=== PATIENT | male | born 1940 | race Caucasian/White ===

== ENCOUNTER → 2021-03-12 13:08 | Outpatient (BNVA) | payer MEDICARE, SELFPAY | PROVIDERS: PCP Emergency Medicine; Visit Provider Internal Medicine | DX: I25.10 Atherosclerotic heart disease of native coronary artery without angina pectoris (principal); E11.8 Type 2 diabetes mellitus with unspecified complications | CPT/HCPCS: 93005; 99212 ==

== ENCOUNTER 2021-05-28 20:25 | Emergency (ER) | payer MEDICARE, SELFPAY ==
--- NOTE | ~2021-05-28 | XR_ITS ---
EXAMINATION: XR CHEST CLINICAL INFORMATION: SOB COMPARISON: None TECHNIQUE: Frontal view of the chest was obtained. FINDINGS: No significant abnormality is noted involving the heart, lungs, mediastinum, bony thorax or soft tissues. XR/XR chest 1V IMPRESSION: Unremarkable chest examination.
[2021-05-28 20:48] VITALS: BP 175/85; PULSE 89; RESP 16; TEMP 36.7; O2SAT 98; BMI 23.9
[2021-05-28 22:14] LABS: Basophils Absolute Auto 0.1 X10*3/uL (0.0-0.2); Basophils Percent Auto 0.7 % (0-2); Eosinophils Absolute Auto 1.5 X10*3/uL (0.0-0.4); Eosinophils Percent Auto 15.3 % (0-4); Hematocrit 38.9 % (42-52); Hemoglobin 13.4 g/dl (14.0-18.0); Imm Gran Abs Auto 0.02 X10*3/uL (0.00-0.03); Imm Gran Pct Auto 0.2 % (0.0-0.4); Lymphocytes Absolute Auto 4.1 X10*3/uL (1.2-4.9); Lymphocytes Percent Auto 41.3 % (20-40); MANUAL DIFF FLAG NO; Mean Corpuscular HGB Conc 34.4 g/dl (31.0-36.0); Mean Corpuscular Hemoglobin 31.2 pg (27.0-33.0); Mean Corpuscular Volume 90.7 fL (80-98); Mean Platelet Volume 10.2 fL (9.4-12.4); Monocytes Absolute Auto 0.7 X10*3/uL (0.1-1.2); Monocytes Percent Auto 7.1 % (2-11); Neutrophils Absolute Auto 3.5 X10*3/uL (2.0-8.3); Neutrophils Percent Auto 35.4 % (45-73); Platelet Count 208 X10*3/uL (160-400); Red Blood Count 4.29 X10*6/uL (4.60-5.80); Red Cell Distribution Width 12.2 % (11.0-16.0)
[2021-05-28 22:27] LABS: IDNOW Serial# 9DD0AD1C; Strep A Nucleic Acid Negative (Negative)
[2021-05-28 22:29] LABS: COVID-19 Test Negative (Negative)
[2021-05-28 22:31] LABS: Anion Gap 13 (12-20); Blood Urea Nitrogen 27 mg/dL (9-16); Calcium 10.4 mg/dL (8.4-10.2); Carbon Dioxide 25 mmol/L (22-29); Chloride 100 mmol/L (96-108); Creatinine Clr Calc Pharmacy 23.1; Estimated Glomerular Filt Rate 31; Glucose Random 538 mg/dL (60-115); Sodium 133 mmol/L (135-145)
[2021-05-29 00:38] VITALS: BP 184/102; PULSE 89; RESP 20; O2SAT 99
[2021-05-29 06:07] VITALS: BP 84/51; PULSE 103; RESP 20; O2SAT 96
[2021-05-29 06:56] LABS: Troponin-I High Sensitivity 4.8 ng/L (<3.5-35.0)
--- NOTE | 2021-05-30 08:53 | ECG_ITS ---
Test Reason : THROAT TIGHTNESS Blood Pressure : / mmHG Vent. Rate : 088 BPM Atrial Rate : 088 BPM P-R Int : 164 ms QRS Dur : 084 ms QT Int : 376 ms P-R-T Axes : 071 -37 018 degrees QTc Int : 454 ms Normal sinus rhythm Left axis deviation Abnormal ECG When compared with ECG of 20-JUN-2017 14:43, No significant change was found Referred By: Rogelio Ramírez Electronically Signed By:DEVANTE KING
== END 2021-05-29 03:55 | disposition home or self-care (01) ==
PROVIDERS: Emergency Provider Emergency Medicine; PCP Emergency Medicine
DX: R06.02 Shortness of breath (principal); R13.10 Dysphagia, unspecified; Z20.822 Contact with and (suspected) exposure to COVID-19; Z79.899 Other long term (current) drug therapy
CPT/HCPCS: 36415; 71045; 80048; 84484; 85025; 87635; 87651; 93005; 99283

== ENCOUNTER 2021-05-29 15:15 | Emergency (ER) | payer MEDICARE, SELFPAY ==
--- NOTE | ~2021-05-29 | CT_ITS ---
EXAMINATION: CT SOFT TISSUE NECK WITHOUT CONTRAST CLINICAL INFORMATION: 80-year-old male with sensation of throat swelling. Evaluate for mass. COMPARISON: Chest radiographs from 06/20/2017 and 05/28/2021 TECHNIQUE: Noncontrast multidetector CT imaging was performed in the axial plane with generation of coronal and sagittal reformatted images. This CT examination was performed using dose optimization techniques as appropriate, variously including the following: *Automated exposure control *Adjustment of mA and/or kV according to patient size (this includes techniques or standardized protocols for targeted exams where dose is matched to indication/reason for exam; i.e. extremities or head) *Use of iterative reconstruction technique DLP: 514 mGy-cm FINDINGS: Parotid glands, submandibular glands, and thyroid gland are normal. The nasopharynx, oral cavity, tongue base, and tonsillar pillars are unremarkable. No contour abnormality within the oral cavity or pharyngeal mucosal space. The parapharyngeal fat planes are preserved. The hypopharynx, epiglottis, and preepiglottic space are unremarkable. Laryngeal structures normal. No fluid collections in the deep soft tissues. The visualized cervical and upper thoracic esophagus are unremarkable. No overt esophageal mass. No [place] diverticulum. Normal sized lymph nodes of the suprahyoid and infrahyoid neck without evidence of lymphadenopathy by size criteria. Calcified left hilar/peribronchial lymph nodes are compatible with sequela of remote granulomatous infection. Small calcified granuloma is present in the medial aspect of the right lower lobe. There is atherosclerotic calcification of cavernous carotid arteries. Skull base is intact and the mastoid air cells and middle ear cavities are clear. The visualized lower intracranial structures are unremarkable. No extra-axial fluid collection. The visualized paranasal sinuses are well aerated. Prior ocular lens replacements. Multilevel discovertebral junction changes of the cervical spine. There is moderate loss of disc space at C4-C5, C5-C6 and C6-C7. The hypertrophied uncovertebral joints cause multilevel neural foraminal stenosis, including severe right-sided neural foraminal stenosis at C5-C6. No prevertebral soft tissue swelling. There are peripheral pleural-parenchymal opacities and interstitial opacities of fibrosis in both upper lobes. A few very small calcified nodules are seen, including 0.2 cm calcified granuloma at the left lung apex Findings are compatible with sequela of remote infection. CT/CT soft tissue neck wo con IMPRESSION: * No acute imaging abnormalities. No evidence of soft tissue abscess, mass or lymphadenopathy in the neck. 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 * Moderate multilevel discovertebral degenerative changes, uncovertebral joint hypertrophy and multilevel neural foraminal stenosis of the cervical spine
[2021-05-29 15:46] VITALS: BP 134/86; PULSE 86; RESP 16; TEMP 36.6; O2SAT 98; BMI 25.4
[2021-05-29 16:10] LABS: Glucose, Whole Blood 319 mg/dL (60-115)
[2021-05-29 16:48] LABS: MANUAL DIFF FLAG NO
[2021-05-29 16:52] LABS: Basophils Absolute Auto 0.1 X10*3/uL (0.0-0.2); Basophils Percent Auto 0.7 % (0-2); Eosinophils Absolute Auto 1.1 X10*3/uL (0.0-0.4); Eosinophils Percent Auto 10.2 % (0-4); Hematocrit 41.3 % (42-52); Hemoglobin 13.9 g/dl (14.0-18.0); Imm Gran Abs Auto 0.03 X10*3/uL (0.00-0.03); Imm Gran Pct Auto 0.3 % (0.0-0.4); Lymphocytes Absolute Auto 3.9 X10*3/uL (1.2-4.9); Lymphocytes Percent Auto 35.5 % (20-40); Mean Corpuscular HGB Conc 33.7 g/dl (31.0-36.0); Mean Corpuscular Hemoglobin 30.5 pg (27.0-33.0); Mean Corpuscular Volume 90.6 fL (80-98); Mean Platelet Volume 10.4 fL (9.4-12.4); Monocytes Absolute Auto 0.9 X10*3/uL (0.1-1.2); Neutrophils Absolute Auto 4.9 X10*3/uL (2.0-8.3); Neutrophils Percent Auto 45.3 % (45-73); Platelet Count 221 X10*3/uL (160-400); Red Blood Count 4.56 X10*6/uL (4.60-5.80); White Blood Count 10.8 X10*3/uL (4.8-10.8)
[2021-05-29 17:03] LABS: Appearance Urine HAZY; Color Urine YELLOW; Glucose Urine UA >=1000 MG/DL (NEG); Leukocyte Esterase Urine 1+ (NEG); Nitrite Urine NEG (NEG); PH 5.5 (5.0-8.0); Specific Gravity - Urine 1.025 (1.005-1.025); UACC Culture Trigger YES; Urine Blood 1+ (NEG); Urine Ketones NEG (NEG); Urine Protein 2+ MG/DL (NEG-TRACE)
[2021-05-29 17:19] LABS: Alanine Aminotransferase 28 U/L (0-40); Albumin Level 4.5 g/dL (3.5-5.0); Alkaline Phosphatase 113 U/L (39-117); Anion Gap 15 (12-20); Aspartate Amino Transferase 23 U/L (5-37); Bilirubin Total 0.7 mg/dL (0.0-1.0); Blood Urea Nitrogen 27 mg/dL (9-16); Calcium 10.8 mg/dL (8.4-10.2); Carbon Dioxide 25 mmol/L (22-29); Chloride 100 mmol/L (96-108); Creatinine Clr Calc Pharmacy 22.5; Estimated Glomerular Filt Rate 35; Glucose Random 338 mg/dL (60-115); Potassium 5.1 mmol/L (3.3-5.1); Sodium 135 mmol/L (135-145); Total Protein 8.8 g/dL (6.5-8.0)
[2021-05-29 18:18] LABS: Bacteria Urine 4+ /LPF; WBC Urine 50-75 /HPF (0-4)
[2021-05-29 20:06] VITALS: BP 147/84; PULSE 71; RESP 16; TEMP 36.5; O2SAT 100
--- NOTE | 2021-05-29 20:24 | ED_ITS ---
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 Patient has been complaining of sore throat patient tested negative for COVID yesterday. Otherwise patient declined any headache, no chest pain, no difficulty breathing, no abdominal pain, no fever, no chills. Related Data Home Medications Medication Instructions Recorded Confirmed aspirin 81 mg tablet,delayed 81 mg PO DAILY 03/12/21 03/12/21 release atorvastatin 80 mg tablet 80 mg PO DAILY 03/12/21 03/12/21 metformin 500 mg tablet 500 mg PO BID 03/12/21 03/12/21 metoprolol succinate 25 mg 25 mg PO QAM 03/12/21 03/12/21 tablet,extended release 24 hr nitroglycerin 0.4 mg sublingual 0.4 mg SUBLINGUAL Q5M PRN 03/12/21 03/12/21 tablet omeprazole 20 mg capsule,delayed 20 mg PO QAM 03/12/21 03/12/21 release Allergies Allergy/AdvReac Type Severity Reaction Status Date / Time No Known Allergies Allergy Mild NONE Verified 03/12/21 13:46 Review of Systems Review of Systems: All other systems are reviewed and are negative Constitutional: Reports as per HPI and Reports no additional constitutional complaints Eyes: Reports as per HPI and Reports no additional eye complaints Reports system reviewed and no additional complaints, except as documented Cardiovascular: Reports as per HPI and Reports no additional cardiovascular complaints Respiratory: Reports as per HPI and Reports no additional respiratory complaints Gastrointestinal: Reports as per HPI and Reports no additional gastrointestinal complaints Genitourinary: Reports no additional female genitourinary complaints Musculoskeletal: Reports no additional musculoskeletal complaints Skin/Breast: Reports system reviewed and no additional complaints, except as docu Psychiatric: Reports no additional psychiatric complaints Endocrine: Reports no additional endocrine complaints Hematologic/Lymphatic: Reports no additional hematologic/lymphatic complaints Allergic/Immunologic: Reports no additional allergic/immunologic complaints Reports system reviewed and no additional complaints, except as documented and Reports Abnormal speech present [facility] Past Medical History Surgical History No pertinent past surgical history Family History Family History Father No problems noted. Mother No problems noted. Social History Social History Patient Tobacco Use Status: Never used Tobacco Use of substances other than those prescribed or required for medical reasons: No Advance Directives: No Advance Directives Information Provided: Yes Physical Exam Vital Signs: Vital Signs: Last Vital Signs Temp 97.7 F 05/29/21 20:06 Pulse 89 05/29/21 23:50 Resp 16 05/29/21 23:50 BP 121/85 05/29/21 23:50 Pulse Ox 99 05/29/21 23:50 Body Mass Index 25.4 Vital signs have been reviewed as appeared to be correct. Blood pressure normal. Heart rate normal. Respiration rate normal. Temperature normal. Oxygen saturation normal. Appearance: Alert. Oriented X3. No acute distress. Head: Normal external exam. Normocephalic. Atraumatic. No Prince signs noted. No raccoon eyes noted Eyes: PERRLA. EOMI. Conjunctiva and sclera normal. Eyelids normal. ENT: TM's Normal. Pharynx normal. Uvula midline. Moist mucous membranes. No trismus noted. No drooling noted. No muffled voice noted. Neck: Normal inspection. Neck supple. FROM. No adenopathy. Thyroid Normal. No meningeal signs. No neck mass noted. Patent airway no stridor. CVS: Normal heart rate and rhythm. Heart sound normal. No murmurs noted. Pulses normal throughout. Respiratory: No respiratory distress. Painless inspiration. Breath sounds nor mal. No wheezes/rales/rhonchi noted. Chest nontender. No accessory muscle usage noted or decreased air movement noted. Abdomen: Soft and nontender. Bowel sounds normal in all 4 quadrants. No distent ion noted. No organomegaly noted. No visible injury noted. Back: No CVA tenderness. Full range of motion noted. Skin: Skin warm and dry. Normal skin color. Normal skin turgor. No rashes/lesions/lacerations noted. Extremities: No lower extremity edema. Extremities exhibit normal range of mot ion. Extremities nontender. Neuro: Oriented X 3. Cranial nerve exam: II-XII are grossly intact No motor deficit. No sensory deficit. Reflexes normal. Course Course Course Narrative: Assessment and plan. 80-year-old male came in with elevated blood sugar, patient is taking 500 mg of Glucophage white a day which felt it is insufficient to control patient's diabetes, patient was given an extra 1000 mg of Glucophage which lowered the patient's blood sugar. Patient is negative for COVID, negative for strep pharyngitis, CT of the neck soft tissue is unremarkable with patent airway. Will discharge the patient home with increased dose of glucose fashion to a 1000 mg b.i.d., instruction was explained to the patient and the daughter with interpretation patient fully understands instructions. Medical Decision Making Lab Data Lab results reviewed: Yes I reviewed the patient's lab results. Result diagrams: 05/29/21 16:31 05/29/21 16:31 Labs: Lab Results 05/29/21 05/29/21 05/29/21 Range/Units 15:54 16:27 16:31 WBC 10.8 (4.8-10.8) X10*3/uL RBC 4.56 L (4.60-5.80) X10*6/uL Hgb 13.9 L (14.0-18.0) g/dl Hct 41.3 L (42-52) % MCV 90.6 (80-98) fL MCH 30.5 (27.0-33.0) pg MCHC 33.7 (31.0-36.0) g/dl RDW 12.0 (11.0-16.0) % Plt Count 221 (160-400) X10*3/uL MPV 10.4 (9.4-12.4) fL Immature Gran % (Auto) 0.3 (0.0-0.4) % Neut % (Auto) 45.3 (45-73) % Lymph % (Auto) 35.5 (20-40) % [place] % (Auto) 8.0 (2-11) % Eos % (Auto) 10.2 H (0-4) % Baso % (Auto) 0.7 (0-2) % Lymph # (Auto) 3.9 (1.2-4.9) X10*3/uL [place] # (Auto) 0.9 (0.1-1.2) X10*3/uL Eos # (Auto) 1.1 H (0.0-0.4) X10*3/uL Baso # (Auto) 0.1 (0.0-0.2) X10*3/uL Abs Immat Gran (auto) 0.03 (0.00-0.03) X10*3/uL Absolute Neuts (auto) 4.9 (2.0-8.3) X10*3/uL Absolute Nucleated RBC 0.000 (0.0-0.012) X10*3/uL Nucleated RBC % (auto) 0.0 (0.0-0.2) /100WBC Sodium (135-145) mmol/L Potassium (3.3-5.1) mmol/L Chloride (96-108) mmol/L Carbon Dioxide (22-29) mmol/L Anion Gap (12-20) BUN (9-16) mg/dL Creatinine (0.5-1.4) mg/dL Estim Creat Clear Calc Estimated GFR POC Glucose 319 H (60-115) mg/dL Random Glucose (60-115) mg/dL Calcium (8.4-10.2) mg/dL Total Bilirubin (0.0-1.0) mg/dL AST (5-37) U/L ALT (0-40) U/L Alkaline Phosphatase (39-117) U/L Total Protein (6.5-8.0) g/dL Albumin (3.5-5.0) g/dL Urine Color YELLOW Urine Appearance HAZY Urine pH 5.5 (5.0-8.0) Ur Specific [place] 1.025 (1.005-1.025) Urine Protein 2+ H (NEG-TRACE) MG/DL Urine Glucose (UA) >=1000 H (NEG) MG/DL Urine Ketones NEG (NEG) MG/DL Urine Blood 1+ H (NEG) Urine Nitrite NEG (NEG) Ur Leukocyte Esterase 1+ H (NEG) Urine RBC 1-4 (0) /HPF Urine WBC 50-75 H (0-4) /HPF Ur Squamous Epith Cells NONE /LPF Urine Bacteria 4+ /LPF 05/29/21 05/29/21 Range/Units 16:31 21:17 WBC (4.8-10.8) X10*3/uL RBC (4.60-5.80) X10*6/uL Hgb (14.0-18.0) g/dl Hct (42-52) % MCV (80-98) fL MCH (27.0-33.0) pg MCHC (31.0-36.0) g/dl RDW (11.0-16.0) % Plt Count (160-400) X10*3/uL MPV (9.4-12.4) fL Immature Gran % (Auto) (0.0-0.4) % Neut % (Auto) (45-73) % Lymph % (Auto) (20-40) % [place] % (Auto) (2-11) % Eos % (Auto) (0-4) % Baso % (Auto) (0-2) % Lymph # (Auto) (1.2-4.9) X10*3/uL [place] # (Auto) (0.1-1.2) X10*3/uL Eos # (Auto) (0.0-0.4) X10*3/uL Baso # (Auto) (0.0-0.2) X10*3/uL Abs Immat Gran (auto) (0.00-0.03) X10*3/uL Absolute Neuts (auto) (2.0-8.3) X10*3/uL Absolute Nucleated RBC (0.0-0.012) X10*3/uL Nucleated RBC % (auto) (0.0-0.2) /100WBC Sodium 135 (135-145) mmol/L Potassium 5.1 (3.3-5.1) mmol/L Chloride 100 (96-108) mmol/L Carbon Dioxide 25 (22-29) mmol/L Anion Gap 15 (12-20) BUN 27 H (9-16) mg/dL Creatinine 1.88 H (0.5-1.4) mg/dL Estim Creat Clear Calc 22.5 Estimated GFR 35 POC Glucose 225 H (60-115) mg/dL Random Glucose 338 H D (60-115) mg/dL Calcium 10.8 H (8.4-10.2) mg/dL Total Bilirubin 0.7 (0.0-1.0) mg/dL AST 23 (5-37) U/L ALT 28 (0-40) U/L Alkaline Phosphatase 113 (39-117) U/L Total Protein 8.8 H (6.5-8.0) g/dL Albumin 4.5 (3.5-5.0) g/dL Urine Color Urine Appearance Urine pH (5.0-8.0) Ur Specific [place] (1.005-1.025) Urine Protein (NEG-TRACE) MG/DL Urine Glucose (UA) (NEG) MG/DL Urine Ketones (NEG) MG/DL Urine Blood (NEG) Urine Nitrite (NEG) Ur Leukocyte Esterase (NEG) Urine RBC (0) /HPF Urine WBC (0-4) /HPF Ur Squamous Epith Cells /LPF Urine Bacteria /LPF Imaging Data Chest x-ray: Radiologist's impression: Unremarkable chest examination. Soft tissue neck CT: Radiologist's impression: *? No acute imaging abnormalities. No evidence of soft tissue abscess, mass or lymphadenopathy in the neck. *? 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 *? Moderate multilevel discovertebral degenerative changes, uncovertebral joint hypertrophy and multilevel neural foraminal stenosis of the cervical spine Discharge Plan Discharge Clinical Impression: Acute sore throat, Hyperglycemia Patient Disposition: Home, Self-Care Instructions: Diabetic Hyperglycemia (ED) Additional Instructions: Increase Glucophage from 500 mg twice a day to 1000 mg twice a day (2 pills of 500 mg in the morning and 2 pills at night) Prescriptions: No Action metoprolol succinate 25 mg tablet extended release 24 hr 25 mg PO QAM RF: 0 omeprazole 20 mg capsule,delayed release(DR/EC) 20 mg PO QAM RF: 0 aspirin 81 mg tablet,delayed release (DR/EC) 81 mg PO DAILY RF: 0 atorvastatin 80 mg tablet 80 mg PO DAILY RF: 0 metformin 500 mg tablet 500 mg PO BID RF: 0 nitroglycerin 0.4 mg tablet, sublingual 0.4 mg sublingual Q5M PRNRF: 0 Referrals: Physician,Unknown [Primary Care Provider] - 2 days Interventions: ED Discharge Assessment Last Done: 05/29/21 23:50 Discharge Date/Time: 05/29/21 23:51
[2021-05-29] MEDS: Acetaminophen 325 MG TABLET 650 MG PO (20:25)
[2021-05-29] MEDS: 0.9 % Sodium Chloride 1,000 ML 999 ML IVCONT (20:35)
[2021-05-29] MEDS: metFORMIN HCl 1,000 MG TABLET 1000 MG PO (20:38)
--- NOTE | 2021-05-29 21:18 | PC.NURSE ---
PT received metformin for elevated blood sugar. POC was 225 at 21:18.
[2021-05-29 21:23] LABS: Glucose, Whole Blood 225 mg/dL (60-115)
--- NOTE | 2021-05-29 21:23 | PC.NURSE ---
Repeat poc taken 225 improvement provider aware.
[2021-05-29 23:50] VITALS: BP 121/85; PULSE 89; RESP 16; O2SAT 99
== END 2021-05-29 23:51 | disposition home or self-care (01) ==
PROVIDERS: Emergency Provider Emergency Medicine
DX: J02.9 Acute pharyngitis, unspecified (principal); R73.9 Hyperglycemia, unspecified; M54.2 Cervicalgia; Z79.899 Other long term (current) drug therapy; Z79.82 Long term (current) use of aspirin
CPT/HCPCS: 36415; 70490; 80053; 81001; 81003; 82947; 85025; 87086; 96360; 99284

== ENCOUNTER 2021-06-03 02:25 | Emergency (ER) | payer MEDICARE, SELFPAY ==
[2021-06-03 02:30] VITALS: BP 139/90; PULSE 91; RESP 18; O2SAT 99; BMI 20.4
--- NOTE | 2021-06-03 02:50 | ED_ITS ---
HPI - Dizziness General Chief Complaint: Dizziness Stated Complaint: Dizziness Time Seen by Provider: 06/03/21 02:49 Source: patient and family Mode of arrival: ambulatory Limitations: no limitations History of Present Illness HPI Narrative: Patient is 80 years old with history of diabetes on metformin comes here for throat pain and dizziness. Patient was seen here on 05/29 CT scan of the neck was negative patient was advised to increase the dose of metformin to 1000 twice daily from 500mg twice daily patient creatinine was 1.88 with history of CKD. On arrival today blood sugar was 202 at home was 324. Patient also complaining of dizziness with spinning movements which started yesterday with history of same in the past no headache no neck pain. Patient unable to eat much because of whenever he eats something he feel pain in his throat. Related Data Home Medications Medication Instructions Recorded Confirmed aspirin 81 mg tablet,delayed 81 mg PO DAILY 03/12/21 03/12/21 release atorvastatin 80 mg tablet 80 mg PO DAILY 03/12/21 03/12/21 metformin 500 mg tablet 500 mg PO BID 03/12/21 03/12/21 metoprolol succinate 25 mg 25 mg PO QAM 03/12/21 03/12/21 tablet,extended release 24 hr nitroglycerin 0.4 mg sublingual 0.4 mg SUBLINGUAL Q5M PRN 03/12/21 03/12/21 tablet omeprazole 20 mg capsule,delayed 20 mg PO QAM 03/12/21 03/12/21 release Previous Rx's Medication Instructions Recorded cefpodoxime 100 mg tablet 100 mg PO BID #20 tab 06/03/21 fluconazole 100 mg tablet 100 mg PO DAILY #7 tab 06/03/21 (Diflucan) glipizide 5 mg tablet 5 mg PO BID #60 tab 06/03/21 meclizine 12.5 mg tablet 12.5 mg PO TID PRN #30 tab 06/03/21 Allergies Allergy/AdvReac Type Severity Reaction Status Date / Time No Known Allergies Allergy Mild NONE Verified 03/12/21 13:46 Review of Systems Review of Systems: Yes all other systems are reviewed and are negative [facility] Past Medical History Surgical History No pertinent past surgical history Family History Family History Father No problems noted. Mother No problems noted. Social History Social History Alcohol intake: unknown Patient Tobacco Use Status: Never used Tobacco Use of substances other than those prescribed or required for medical reasons: No Advance Directives: No Physical Exam Vital Signs: Vital Signs: Last Vital Signs Pulse 91 06/03/21 02:30 Resp 18 06/03/21 02:30 BP 139/90 H 06/03/21 02:30 Pulse Ox 99 06/03/21 02:30 Body Mass Index 20.4 Appearance: Alert. Oriented X3. No acute distress. Eyes: PERRLA, No Nystagmus ENT: . Oral Mucosa moist oral thrush+ Neck: Normal inspection. Neck supple. CVS: Normal heart rate and rhythm. Pulses normal. Respiratory: No respiratory distress. Equal air entry bilateral, no wheezing/rales/rhonchi Abdomen: Soft and nontender. Bowel sounds are present, no mass palpable, no CVA tenderness Skin: Skin warm and dry. Normal skin color. Normal skin turgor. Extremities: No lower extremity edema. No calf tenderness Neuro: Oriented X 3. No motor deficit. No sensory deficit.No cerebellar signs , cranial nerves II-XII intact Course Reevaluation(s) Reevaluation #1: Patient has oral thrush because of the throat pain likely. Will give him Diflucan. Patient is on metformin with CKD with creatinine in the range of 1.8 we will stop metformin as this is not the right medication when patient has CKD. Will start the patient on glipizide for now as this does not have any active metabolic , family is not ready yet for insu wisam had a follow-up plan to see his PCP next week and decide. About dizziness patient will be given meclizine 12.5 mg 3 times a day patient had dizziness in the past for similar symptoms Time: 04:35 [facility] - Dizziness Lab Data Attestation: I reviewed the patient's lab results. Labs: Lab Results 06/03/21 Range/Units 03:38 POC Glucose 202 H (60-115) mg/dL ECG Data Attestation: I personally reviewed and interpreted this ECG as follows: Interpretation: Normal sinus rhythm heart rate 82 beats per minute left axis deviation normal intervals normal axis no acute ST wave changes no acute ischemic Discharge Plan Discharge Clinical Impression: Candidiasis of mouth Benign paroxysmal positional vertigo Qualifiers: Laterality: bilateral Qualified Code(s): H81.13 - Benign paroxysmal vertigo, bilateral Patient Disposition: Home, Self-Care Instructions: Oral Candidiasis (ED), Benign Paroxysmal Positional Vertigo (ED) Additional Instructions: Drink plenty of fluids Stop metformin as your kidneys are weak Start on glipizide 5 mg 2 times daily Check blood sugar daily and follow with PCP Take meclizine 12.5 mg 3 times a day as needed for dizziness Take Diflucan 100 mg daily for oral thrush Prescriptions: New fluconazole [Diflucan] 100 mg tablet 100 mg PO DAILY Qty: 7 RF: 0 glipizide 5 mg tablet 5 mg PO BID Qty: 60 RF: 0 meclizine 12.5 mg tablet 12.5 mg PO TID PRN (Reason: dizziness) Qty: 30 RF: 0 cefpodoxime 100 mg tablet 100 mg PO BID Qty: 20 RF: 0 No Action metoprolol succinate 25 mg tablet extended release 24 hr 25 mg PO QAM RF: 0 omeprazole 20 mg capsule,delayed release(DR/EC) 20 mg PO QAM RF: 0 aspirin 81 mg tablet,delayed release (DR/EC) 81 mg PO DAILY RF: 0 atorvastatin 80 mg tablet 80 mg PO DAILY RF: 0 metformin 500 mg tablet 500 mg PO BID RF: 0 nitroglycerin 0.4 mg tablet, sublingual 0.4 mg sublingual Q5M PRNRF: 0 Interventions: ED Discharge Assessment Last Done: 06/03/21 05:03 Discharge Date/Time: 06/03/21 05:06
--- NOTE | 2021-06-03 02:54 | PC.NURSE ---
The initial complaint was dizziness but when asking the patient why he was here he stated that he was having issues swallowing. Patient was just here 1 week ago for the same complaint and was discharged home. MD at bedside for evaluation.
[2021-06-03] MEDS: Meclizine HCl 25 MG TABLET PO (03:21)
[2021-06-03] MEDS: Fluconazole 150 MG TABLET PO (03:21)
[2021-06-03] MEDS: Lidocaine HCl Viscous 2 % 15 ML SOLUTION MUCOUS MEM (03:21)
[2021-06-03] MEDS: Amoxicillin/Potassium Clav 875 MG TABLET PO (03:35)
[2021-06-03 03:43] LABS: Glucose, Whole Blood 202 mg/dL (60-115)
--- NOTE | 2021-06-03 07:52 | ECG_ITS ---
Test Reason : DIZZINESS Blood Pressure : / mmHG Vent. Rate : 082 BPM Atrial Rate : 082 BPM P-R Int : 162 ms QRS Dur : 084 ms QT Int : 382 ms P-R-T Axes : 078 -33 035 degrees QTc Int : 446 ms Normal sinus rhythm Left axis deviation Abnormal ECG When compared with ECG of 29-MAY-2021 00:50, No significant change was found Referred By: Sotero Dalal Electronically Signed By:DEVANTE KING
== END 2021-06-03 05:06 | disposition home or self-care (01) ==
PROVIDERS: Emergency Provider Internal Medicine
DX: B37.0 Candidal stomatitis (principal); H81.13 Benign paroxysmal vertigo, bilateral; E11.9 Type 2 diabetes mellitus without complications; Z79.84 Long term (current) use of oral hypoglycemic drugs; Z79.899 Other long term (current) drug therapy; Z79.82 Long term (current) use of aspirin
CPT/HCPCS: 82947; 93005; 99284

== ENCOUNTER → 2022-05-13 13:57 | Outpatient (BNVA) | payer MEDICARE, SELFPAY | PROVIDERS: PCP Internal Medicine; Visit Provider Internal Medicine | DX: I25.10 Atherosclerotic heart disease of native coronary artery without angina pectoris (principal); I35.9 Nonrheumatic aortic valve disorder, unspecified; I05.9 Rheumatic mitral valve disease, unspecified; E11.8 Type 2 diabetes mellitus with unspecified complications; Z79.82 Long term (current) use of aspirin; Z79.84 Long term (current) use of oral hypoglycemic drugs; Z79.899 Other long term (current) drug therapy | CPT/HCPCS: 93005; 99212 ==

== ENCOUNTER 2023-05-19 13:29 | Outpatient (AMB) | payer MEDICARE, SELFPAY ==
[2023-05-19 13:52] VITALS: BP 110/80; PULSE 77; BMI 25.9
--- NOTE | 2023-05-19 13:52 | A.OFFVIS_ITS ---
Intake Vital Signs 05/19/23 13:52 Height 5 ft 3 in Weight 145 lb 15.136 oz BMI 25.9 BP 110/80 Blood Pressure Location Lt brachial Position Sitting Pulse 77 Intake Visit Reasons: 1 year follow up Intake Note: 1 year follow up w/ EKG Audio Visual Design Engineer Required: Yes Audio Visual Design Engineer Language: Chemical Laboratory Technician Name: Roney [id number] Accompanied by: Spouse Allergies No Known Allergies Allergy (Mild, Verified 05/19/23 13:52) NONE Medication List - Last Reconciled 05/19/23 by Ben Tomlinson MD aspirin 81 mg PO DAILY atorvastatin 80 mg PO DAILY dapagliflozin propanediol (Farxiga) 10 mg PO QAM glipizide 5 mg PO BID metformin 500 mg PO BID metoprolol succinate ER 25 mg PO QAM nitroglycerin 0.4 mg sublingual Q5M PRN omeprazole 20 mg PO QAM HPI HPI Comments History of Present Illness Details Solomon returns for follow-up regarding coronary artery disease. He had an inferior STEMI in 2016. Discussed with patient using work from home. He states that he is feeling fine. No cardiac symptoms like angina or shortness of breath or anything along those lines. [facility] Surgical History No pertinent past surgical history Family History Father No problems noted. Mother No problems noted. Social History Alcohol intake: unknown Patient Tobacco Use Status: Never used Tobacco Review of Systems Const Denies weakness ENT Denies dizziness Card Denies chest pain, Denies chest pain with activity, Denies syncope, Denies rapid heart rate, Denies pedal edema, Denies edema, Denies leg edema, Denies lightheadedness, Denies palpitations, Denies dyspnea, Denies dyspnea on exertion and Denies orthopnea Resp Denies cough, Denies dyspnea and Denies dyspnea on exertion GI Denies hematochezia and Denies change in stool character Musc Denies abnormal gait, Denies muscle cramps, Denies muscle weakness, Denies numbness, Denies radiating pain into limb and Denies tingling Neuro Denies abnormal gait, Denies dizziness, Denies syncope, Denies numbness, Denies tingling and Denies weakness Endo Denies palpitations Physical Exam Vital Signs: Last Vital Signs Pulse 77 05/19/23 13:52 BP 110/80 05/19/23 13:52 BMI result Body Mass Index 25.9 Const General: comfortable and no acute distress Orientation/consciousness: patient oriented x3 HEENT Other: Unremarkable Head: Yes normal to inspection Neck Neck: Yes normal visual inspection Chest Chest palpation & inspection: normal inspection of the chest Resp Auscultation: clear to auscultation bilaterally Cardio Palpation: normal PMI Heart sounds: S1 normal heart sound present, S2 normal heart sound present, no gallops, no murmurs and no rubs GI Palpation (GI): Soft to palpation Back/Spine/Pelvis Other: unremarkable Skin General skin exam: no rashes or lesions noted Neuro General: patient oriented x3 Extrem General: Yes normal to inspection Psych Mental Status: mental status grossly normal Assessment & Plan Assessment & Plan (1) Atherosclerotic cardiovascular disease: Code(s): I25.10 - Atherosclerotic heart disease of [place] coronary artery without angina pectoris Plan: Cardiac catheterization reviewed from 2015. At that time, RCA was small in size and thought to have chronic stenosis.? He also had intermediate grade lesions in the LAD; 100% stenosis distal circumflex.? Continue aspirin, beta-blockers and statins. As [facility] goes to the [facility], lipids can be followed through the PCP. Need not duplicate. (2) Type 2 diabetes mellitus with unspecified complications: Code(s): E11.8 - Type 2 diabetes mellitus with unspecified complications Plan: On a combination of glipizide, metformin, Farxiga. (3) Aortic valve calcification: Code(s): I35.9 - Nonrheumatic aortic valve disorder, unspecified Plan: Last echocardiogram from 2019 shows mild aortic valve calcification but no valvular dysfunction. There is a possibility of aortic stenosis in the future. Can be reassessed as needed. (4) Mitral annular calcification: Code(s): I05.9 - Rheumatic mitral valve disease, unspecified Plan: Echocardiogram from 2019 with mild mitral annular calcification but no valvular dysfunction. No specific management. Plan Total time spent including review of medical records, counseling, documentation, use of solderer dipper, coordination of care-32 minutes. Coding Level of Care Code Est Pt Level 4 (72096) Diagnoses Atherosclerotic cardiovascular disease I25.10 Type 2 diabetes mellitus with unspecified complications E11.8 Aortic valve calcification I35.9 Mitral annular calcification I05.9
== END 2023-05-19 14:08 | disposition home or self-care (01) ==
PROVIDERS: Visit Provider Internal Medicine
DX: I25.10 Atherosclerotic heart disease of native coronary artery without angina pectoris (principal); E11.8 Type 2 diabetes mellitus with unspecified complications; I35.9 Nonrheumatic aortic valve disorder, unspecified; I05.9 Rheumatic mitral valve disease, unspecified
CPT/HCPCS: 93010; 99214

== ENCOUNTER → 2023-05-19 13:29 | Outpatient (BNVA) | payer MEDICARE, SELFPAY | PROVIDERS: Visit Provider Internal Medicine | DX: I25.10 Atherosclerotic heart disease of native coronary artery without angina pectoris (principal); I35.9 Nonrheumatic aortic valve disorder, unspecified; I05.9 Rheumatic mitral valve disease, unspecified; E11.8 Type 2 diabetes mellitus with unspecified complications | CPT/HCPCS: 93005; 99212 ==

== ENCOUNTER 2023-07-07 08:03 | Outpatient (REF) | payer MEDICARE, SELFPAY ==
[2023-07-07 11:29] LABS: MANUAL DIFF FLAG NO
[2023-07-07 11:45] LABS: Basophils Absolute Auto 0.1 X10*3/uL (0.0-0.2); Basophils Percent Auto 0.8 % (0-2); Eosinophils Absolute Auto 1.9 X10*3/uL (0.0-0.4); Eosinophils Percent Auto 19.2 % (0-4); Hematocrit 46.7 % (42.0-52.0); Hemoglobin 15.4 g/dl (14.0-18.0); Imm Gran Abs Auto 0.02 X10*3/uL (0.00-0.03); Imm Gran Pct Auto 0.2 % (0.0-0.4); Lymphocytes Absolute Auto 4.1 X10*3/uL (1.2-4.9); Lymphocytes Percent Auto 42.3 % (20-40); Mean Corpuscular Hemoglobin 30.6 pg (27.0-33.0); Mean Corpuscular Volume 92.7 fL (80.0-98.0); Monocytes Absolute Auto 0.8 X10*3/uL (0.1-1.2); Neutrophils Absolute Auto 2.8 x10*3/uL (2.0-8.3); Neutrophils Percent Auto 29.5 % (45-73); Platelet Count 251 X10*3/uL (160-400); Red Blood Count 5.04 X10*6/uL (4.60-5.80); Red Cell Distribution Width 13.3 % (11.0-16.0); White Blood Count 9.6 X10*3/uL (4.8-10.8)
[2023-07-07 11:56] LABS: Estimated Average Glucose 171 mg/dL; Hemoglobin A1c % 7.6 % (<6.0)
[2023-07-07 12:19] LABS: Anion Gap 15 (12-20); Blood Urea Nitrogen 27 mg/dL (9-16); Calcium 10.3 mg/dL (8.4-10.2); Carbon Dioxide 24 mmol/L (22-29); Chloride 104 mmol/L (96-108); Estimated Glomerular Filt Rate 37; Glucose Random 150 mg/dL (60-115); Sodium 138 mmol/L (135-145); Vitamin D 25-OH Total 54.6 ng/mL (>30)
[2023-07-07 12:19] LABS: Creatinine Urine 99.63 mg/dL; Microalbum/Creatinine Ratio Ur 215.7 ug/mg cr (<30)
[2023-07-08 13:48] LABS: Calcium (PTHI) 10.1 mg/dL (8.6-10.3); PTHI 81 pg/mL (16-77)
== END 2023-07-07 08:04 | disposition home or self-care (01) ==
LOC: HO.HHCL 08:03
PROVIDERS: Visit Provider Internal Medicine
DX: E11.22 Type 2 diabetes mellitus with diabetic chronic kidney disease (principal); N18.32 Chronic kidney disease, stage 3b; Z79.4 Long term (current) use of insulin
CPT/HCPCS: 36415; 80048; 82043; 82306; 82570; 83036; 83970; 85025

== ENCOUNTER 2023-07-22 17:02 | Inpatient (IN) | payer OTHER, SELFPAY ==
[2023-07-22] VITALS (7 sets, daily range): BP systolic 117–137; BP diastolic 73–85; PULSE 112–123; RESP 18–24; TEMP 37.3–39.6; O2SAT 95–98; BMI 26.1
--- NOTE | ~2023-07-22 | XR_ITS ---
EXAMINATION: CHEST 2 VIEWS CLINICAL INFORMATION: cough, SOB. COMPARISON: 05/28/2021. TECHNIQUE: AP frontal and lateral views of the chest obtained FINDINGS: The lungs are hypoexpanded. Chronic appearing reticular markings but no superimposed focal infiltrate, effusion, edema, or pneumothorax. Cardiac and mediastinal silhouettes are within normal limits for technique. No acute bony abnormality seen XR/XR chest 2V IMPRESSION: Hypoexpanded but otherwise no evidence of acute disease.
--- NOTE | 2023-07-22 17:36 | ECG_ITS ---
Test Reason : SEPSIS Blood Pressure : / mmHG Vent. Rate : 126 BPM Atrial Rate : 126 BPM P-R Int : 164 ms QRS Dur : 082 ms QT Int : 304 ms P-R-T Axes : 063 -50 039 degrees QTc Int : 440 ms Sinus tachycardia RSR' or QR pattern in V1 suggests right ventricular conduction delay Left anterior fascicular block Abnormal ECG When compared with ECG of 03-JUN-2021 02:36, Vent. rate has increased BY 44 BPM Referred By: Radha Neil Electronically Signed By:ALEA SELLERS MD
--- NOTE | 2023-07-22 17:44 | ED_ITS ---
HPI - General Adult General Chief complaint: Nausea/Vomiting/Diarrhea Stated complaint: COUGH,FEBRILE,WEAKNESS Time Seen by Provider: 07/22/23 17:06 History of Present Illness HPI narrative: Patient is an 82-year-old male with reported past medical history of CKD stage 3, type 2 diabetes, myocardial infarction 4 years ago who presents to the emergency department via EMS with multiple complaints. Per patient and his daughter he has been experiencing a productive cough with green phlegm for the past 2-3 days. Today he is experiencing a headache, sore throat, significant weakness unable to stand up alone, at baseline he is ambulatory without the use of assistive devices independently, shortness of breath, chills, tactile fever. He also had 2 episodes of bilious vomiting today, one occurring just prior to arrival. Denies chest pain, abdominal pain, constipation, diarrhea, genitourinary symptoms. Related Data Home Medications Medication Instructions Recorded Confirmed aspirin 81 mg tablet,delayed 81 mg PO DAILY 03/12/21 07/22/23 release atorvastatin 80 mg tablet 80 mg PO DAILY 03/12/21 07/22/23 metoprolol succinate 25 mg 25 mg PO QAM 03/12/21 07/22/23 tablet,extended release 24 hr omeprazole 20 mg capsule,delayed 20 mg PO QAM 03/12/21 07/22/23 release dapagliflozin propanediol 10 mg 10 mg PO QAM 05/13/22 07/22/23 tablet (Farxiga) Previous Rx's Medication Instructions Recorded glipizide 5 mg tablet 5 mg PO BID #60 tabs 06/03/21 Allergies Allergy/AdvReac Type Severity Reaction Status Date / Time No Known Allergies Allergy Mild NONE Verified 07/22/23 17:41 Review of Systems 2 Review of Systems: Yes all other systems are reviewed and are negative [facility] Past Medical History Attestation statement: The following information was validated with the patient. Source: old records reviewed Medical History Gastroesophageal reflux disease Type 2 diabetes mellitus with unspecified complications Atherosclerotic cardiovascular disease Surgical History No pertinent past surgical history Family History Family History Father No problems noted. Mother No problems noted. Social History Social History Alcohol intake: never Patient Tobacco Use Status: Never used Tobacco Smoked in Last 30 Days: No Use of substances other than those prescribed or required for medical reasons: No Advance Directives: No Advance Directives Information Provided: No Nutrition Risks: No Nutritional Risk Physical Exam ED Vital Signs: Vital Signs - 24 hr 07/22/23 17:44 07/22/23 18:17 07/22/23 18:20 Temperature 103.2 F H Pulse Rate 117 H 123 H Respiratory Rate 20 18 20 Blood Pressure 126/74 137/85 Pulse Oximetry 95 97 Oxygen Delivery Method Room Air Room Air 07/22/23 18:52 07/22/23 19:24 Temperature 102.3 F H 100.6 F H Pulse Rate 117 H 112 H Respiratory Rate 20 18 Blood Pressure 117/73 133/80 Pulse Oximetry 97 96 Oxygen Delivery Method Room Air Room Air BMI result Body Mass Index 26.1 Appearance: Alert.?Oriented to person, place and time. No acute distress.?Normal affect. Eyes: Pupils equal, round and reactive to light.? ENT: Pharynx normal.??No Tonsillar hypertrophy, no exudate. Uvula midline. No trismus. No drooling. Neck: Normal inspection.? Neck supple.?? No cervical lymphadenopathy. CVS: Heart sounds normal. Normal heart rate and rhythm.? Pulses normal.?? Respiratory: No respiratory distress.? Lung sounds clear diminished bilateral bases, clear to the apices. Abdomen: Soft and non-tender. Normoactive bowel sounds. No pulsatile mass.?? Skin: Skin warm and dry.? Normal skin color.? Normal skin turgor.?? Extremities: No lower extremity edema.? No calf ttp? Neuro: Moves all extremities spontaneously. Sensation intact bilaterally. CN II- XII intact. No focal neuro deficits. Ambulates with normal steady gait. Course Reevaluation(s) Reevaluation #1: COVID- 19 and influenza testing are negative. BUN creatinine consistent with baseline, no electrolyte abnormality. No lactic acidosis. LFTs normal. Lipase within normal limits. CBC revealing leukocytosis with left shift, no anemia. Time: 18:38 Reevaluation #2: the time patient wasnoted to have urinary tract infection, sepsis secondary to UTI, already received coverage with rocephin and IV crystalloids reviewed this case with hospitalist, Dr. Walsh, who accepts patient for admission. Patient and family agreeable with plan of care. Time: 19:49 Medications Administered Generic Name Dose Route Start Last Admin Trade Name Freq PRN Reason Stop Dose Admin Enoxaparin Sodium 30 mg 07/22/23 20:00 07/22/23 20:20 Enoxaparin Sodium 30 Mg/0.3 Ml Syringe SUBCUT 30 mg Q24H HAIR Administration Insulin Human Lispro 0 unit 07/22/23 21:00 07/22/23 21:26 Insulin Lispro 100 Unit/Ml 3 Ml Vial SUBCUT 2 unit QIDACHS HAIR Administration Protocol Discontinued Medications Generic Name Dose Route Start Last Admin Trade Name Freq PRN Reason Stop Dose Admin Acetaminophen 975 mg 07/22/23 17:51 07/22/23 18:05 Acetaminophen 325 Mg Tablet PO 07/22/23 17:52 975 mg ONCE ONE Administration Ceftriaxone Sodium 1 gm/ 50 mls @ 100 mls/hr 07/22/23 17:35 07/22/23 18:36 Sodium Chloride IV 07/22/23 18:04 Infused ONCE ONE Infusion Sodium Chloride 2,007 mls @ 2,007 mls/hr 07/22/23 17:43 07/22/23 18:59 Ns 30 ml/kg infuse over 1 hr (2007 ml) 07/22/23 18:42 Infused IV Infusion .Q1H STA Medical Decision Making Medical Decision Making MDM Narrative: patient is an 82-year-old male with past medical history of CKD stage 3, diabetes, history of myocardial infarction who presents emergency department for evaluation of headache, sore throat, cough, weakness, SOB. Onset of symptoms 3 days ago. At the time my initial examination he is in no respiratory distress, speaking clear full sentences, lung sounds diminished at the bases clear at the apices, no tachypnea or hypoxia. He is noted to be febrile and tachycardic, meeting SIRS criteria, sepsis alert was called, blood cultures and lactic acid to be obtained, given primarily respiratory symptoms will cover with Rocephin at this time and sepsis fluid bolus ordered. in addition will obtain CBC to evaluate for leukocytosis/ anemia, CMP and lipase to evaluate for abnormal electrolytes /abnormal renal function/ abnormal hepatic/biliary function, EKG and troponin to evaluate for arrhythmia/ischemia/ACS. Chest x-ray to evaluate for consolidation/ infiltrate/ mass/ pulmonary congestion, COVID- 19/influenza testing, Urinalysis. Differential Diagnosis Differential Diagnoses: The differential diagnosis associated with the presentation includes ( sepsis, COVID- 19, influenza, pneumonia, rhinovirus, adenovirus, gastritis.) Admission/Observation Consideration of admission/observation: Escalation of care including admission/observation considered ( see narrative above and course narrative for further details) Consult Healthcare Provider Management of the patient was discussed with: Hospitalist Lab Data MDM Lab Attestation statement: I reviewed the patient's lab results. ( see course narrative for further details) 07/22/23 17:59 07/22/23 17:59 Labs: Lab Results 07/22/23 07/22/23 07/22/23 Range/Units 17:51 17:59 18:54 WBC 14.7 H (4.8-10.8) X10*3/uL RBC 4.91 (4.60-5.80) X10*6/uL Hgb 15.3 (14.0-18.0) g/dl Hct 44.4 (42.0-52.0) % MCV 90.4 (80.0-98.0) fL MCH 31.2 (27.0-33.0) pg MCHC 34.5 (31.0-36.0) g/dl RDW 13.0 (11.0-16.0) % Plt Count 230 (160-400) X10*3/uL MPV 9.3 L (9.4-12.4) fL Immature Gran % (Auto) 0.3 (0.0-0.4) % Neut % (Auto) 80.7 H (45-73) % Lymph % (Auto) 9.7 L (20-40) % [place] % (Auto) 6.7 (2-11) % Eos % (Auto) 2.1 (0-4) % Baso % (Auto) 0.5 (0-2) % Lymph # (Auto) 1.4 (1.2-4.9) X10*3/uL [place] # (Auto) 1.0 (0.1-1.2) X10*3/uL Eos # (Auto) 0.3 (0.0-0.4) X10*3/uL Baso # (Auto) 0.1 (0.0-0.2) X10*3/uL Abs Immat Gran (auto) 0.05 H (0.00-0.03) X10*3/uL Absolute Neuts (auto) 11.8 H (2.0-8.3) x10*3/uL Absolute Nucleated RBC 0.000 (0.0-0.012) X10*3/uL Nucleated RBC % (auto) 0.0 (0.0-0.2) /100WBC Sodium 137 (135-145) mmol/L Potassium 4.6 (3.3-5.1) mmol/L Chloride 104 (96-108) mmol/L Carbon Dioxide 25 (22-29) mmol/L Anion Gap 13 (12-20) BUN 22 H (9-16) mg/dL Creatinine 1.82 H (0.5-1.4) mg/dL Estim Creat Clear Calc 25.6 Estimated GFR 36 Random Glucose 173 H (60-115) mg/dL Lactic Acid 1.7 (0.5-2.0) mmol/L Calcium 10.1 (8.4-10.2) mg/dL Magnesium 1.6 (1.6-2.6) mg/dL Total Bilirubin 0.6 (0.0-1.0) mg/dL AST 28 (5-37) U/L ALT 24 (0-40) U/L Alkaline Phosphatase 101 (39-117) U/L Troponin I High Sens 6.4 (<3.5-35.0) ng/L B-Natriuretic Peptide 24 (<100) pg/mL Total Protein 9.0 H (6.5-8.0) g/dL Albumin 4.2 (3.5-5.0) g/dL Lipase 49 (8-78) U/L Urine Color Yellow Urine Appearance Cloudy Urine pH 6.5 (5.0-9.0) Ur Specific [place] 1.015 (1.005-1.025) Urine Protein 100 (2+) H (Neg-Trace) mg/dL Urine Glucose (UA) Negative (Negative) mg/dL Urine Ketones Negative (Negative) mg/dL Urine Blood Trace H (Negative) Urine Nitrite Negative (Negative) Ur Leukocyte Esterase Small (1+) H (Negative) Urine RBC 0-2 (0-2) /HPF Urine WBC >50 H (0-5) /HPF Ur Squamous Epith Cells 0-2 (0-2) /HPF Urine Bacteria 4+ (None Seen) Hyaline Casts 0-2 (0-2) /LPF COVID-19 (EDY) Negative (Negative) COVID-19 Clin Com See Note Influenza Type A (YELENA) Negative (Negative) Influenza Type B (YELENA) Negative (Negative) Influenza A & B Note See Note Independent Interpretation I performed an independent interpretation of an: EKG and Plain X-Ray ( I personally interpreted x-ray and agree with radiologist impression) Interpretation: Rate:126 Rhythm:? sinus tachycardia Normal P waves.? Normal NAGA.?? Normal QRS complex.?? ST T wave :?? no ST elevation, no ST depression qTC:440 The study has been interpreted contemporaneously by me. Radiology Impression Discussion of test interpretation with radiology: I have reviewed the radiologist's reading. Radiologist Impression: XR/XR chest 2V IMPRESSION: Hypoexpanded but otherwise no evidence of acute disease. Independent Historian Clinical information obtained from an independent historian. History obtained from or confirmed by: Spouse ( present at bedside who confirms history) and Other ( spoke with daughter on phone who confirms history) External Record Review External record reviewed: Prior outpatient labs Critical Care Time Critical Care Time Critical Care Time: Yes Total Critical Care Time: 35 Attestation: I personally attest to this critical care time spent taking care of the patient exclusive of all other billable procedures was approximately 35 minutes including initial evaluation of patient, ordering tests, x-ray interpretation, EKG interpretation, medical consultation, documentation, re-evaluation. Discharge Plan Discharge Clinical Impression: Acute UTI, Sepsis Patient Disposition: Admitted As Inpatient
--- NOTE | 2023-07-22 17:45 | PC.NURSE ---
a&ox3. pt transferred from 22H to 2. sepsis protocol initiated by ED provider. temp 103.2 - provider aware. sinus tachy on iuss master analyst. pt cool/pale/diaphoretic. pt no longer actively vomiting at this time. provider assessing pt. pt c/o n/v/cough/fever/chills since this morning. pt c/o no pain at this time. partner bedside. call hutton placed within reach.
--- NOTE | 2023-07-22 18:03 | PC.NURSE ---
20gIV placed in the left AC w/o difficulty - labs drawn from line. tech obtained 2nd set of cultures from separate site. IV fluids/medications administered per provider order. respirations even and unlabored. call hutton placed within reach.
[2023-07-22] MEDS: Acetaminophen 325 MG TABLET 975 MG PO (18:05)
[2023-07-22 18:06] LABS: MANUAL DIFF FLAG NO
[2023-07-22] MEDS: cefTRIAXone sodium 1 GM in 0.9 % Sodium Chloride 50 ML IV (18:06)
[2023-07-22 18:10] LABS: Basophils Absolute Auto 0.1 X10*3/uL (0.0-0.2); Basophils Percent Auto 0.5 % (0-2); Eosinophils Absolute Auto 0.3 X10*3/uL (0.0-0.4); Eosinophils Percent Auto 2.1 % (0-4); Hematocrit 44.4 % (42.0-52.0); Hemoglobin 15.3 g/dl (14.0-18.0); Imm Gran Abs Auto 0.05 X10*3/uL (0.00-0.03); Imm Gran Pct Auto 0.3 % (0.0-0.4); Lymphocytes Absolute Auto 1.4 X10*3/uL (1.2-4.9); Lymphocytes Percent Auto 9.7 % (20-40); Mean Corpuscular HGB Conc 34.5 g/dl (31.0-36.0); Mean Corpuscular Hemoglobin 31.2 pg (27.0-33.0); Mean Corpuscular Volume 90.4 fL (80.0-98.0); Mean Platelet Volume 9.3 fL (9.4-12.4); Monocytes Percent Auto 6.7 % (2-11); Neutrophils Absolute Auto 11.8 x10*3/uL (2.0-8.3); Neutrophils Percent Auto 80.7 % (45-73); Platelet Count 230 X10*3/uL (160-400); Red Blood Count 4.91 X10*6/uL (4.60-5.80); White Blood Count 14.7 X10*3/uL (4.8-10.8)
[2023-07-22 18:20] LABS: COVID-19 Test Negative (Negative); IDNOW Serial# 08D9AD1C
[2023-07-22 18:22] LABS: IDNOW Serial# BCCEAD1C; Influenza A Negative (Negative); Influenza B2 Negative (Negative)
[2023-07-22 18:25] LABS: Lactic Acid 1.7 mmol/L (0.5-2.0)
[2023-07-22 18:32] LABS: Alanine Aminotransferase 24 U/L (0-40); Albumin Level 4.2 g/dL (3.5-5.0); Alkaline Phosphatase 101 U/L (39-117); Anion Gap 13 (12-20); Aspartate Amino Transferase 28 U/L (5-37); Bilirubin Total 0.6 mg/dL (0.0-1.0); Blood Urea Nitrogen 22 mg/dL (9-16); Calcium 10.1 mg/dL (8.4-10.2); Carbon Dioxide 25 mmol/L (22-29); Chloride 104 mmol/L (96-108); Creatinine Clr Calc Pharmacy 25.6; Estimated Glomerular Filt Rate 36; Glucose Random 173 mg/dL (60-115); Lipase 49 U/L (8-78); Magnesium 1.6 mg/dL (1.6-2.6); Potassium 4.6 mmol/L (3.3-5.1); Sodium 137 mmol/L (135-145)
[2023-07-22 18:37] LABS: B Type Natriuretic Peptide 24 pg/mL (<100)
[2023-07-22 18:39] LABS: Troponin-I High Sensitivity 6.4 ng/L (<3.5-35.0)
--- NOTE | 2023-07-22 18:56 | PC.NURSE ---
vitals up to date at this time. pt's oral temp decreased slightly post medication administration - will reassess again shortly. pt remains sinus tachy on the satellite project site monitor. IV fluids still hung and administering at this time. urine obtained/sent to lab. pt resting comfortably in no apparent distress. call hutton placed within reach.
[2023-07-22 19:02] LABS: Appearance Urine Cloudy; Color Urine Yellow; Glucose Urine UA Negative (Negative); Leukocyte Esterase Urine Small (1+) (Negative); Nitrite Urine Negative (Negative); PH 6.5 (5.0-9.0); Specific Gravity - Urine 1.015 (1.005-1.025); UMIC TRIGGER UACC YES; Urine Blood Trace (Negative); Urine Ketones Negative (Negative); Urine Protein 100 (2+) mg/dL (Neg-Trace)
[2023-07-22 19:07] LABS: Bacteria Urine 4+ (None Seen); Hyaline Casts Urine 0-2 /LPF (0-2); RBC Urine 0-2 /HPF (0-2); Squamous Epithelial Cell Urine 0-2 /HPF (0-2); UACC Culture Trigger YES; WBC Urine >50 /HPF (0-5)
--- NOTE | 2023-07-22 19:24 | PC.NURSE ---
pt's temperature continues to decrease at this time. remains sinus tachy on monitor. IV fluids still running. call hutton placed within reach.
--- NOTE | 2023-07-22 19:55 | P.HPHOSP_ITS ---
History of Present Illness Date of Service: 07/22/23 Chief Complaint: Fevers and chills This is a 82-year-old male with pertinent history of insulin-dependent diabetes mellitus, coronary artery disease, gastroesophageal reflux disease who presents to the emergency department for evaluation of fevers and chills. Patient states he started having chills about 3 days prior to presentation. Also had an episode of fever on the day of presentation. Denies dysuria but does have increased urinary frequency and hesitancy. No chest discomfort, cough, palpitations, abdominal pain, changes in urinary or bowel habits. No confusion as per the . Does have a history of UTIs. Also has associated fatigue and generalized weakness. In the emergency department, patient was found to be septic and urine concerning for acute UTI. Review of Systems 2 Constitutional: Constitutional: Reports chills, Reports fatigue, Reports fever(s) and Reports lethargy Cardiovascular: Cardiovascular: Reports no additional cardiovascular complaints Respiratory: Respiratory: Reports no additional respiratory complaints Gastrointestinal: Gastrointestinal: Reports no additional gastrointestinal complaints Genitourinary: Genitourinary: Reports urinary frequency and Reports urinary hesitancy Neurologic: Reports system reviewed and no additional complaints, except as documented Endocrine: Endocrine: Reports fatigue [facility] Medical History Gastroesophageal reflux disease Type 2 diabetes mellitus with unspecified complications Atherosclerotic cardiovascular disease Family History Father No problems noted. Mother No problems noted. Surgical History No pertinent past surgical history Social History Alcohol intake: never Patient Tobacco Use Status: Never used Tobacco Smoked in Last 30 Days: No Use of substances other than those prescribed or required for medical reasons: No Advance Directives: No Advance Directives Information Provided: No Nutrition Risks: No Nutritional Risk Meds Allergies Allergy/AdvReac Type Severity Reaction Status Date / Time No Known Allergies Allergy Mild NONE Verified 07/22/23 17:41 Home Medications Medication Instructions Recorded Confirmed Last Taken Type aspirin 81 mg tablet,delayed 81 mg PO DAILY 03/12/21 07/22/23 07/22/23 History release atorvastatin 80 mg tablet 80 mg PO DAILY 03/12/21 07/22/23 07/22/23 History metoprolol succinate 25 mg 25 mg PO QAM 03/12/21 07/22/23 07/22/23 History tablet,extended release 24 hr omeprazole 20 mg capsule,delayed 20 mg PO QAM 03/12/21 07/22/23 07/22/23 History release dapagliflozin propanediol 10 mg 10 mg PO QAM 05/13/22 07/22/23 07/22/23 History tablet (Farxiga) Physical Exam 2 Vital Signs and Narrative: Vital Signs: Last Vital Signs Temp 100.6 F H 07/22/23 19:24 Pulse 112 H 07/22/23 19:24 Resp 18 07/22/23 19:24 BP 133/80 07/22/23 19:24 Pulse Ox 96 07/22/23 19:24 O2 Del Method Room Air 07/22/23 19:24 BMI result Body Mass Index 26.1 Elderly male male lying in bed in no distress Neck supple, no JVD Regular rate and rhythm, S1-S2 heard Regular breath sounds bilaterally, no wheezing or crackles appreciated Abdomen soft nontender, no guarding, no rigidity Patient is awake, alert and oriented to self, place, time and person ; no focal motor deficit Psych: Normal mood No pedal edema Results Labs 07/22/23 17:59 07/22/23 17:59 Labs: Laboratory Results - last 24 hr 07/22/23 07/22/23 07/22/23 17:51 17:59 18:54 MCV 90.4 MCH 31.2 MCHC 34.5 RDW 13.0 Plt Count 230 MPV 9.3 L Immature Gran % (Auto) 0.3 Neut % (Auto) 80.7 H Lymph % (Auto) 9.7 L [place] % (Auto) 6.7 Eos % (Auto) 2.1 Baso % (Auto) 0.5 Lymph # (Auto) 1.4 [place] # (Auto) 1.0 Eos # (Auto) 0.3 Baso # (Auto) 0.1 Abs Immat Gran (auto) 0.05 H Absolute Neuts (auto) 11.8 H Absolute Nucleated RBC 0.000 Nucleated RBC % (auto) 0.0 Anion Gap 13 Estim Creat Clear Calc 25.6 Estimated GFR 36 Random Glucose 173 H Lactic Acid 1.7 Calcium 10.1 Magnesium 1.6 Total Bilirubin 0.6 AST 28 ALT 24 Alkaline Phosphatase 101 B-Natriuretic Peptide 24 Total Protein 9.0 H Albumin 4.2 Lipase 49 Urine Color Yellow Urine Appearance Cloudy Urine pH 6.5 Ur Specific [place] 1.015 Urine Protein 100 (2+) H Urine Glucose (UA) Negative Urine Ketones Negative Urine Blood Trace H Urine Nitrite Negative Ur Leukocyte Esterase Small (1+) H Urine RBC 0-2 Urine WBC >50 H Ur Squamous Epith Cells 0-2 Urine Bacteria 4+ Hyaline Casts 0-2 COVID-19 (EDY) Negative COVID-19 Clin Com See Note Influenza Type A (YELENA) Negative Influenza Type B (YELENA) Negative Influenza A & B Note See Note Assessment and Plan (1) Sepsis: Status: Acute (2) Acute UTI: Status: Acute Plan This is a 82-year-old male with pertinent history of insulin-dependent diabetes mellitus, coronary artery disease, gastroesophageal reflux disease who presents to the emergency department for evaluation of fevers and chills. #. Sepsis due to acute UTI: Resuscitated with IV crystalloids. Initiating empiric IV antibiotics. Blood culture and urine culture pending. Lactic acid obtained #. Insulin-dependent diabetes mellitus: Initiating basal plus insulin regimen. #. Gastroesophageal reflux disease: On PPI #. Coronary artery disease: On high-intensity statin and antiplatelet agent #. Chronic kidney disease: Creatinine at baseline. Monitor and avoid nephrotoxins DVT prophylaxis: Lovenox DNR/DNI. Discuss code status with patient at bedside Admit as inpatient and will require two night minimum hospital stay for IV antibiotics (as above), which is not possible in a lesser acute setting. Quality Stroke Does the patient have a stroke diagnosis?: No VTE Prior VTE?: No VTE Risk Level:: Medical - moderate - high VTE Device Contraindication: Treatment Not Indicated VTE Drug Contraindication: N/A - Med Ordered
[2023-07-22] MEDS: Enoxaparin Sodium 30 MG/0.3 ML SYRINGE SUBCUT (20:20)
--- NOTE | 2023-07-22 20:23 | PC.NURSE ---
medication administered per provider order. pt asking this RN about visiting hours for upstairs when he is admitted - information provided to pt and . pt states that he will not stay here if pt's is not allowed to sleep/spend the night upstairs with him. will notify provider.
[2023-07-22 21:09] LABS: Glucose, Whole Blood 164 mg/dL (60-115)
[2023-07-22] MEDS: Insulin Lispro 100 UNIT/ML 3 ML VIAL SUBCUT (21:26)
--- NOTE | 2023-07-22 21:26 | PC.NURSE ---
insulin administered per sliding scale.
--- NOTE | 2023-07-22 21:52 | PHA.MEDREC ---
Pharmacy Consult ? Medication Reconciliation Pharmacy has completed the medication reconciliation. Family member had list of medbox medications. Patient reported he does not take any injectable medications (insulin or Trulicity), he only takes pills. Elba Arce, PharmD
[2023-07-23 00:50] VITALS: BP 105/67; PULSE 94; RESP 22; TEMP 37; O2SAT 98
[2023-07-23] MEDS: 0.9 % Sodium Chloride Flush 3 ML SYRINGE IVFLUSH ×3 (05:22→17:45)
--- NOTE | 2023-07-23 05:25 | PC.NURSE ---
report given to receiving unit, YE Jarrell, Will prepare pt for transport. PCT Jeniffer also aware.
[2023-07-23 05:54] VITALS: BP 114/70; PULSE 98; RESP 20; TEMP 36.7; O2SAT 96
[2023-07-23 06:31] VITALS: BP 116/69; PULSE 97; RESP 18; TEMP 36.7; O2SAT 98
[2023-07-23 07:06] LABS: Basophils Absolute Auto 0.1 X10*3/uL (0.0-0.2); Basophils Percent Auto 0.4 % (0-2); Eosinophils Percent Auto 0.1 % (0-4); Hematocrit 43.2 % (42.0-52.0); Hemoglobin 14.9 g/dl (14.0-18.0); Imm Gran Abs Auto 0.14 X10*3/uL (0.00-0.03); Imm Gran Pct Auto 0.6 % (0.0-0.4); Lymphocytes Absolute Auto 3.2 X10*3/uL (1.2-4.9); Lymphocytes Percent Auto 13.8 % (20-40); MANUAL DIFF FLAG SCAN; Mean Corpuscular HGB Conc 34.5 g/dl (31.0-36.0); Mean Corpuscular Hemoglobin 30.9 pg (27.0-33.0); Mean Corpuscular Volume 89.6 fL (80.0-98.0); Mean Platelet Volume 8.8 fL (9.4-12.4); Monocytes Absolute Auto 1.9 X10*3/uL (0.1-1.2); Neutrophils Percent Auto 77.1 % (45-73); Platelet Count 208 X10*3/uL (160-400); Red Blood Count 4.82 X10*6/uL (4.60-5.80); Red Cell Distribution Width 13.2 % (11.0-16.0); SCAN SMEAR FLAG 1; White Blood Count 23.3 X10*3/uL (4.8-10.8)
[2023-07-23 07:26] LABS: SLIDE REVIEW VERIFIED
[2023-07-23 07:29] LABS: Anion Gap 12 (12-20); Blood Urea Nitrogen 22 mg/dL (9-16); Calcium 8.5 mg/dL (8.4-10.2); Carbon Dioxide 25 mmol/L (22-29); Chloride 107 mmol/L (96-108); Creatinine Clr Calc Pharmacy 28.2; Estimated Glomerular Filt Rate 40; Glucose Random 148 mg/dL (60-115); Potassium 4.7 mmol/L (3.3-5.1); Sodium 139 mmol/L (135-145)
[2023-07-23 07:31] LABS: Glucose, Whole Blood 141 mg/dL (60-115)
[2023-07-23 07:37] VITALS: BP 122/71; PULSE 95; RESP 18; TEMP 36.1; O2SAT 97
[2023-07-23] MEDS: Omeprazole 20 MG CAPSULE.DR PO (08:45)
[2023-07-23] MEDS: Atorvastatin Calcium 80 MG TABLET PO (08:45)
[2023-07-23] MEDS: Aspirin Enteric Coated 81 MG TABLET.DR PO (08:45)
[2023-07-23] MEDS: Empagliflozin 10 MG TABLET PO (08:45)
--- NOTE | 2023-07-23 09:38 | MHC.CM.PN ---
IMM 07/23/23, CM met with pt. via an metal patternmaker apprentice, pt. lives with , in an elderly apt. building. His Dtr. is his HCP, form given to compete here and put in chart. Pt. has a nurse that visits her once every few months from [facility], and no other home health services. For medical equipment, he has a cane, and diabetic supplies that he gets from [facility]. His Dtr will bring him home upon DC. CM will follow and assist with DC planning.
[2023-07-23 11:44] LABS: Glucose, Whole Blood 122 mg/dL (60-115)
--- NOTE | 2023-07-23 13:13 | HO.PM.IMPN ---
Subjective Subjective Date of Service: 07/23/23 Interval History: seen and examined this morning history obtained with the assistance of a ship rigger patient feeling much better since arrival, no current chills or fever denies abdominal pain, dysuria Review of Systems Review of Systems: Yes all other systems are reviewed and are negative Constitutional Constitutional: Denies chills and Denies fever(s) Cardiovascular Cardiovascular: Denies chest pain and Denies palpitations Endocrine Endocrine: Denies palpitations Physical Exam Vital Signs: Vital Signs: Last Vital Signs Temp 97.0 F 07/23/23 07:37 Pulse 95 07/23/23 07:37 Resp 18 07/23/23 07:37 BP 122/71 07/23/23 07:37 Pulse Ox 97 07/23/23 07:37 O2 Del Method Room Air 07/23/23 07:37 BMI result Body Mass Index 26.1 Const: General: cooperative, comfortable, no acute distress, alert and awake Nutritional Appearance: average body habitus Orientation/consciousness: patient oriented x3 Resp: Effort & Inspection: normal respiratory effort, able to speak in complete sentences, no respiratory distress and no use of accessory muscles Cardio: Rate: regular rate GI: Inspection: No distended Palpation (GI): Soft to palpation and nontender Neuro: General: patient oriented x3, moves all extremities and CN's II-XI intact bilaterally Extrem: General: Yes no pedal edema Objective Data Active Medications Acetaminophen (Acetaminophen 325 Mg Tablet) 650 mg PO Q6H PRN PRN Reason: Pain, Mild (Pain Scale 1-3) Aspirin (Aspirin Enteric Coated 81 Mg Tablet.) 81 mg PO DAILY COUNTS INCLUDE 234 BEDS AT THE [facility] Last Admin: 07/23/23 08:45 Dose: 81 mg Documented By: SHAYNA Atorvastatin Calcium (Atorvastatin Calcium 80 Mg Tablet) 80 mg PO DAILY COUNTS INCLUDE 234 BEDS AT THE [facility] Last Admin: 07/23/23 08:45 Dose: 80 mg Documented By: SHAYNA Dextrose (Dextrose 50 % 25 Gm/50 Ml Syringe) 25 gm IVPUSH Q15M PRN; Protocol PRN Reason: per Hypoglycemia Standing Ord. Empagliflozin (Empagliflozin 10 Mg Tablet) 10 mg PO DAILY COUNTS INCLUDE 234 BEDS AT THE [facility] Last Admin: 07/23/23 08:45 Dose: 10 mg Documented By: SHAYNA Enoxaparin Sodium (Enoxaparin Sodium 30 Mg/0.3 Ml Syringe) 30 mg SUBCUT Q24H COUNTS INCLUDE 234 BEDS AT THE [facility] Last Admin: 07/22/23 20:20 Dose: 30 mg Documented By: SHAYY Glucose (Glucose Gel 15 Gm Gel..Gram.) 15 gm PO Q15M PRN; Protocol PRN Reason: per Hypoglycemia Standing Ord. Ceftriaxone Sodium 1 gm/ (Sodium Chloride) 50 mls @ 100 mls/hr IV Q24H COUNTS INCLUDE 234 BEDS AT THE [facility] Insulin Human Lispro (Insulin Lispro 100 Unit/Ml 3 Ml Vial) 0 unit SUBCUT QIDACHS COUNTS INCLUDE 234 BEDS AT THE [facility]; Protocol Last Admin: 07/23/23 11:44 Dose: Not Given Documented By: SHAYNA Non-Admin Reason: No Insulin Coverage Melatonin (Melatonin 3 Mg Tablet) 6 mg PO BEDTIME PRN PRN Reason: Insomnia Omeprazole (Omeprazole 20 Mg Capsule.) 20 mg PO DAILY@0630 COUNTS INCLUDE 234 BEDS AT THE [facility] Last Admin: 07/23/23 08:45 Dose: 20 mg Documented By: SHAYNA Ondansetron HCl (Ondansetron Hcl 4 Mg/2 Ml Vial) 4 mg IVPUSH Q8H PRN PRN Reason: Nausea and Vomiting Sodium Chloride (0.9 % Sodium Chloride Flush 3 Ml Syringe) 3 ml IVFLUSH QSHIFT COUNTS INCLUDE 234 BEDS AT THE [facility] Last Admin: 07/23/23 08:45 Dose: 3 ml Documented By: SHAYNA Labs 07/23/23 06:59 07/23/23 06:59 Labs: Laboratory Results - last 24 hr 07/22/23 07/22/23 07/22/23 17:51 17:59 18:54 MCV 90.4 MCH 31.2 MCHC 34.5 RDW 13.0 Plt Count 230 MPV 9.3 L Immature Gran % (Auto) 0.3 Neut % (Auto) 80.7 H Lymph % (Auto) 9.7 L [place] % (Auto) 6.7 Eos % (Auto) 2.1 Baso % (Auto) 0.5 Lymph # (Auto) 1.4 [place] # (Auto) 1.0 Eos # (Auto) 0.3 Baso # (Auto) 0.1 Abs Immat Gran (auto) 0.05 H Absolute Neuts (auto) 11.8 H Absolute Nucleated RBC 0.000 Nucleated RBC % (auto) 0.0 Smear Tech's Comments Anion Gap 13 Estim Creat Clear Calc 25.6 Estimated GFR 36 POC Glucose Random Glucose 173 H Lactic Acid 1.7 Calcium 10.1 Magnesium 1.6 Total Bilirubin 0.6 AST 28 ALT 24 Alkaline Phosphatase 101 B-Natriuretic Peptide 24 Total Protein 9.0 H Albumin 4.2 Lipase 49 Urine Color Yellow Urine Appearance Cloudy Urine pH 6.5 Ur Specific [place] 1.015 Urine Protein 100 (2+) H Urine Glucose (UA) Negative Urine Ketones Negative Urine Blood Trace H Urine Nitrite Negative Ur Leukocyte Esterase Small (1+) H Urine RBC 0-2 Urine WBC >50 H Ur Squamous Epith Cells 0-2 Urine Bacteria 4+ Hyaline Casts 0-2 COVID-19 (EDY) Negative COVID-19 Clin Com See Note Influenza Type A (YELENA) Negative Influenza Type B (YELENA) Negative Influenza A & B Note See Note 07/22/23 07/23/23 07/23/23 21:01 06:59 07:27 MCV 89.6 MCH 30.9 MCHC 34.5 RDW 13.2 Plt Count 208 MPV 8.8 L Immature Gran % (Auto) 0.6 H Neut % (Auto) 77.1 H Lymph % (Auto) 13.8 L [place] % (Auto) 8.0 Eos % (Auto) 0.1 Baso % (Auto) 0.4 Lymph # (Auto) 3.2 [place] # (Auto) 1.9 H Eos # (Auto) 0.0 Baso # (Auto) 0.1 Abs Immat Gran (auto) 0.14 H Absolute Neuts (auto) 18.0 H Absolute Nucleated RBC 0.000 Nucleated RBC % (auto) 0.0 Smear Tech's Comments VERIFIED Anion Gap 12 Estim Creat Clear Calc 28.2 Estimated GFR 40 POC Glucose 164 H 141 H Random Glucose 148 H Lactic Acid Calcium 8.5 D Magnesium Total Bilirubin AST ALT Alkaline Phosphatase B-Natriuretic Peptide Total Protein Albumin Lipase Urine Color Urine Appearance Urine pH Ur Specific [place] Urine Protein Urine Glucose (UA) Urine Ketones Urine Blood Urine Nitrite Ur Leukocyte Esterase Urine RBC Urine WBC Ur Squamous Epith Cells Urine Bacteria Hyaline Casts COVID-19 (EDY) COVID-19 Clin Com Influenza Type A (YELENA) Influenza Type B (YELENA) Influenza A & B Note 07/23/23 11:20 MCV MCH MCHC RDW Plt Count MPV Immature Gran % (Auto) Neut % (Auto) Lymph % (Auto) [place] % (Auto) Eos % (Auto) Baso % (Auto) Lymph # (Auto) [place] # (Auto) Eos # (Auto) Baso # (Auto) Abs Immat Gran (auto) Absolute Neuts (auto) Absolute Nucleated RBC Nucleated RBC % (auto) Smear Tech's Comments Anion Gap Estim Creat Clear Calc Estimated GFR POC Glucose 122 H Random Glucose Lactic Acid Calcium Magnesium Total Bilirubin AST ALT Alkaline Phosphatase B-Natriuretic Peptide Total Protein Albumin Lipase Urine Color Urine Appearance Urine pH Ur Specific [place] Urine Protein Urine Glucose (UA) Urine Ketones Urine Blood Urine Nitrite Ur Leukocyte Esterase Urine RBC Urine WBC Ur Squamous Epith Cells Urine Bacteria Hyaline Casts COVID-19 (EDY) COVID-19 Clin Com Influenza Type A (YELENA) Influenza Type B (YELENA) Influenza A & B Note Microbiology Microbiology Results: Microbiology 07/22/23 19:21 Urine Culture - Preliminary Urine clean catch - Urine guzman top Gram negative shilo Assessment and Plan (1) Sepsis: Status: Acute (2) Acute UTI: Status: Acute Plan This is a 82-year-old male with pertinent history of insulin-dependent diabetes mellitus, coronary artery disease, gastroesophageal reflux disease who presents to the emergency department for evaluation of fevers and chills. #. Sepsis due to acute UTI: wbc trending up but pt now afebrile and feeling better urine culture growing GNR - follow final results blood cultures pending continue IV ceftriaxone for now #. Insulin-dependent diabetes mellitus: hold glipizide, continue Jardiance (home farxiga) Continue SSI, follow POCs #. Gastroesophageal reflux disease: continue PPI #. Coronary artery disease: continue BB, statin and aspirin #. Chronic kidney disease: Creatinine at baseline. Monitor and avoid nephrotoxins DVT prophylaxis: Lovenox DNR/DNI. attending - dr. mobley Requires ongoing hospital stay for IV antibiotics (as above), which is not possible in a lesser acute setting Quality Stroke Does the patient have a stroke diagnosis?: No VTE Prior VTE?: No VTE Risk Level:: Medical - moderate - high VTE Device Contraindication: Treatment Not Indicated VTE Drug Contraindication: N/A - Med Ordered
--- NOTE | 2023-07-23 14:21 | MHC.CM.PN ---
EMR reviewed and per MD rounds, pt is not medically cleared for D/C due to sepsis requiring IV abx, and pending cultures. CM will continue to follow.
[2023-07-23 16:00] VITALS: BP 121/70; PULSE 95; RESP 18; TEMP 35.7; O2SAT 96
[2023-07-23 17:09] LABS: Glucose, Whole Blood 130 mg/dL (60-115)
[2023-07-23] MEDS: Metoprolol Succinate ER 25 MG TAB.ER.24H PO (17:44)
[2023-07-23] MEDS: cefTRIAXone sodium 1 GM in 0.9 % Sodium Chloride 50 ML IV (17:44)
[2023-07-23 20:00] VITALS: BP 132/77; PULSE 93; RESP 18; TEMP 35.9; O2SAT 97
[2023-07-23 21:05] LABS: Glucose, Whole Blood 143 mg/dL (60-115)
[2023-07-23] MEDS: Enoxaparin Sodium 30 MG/0.3 ML SYRINGE SUBCUT (21:59)
[2023-07-24 03:59] VITALS: BP 130/78; PULSE 94; RESP 17; TEMP 36.7; O2SAT 94
[2023-07-24] MEDS: Omeprazole 20 MG CAPSULE.DR PO (05:55)
[2023-07-24 06:08] LABS: MANUAL DIFF FLAG NO
[2023-07-24 06:15] LABS: Basophils Absolute Auto 0.1 X10*3/uL (0.0-0.2); Basophils Percent Auto 0.6 % (0-2); Eosinophils Absolute Auto 0.4 X10*3/uL (0.0-0.4); Eosinophils Percent Auto 2.2 % (0-4); Hematocrit 45.2 % (42.0-52.0); Hemoglobin 15.5 g/dl (14.0-18.0); Imm Gran Abs Auto 0.12 X10*3/uL (0.00-0.03); Imm Gran Pct Auto 0.6 % (0.0-0.4); Lymphocytes Absolute Auto 4.5 X10*3/uL (1.2-4.9); Lymphocytes Percent Auto 23.3 % (20-40); Mean Corpuscular HGB Conc 34.3 g/dl (31.0-36.0); Mean Corpuscular Hemoglobin 30.6 pg (27.0-33.0); Mean Corpuscular Volume 89.3 fL (80.0-98.0); Mean Platelet Volume 9.4 fL (9.4-12.4); Monocytes Absolute Auto 1.3 X10*3/uL (0.1-1.2); Monocytes Percent Auto 6.8 % (2-11); Neutrophils Absolute Auto 12.8 x10*3/uL (2.0-8.3); Neutrophils Percent Auto 66.5 % (45-73); Platelet Count 228 X10*3/uL (160-400); Red Blood Count 5.06 X10*6/uL (4.60-5.80); Red Cell Distribution Width 13.3 % (11.0-16.0); White Blood Count 19.3 X10*3/uL (4.8-10.8)
[2023-07-24 06:29] LABS: Anion Gap 13 (12-20); Blood Urea Nitrogen 23 mg/dL (9-16); Calcium 9.9 mg/dL (8.4-10.2); Carbon Dioxide 22 mmol/L (22-29); Chloride 105 mmol/L (96-108); Creatinine Clr Calc Pharmacy 24.9; Estimated Glomerular Filt Rate 35; Glucose Random 127 mg/dL (60-115); Potassium 4.2 mmol/L (3.3-5.1); Sodium 136 mmol/L (135-145)
[2023-07-24 07:14] VITALS: BP 130/80; PULSE 94; RESP 18; TEMP 36.3; O2SAT 96
[2023-07-24 07:41] LABS: Glucose, Whole Blood 126 mg/dL (60-115)
[2023-07-24 11:18] VITALS: BP 146/83; PULSE 96; RESP 18; TEMP 36.5; O2SAT 96
[2023-07-24] MEDS: Atorvastatin Calcium 80 MG TABLET PO (11:24)
[2023-07-24] MEDS: 0.9 % Sodium Chloride Flush 3 ML SYRINGE IVFLUSH (11:24)
[2023-07-24] MEDS: Aspirin Enteric Coated 81 MG TABLET.DR PO (11:24)
[2023-07-24] MEDS: Metoprolol Succinate ER 25 MG TAB.ER.24H PO (11:24)
[2023-07-24] MEDS: Empagliflozin 10 MG TABLET PO (11:24)
--- NOTE | 2023-07-24 11:49 | PM.DS ---
DS: Providers Provider Date of Service: 07/24/23 Date of admission: 07/22/23 19:50 Date of discharge: 07/24/23 Primary care physician: Unknown Physician Attending physician on discharge: Meri Navarro Discharging clinician: Jacklyn Bobo DS: Diagnosis Discharge Diagnosis (1) Sepsis: Status: Acute (2) Acute UTI: Status: Acute DS: Summary Hospital Course Hospital Course: From H&P on day of admission This is a 82-year-old male with pertinent history of insulin-dependent diabetes mellitus, coronary artery disease, gastroesophageal reflux disease who presents to the emergency department for evaluation of fevers and chills. Patient states he started having chills about 3 days prior to presentation. Also had an episode of fever on the day of presentation. Denies dysuria but does have increased urinary frequency and hesitancy. No chest discomfort, cough, palpitations, abdominal pain, changes in urinary or bowel habits. No confusion as per the . Does have a history of UTIs. Also has associated fatigue and generalized weakness. In the emergency department, patient was found to be septic and urine concerning for acute UTI. Sepsis due to acute UTI: Patient did meet sepsis criteria on admission. Since admission wbc is trending down, patient has remained afebrile and feeling better. urine culture growing pansensitive e.coli. He was treated with IV ceftriaxone. Blood cultures have remained negative. Will discharge to complete course of oral antibiotics. No changes made to chronic medications Time Attestation Discharge coordination time: Greater than 30 minutes Quality: Safe Use of Opioids Does Pt have an Active Cancer Diagnosis on the Problem List?: No Quality: Stroke Does the patient have a stroke diagnosis?: No Physical Exam Vital Signs: Vital Signs: Last Vital Signs Temp 97.7 F 07/24/23 11:18 Pulse 96 07/24/23 11:18 Resp 18 07/24/23 11:18 BP 146/83 H 07/24/23 11:18 Pulse Ox 96 07/24/23 11:18 O2 Del Method Room Air 07/24/23 11:18 BMI result Body Mass Index 26.1 Const: General: cooperative, comfortable, no acute distress, alert and awake Nutritional Appearance: average body habitus Orientation/consciousness: patient oriented x3 Resp: Effort & Inspection: normal respiratory effort, able to speak in complete sentences, no respiratory distress and no use of accessory muscles Cardio: Rate: regular rate GI: Inspection: No distended Palpation (GI): Soft to palpation and nontender Neuro: General: patient oriented x3, moves all extremities and CN's II-XI intact bilaterally Extrem: General: Yes no pedal edema DS: Data Data Completed and Pending Labs on day of discharge: Laboratory Results - last 24 hr 07/23/23 07/23/23 07/24/23 16:44 20:56 05:59 WBC 19.3 H RBC 5.06 Hgb 15.5 Hct 45.2 MCV 89.3 MCH 30.6 MCHC 34.3 RDW 13.3 Plt Count 228 MPV 9.4 Immature Gran % (Auto) 0.6 H Neut % (Auto) 66.5 Lymph % (Auto) 23.3 [place] % (Auto) 6.8 Eos % (Auto) 2.2 Baso % (Auto) 0.6 Lymph # (Auto) 4.5 [place] # (Auto) 1.3 H Eos # (Auto) 0.4 Baso # (Auto) 0.1 Abs Immat Gran (auto) 0.12 H Absolute Neuts (auto) 12.8 H Absolute Nucleated RBC 0.000 Nucleated RBC % (auto) 0.0 Sodium 136 Potassium 4.2 Chloride 105 Carbon Dioxide 22 Anion Gap 13 BUN 23 H Creatinine 1.87 H Estim Creat Clear Calc 24.9 Estimated GFR 35 POC Glucose 130 H 143 H Random Glucose 127 H Calcium 9.9 D 07/24/23 07:29 WBC RBC Hgb Hct MCV MCH MCHC RDW Plt Count MPV Immature Gran % (Auto) Neut % (Auto) Lymph % (Auto) [place] % (Auto) Eos % (Auto) Baso % (Auto) Lymph # (Auto) [place] # (Auto) Eos # (Auto) Baso # (Auto) Abs Immat Gran (auto) Absolute Neuts (auto) Absolute Nucleated RBC Nucleated RBC % (auto) Sodium Potassium Chloride Carbon Dioxide Anion Gap BUN Creatinine Estim Creat Clear Calc Estimated GFR POC Glucose 126 H Random Glucose Calcium Preliminary micro results at discharge 07/22/23 17:59 Blood Culture - Preliminary Blood - Venous No growth after 24 hours. 07/22/23 17:59 Blood Culture - Preliminary Blood - Venous No growth after 24 hours. Discharge Plan Discharge Anticipated Discharge Date/Time: 07/24/23 12:00 Patient Disposition: Home, Self-Care Discharge Diagnosis: sepsis due to UTI Referrals: Physician,Unknown J [Primary Care Provider] - 1 Week Discharge Medications: New cefuroxime axetil 250 mg tablet 250 mg PO BID 5 Days Qty: 10 0RF Continued glipizide 5 mg tablet 5 mg PO BID Qty: 60 0RF metoprolol succinate 25 mg tablet extended release 24 hr 25 mg PO QAM omeprazole 20 mg capsule,delayed release(DR/EC) 20 mg PO QAM aspirin 81 mg tablet,delayed release (DR/EC) 81 mg PO DAILY atorvastatin 80 mg tablet 80 mg PO DAILY Farxiga 10 mg tablet 10 mg PO QAM Discharge Orders: Discharge Order (Routine); Ordered 07/24/23 Ordered By: Jacklyn Bobo Activity on Discharge: As tolerated Stand Alone Forms: Patient Portal Discharge page Care Plan Goals: resolution of infection Health Concerns: sepsis due to UTI Plan of Treatment: complete course of antibiotics call to schedule follow up with PCP as needed Assessment: see discharge summary
--- NOTE | 2023-07-24 12:05 | MHC.CM.PN ---
IMM 07/23/23 Patient discharged to home self care. Pt arranged for transport home.
[2023-07-24 12:06] LABS: Glucose, Whole Blood 151 mg/dL (60-115)
[2023-07-24] MEDS: Insulin Lispro 100 UNIT/ML 3 ML VIAL SUBCUT (12:07)
== END 2023-07-24 13:20 | disposition home or self-care (01) | DRG 872 ==
LOC: HO.ED 19:08 → HO.EDOVER 20:02 → HO.IMC 23:27 → HO.S3 07-24 10:16
PROVIDERS: Nurse Practitioner Family; Admitting Provider Student in an Organized Health Care Education/Training Program; Emergency Provider Emergency Medicine; PCP Student in an Organized Health Care Education/Training Program; Visit Provider Physician Assistant Medical
DX: A41.9 Sepsis, unspecified organism (principal); N39.0 Urinary tract infection, site not specified; K21.9 Gastro-esophageal reflux disease without esophagitis; Z66 Do not resuscitate; I25.10 Atherosclerotic heart disease of native coronary artery without angina pectoris; B96.20 Unspecified Escherichia coli [E. coli] as the cause of diseases classified elsewhere; N18.30 Chronic kidney disease, stage 3 unspecified; E11.22 Type 2 diabetes mellitus with diabetic chronic kidney disease; I25.2 Old myocardial infarction; Z20.822 Contact with and (suspected) exposure to COVID-19; Z79.82 Long term (current) use of aspirin; Z79.84 Long term (current) use of oral hypoglycemic drugs; Z79.899 Other long term (current) drug therapy
CPT/HCPCS: 36415; 71046; 80048; 80053; 81001; 81003; 82947; 83605; 83690; 83735; 83880; 84484; 85025; 87040; 87086; 87088; 87186; 87502; 87635; 93005; 99285; J0696; J1650

== ENCOUNTER → 2023-07-22 19:50 | Outpatient (BNV) | payer MEDICARE, SELFPAY | PROVIDERS: Admitting Provider Student in an Organized Health Care Education/Training Program; Emergency Provider Emergency Medicine; Visit Provider Student in an Organized Health Care Education/Training Program | DX: A41.9 Sepsis, unspecified organism (principal); N39.0 Urinary tract infection, site not specified | CPT/HCPCS: 99222; 99232; 99239 ==

== ENCOUNTER 2023-08-18 10:21 | Outpatient (REF) | payer OTHER, SELFPAY ==
[2023-08-18 11:34] LABS: Appearance Urine Clear; Color Urine Yellow; Glucose Urine UA 250 mg/dL (Negative); Leukocyte Esterase Urine Negative (Negative); Nitrite Urine Negative (Negative); UMIC TRIGGER UACC YES; Urine Blood Negative (Negative); Urine Ketones Negative (Negative); Urine Protein 30 (1+) mg/dL (Neg-Trace)
[2023-08-18 11:40] LABS: Bacteria Urine None Seen (None Seen); Hyaline Casts Urine 0-2 /LPF (0-2); RBC Urine 0-2 /HPF (0-2); Squamous Epithelial Cell Urine 0-2 /HPF (0-2); WBC Urine 0-5 /HPF (0-5)
== END 2023-08-18 10:22 | disposition home or self-care (01) ==
LOC: HO.HHCL 10:21
PROVIDERS: Visit Provider General Practice
DX: N18.31 Chronic kidney disease, stage 3a (principal)
CPT/HCPCS: 81001

== ENCOUNTER 2023-12-29 06:16 | Outpatient (REF) | payer OTHER, SELFPAY ==
[2023-12-29 06:36] LABS: MANUAL DIFF FLAG NO
[2023-12-29 08:26] LABS: Basophils Absolute Auto 0.1 X10*3/uL (0.0-0.2); Basophils Percent Auto 0.9 % (0-2); Eosinophils Absolute Auto 1.8 X10*3/uL (0.0-0.4); Eosinophils Percent Auto 18.2 % (0-4); Hematocrit 43.9 % (42.0-52.0); Imm Gran Abs Auto 0.02 X10*3/uL (0.00-0.03); Imm Gran Pct Auto 0.2 % (0.0-0.4); Lymphocytes Absolute Auto 4.2 X10*3/uL (1.2-4.9); Lymphocytes Percent Auto 43.1 % (20-40); Mean Corpuscular HGB Conc 34.2 g/dl (31.0-36.0); Mean Corpuscular Hemoglobin 30.7 pg (27.0-33.0); Mean Platelet Volume 10.3 fL (9.4-12.4); Monocytes Absolute Auto 0.9 X10*3/uL (0.1-1.2); Monocytes Percent Auto 8.6 % (2-11); Neutrophils Absolute Auto 2.9 x10*3/uL (2.0-8.3); Platelet Count 235 X10*3/uL (160-400); Red Blood Count 4.88 X10*6/uL (4.60-5.80); Red Cell Distribution Width 12.8 % (11.0-16.0); White Blood Count 9.8 X10*3/uL (4.8-10.8)
[2023-12-29 08:28] LABS: Appearance Urine Clear; Color Urine Yellow; Glucose Urine UA >=1000 mg/dL (Negative); Leukocyte Esterase Urine Negative (Negative); Nitrite Urine Negative (Negative); PH 5.5 (5.0-9.0); UMIC TRIGGER UA YES; Urine Blood Negative (Negative); Urine Ketones Negative (Negative); Urine Protein 30 (1+) mg/dL (Neg-Trace)
[2023-12-29 08:33] LABS: Bacteria Urine None Seen (None Seen); Hyaline Casts Urine 0-2 /LPF (0-2); RBC Urine 0-2 /HPF (0-2); Squamous Epithelial Cell Urine 0-2 /HPF (0-2); WBC Urine 0-5 /HPF (0-5)
[2023-12-29 08:58] LABS: Protein/Creatinine Ratio, Ur 0.38 (<0.2); Total Protein Urine Random 40 mg/dL (<12)
[2023-12-29 09:03] LABS: Albumin Level 4.1 g/dL (3.5-5.0); Anion Gap 11 (12-20); Blood Urea Nitrogen 22 mg/dL (9-16); Calcium 9.6 mg/dL (8.4-10.2); Carbon Dioxide 25 mmol/L (22-29); Chloride 103 mmol/L (96-108); Estimated Glomerular Filt Rate 39; Phosphorus 2.1 mg/dL (2.7-4.5); Sodium 135 mmol/L (135-145)
[2023-12-29 09:22] LABS: Vitamin D 25-OH Total 23.5 ng/mL (>30)
[2023-12-29 10:22] LABS: Parathyroid Hormone Intact 138.3 pg/mL (8.7-77.1)
== END 2023-12-29 06:17 | disposition home or self-care (01) ==
LOC: HO.LAB 06:16
PROVIDERS: Visit Provider Internal Medicine Nephrology
DX: E11.22 Type 2 diabetes mellitus with diabetic chronic kidney disease (principal); N18.32 Chronic kidney disease, stage 3b
CPT/HCPCS: 36415; 80051; 81001; 82040; 82306; 82310; 82565; 82570; 83735; 83970; 84100; 84156; 84520; 85025

== ENCOUNTER 2024-05-15 08:37 | Outpatient (AMB) | payer OTHER, SELFPAY ==
--- NOTE | 2024-05-15 08:49 | MHC.OFFVIS ---
Vital Signs 05/15/24 09:00 Weight 139 lb BP 133/76 Blood Pressure Location Lt brachial Position Sitting Pulse 80 Intake Visit Reasons: sebaceous cyst chest Intake Note: Patient referred by Dr. Mosley for cyst on mid chest. Patient c/o: reports itchiness, reports no pain. Vp Business [employer] Required: No Accompanied by: Daughter Allergies No Known Allergies Allergy (Mild, Verified 05/15/24 08:58) NONE HPI Comments Details: Patient presents with a family member for evaluation of a symptomatic anterior chest wall recurrent sebaceous cyst. He had this excised several years ago. It has apparently recurred and is symptomatic. His increasing in size as well and he would like to have removed. Chart was reviewed and patient evaluated [facility] Medical History Renal osteodystrophy Stage 3 chronic kidney disease Coronary atherosclerosis Essential hypertension Mixed hyperlipidemia Mild nonproliferative diabetic retinopathy Benign prostatic hyperplasia Gastroesophageal reflux disease Type 2 diabetes mellitus with unspecified complications Atherosclerotic cardiovascular disease Surgical History No pertinent past surgical history Family History Father No problems noted. Mother No problems noted. Social History Household Members: Family Housing: Apartment Alcohol intake: never Patient Tobacco Use Status: Never used Tobacco service: No Physical Exam Vital Signs: Last Vital Signs Pulse 80 05/15/24 09:00 BP 133/76 05/15/24 09:00 Chest Other: Roughly 3 x 2 cm recurrent mid anterior chest wall sebaceous cyst. Office Procedures Excision Details: Risks, benefits, alternatives of excision of recurrent sebaceous cyst reviewed with the patient which included but not limited to bleeding, infection, recurrence, numbness, pain, scarring, wound dehiscence, seroma formation the patient wished to proceed. All questions answered. Consent signed. After appropriate positioning, patient underwent 1% lidocaine and Betadine prep and roughly 3 x 2 cm anterior chest wall sebaceous cyst was excised with a by elliptical incision undermined and sent to pathology. Wound was irrigated, secured hemostasis, and closed using running subcuticular 3-0 Vicryl suture followed by Steri-Strips and sterile dressings. Patient tolerated procedure well. 11570-yhvrk/arms/legs 2.1-3cm Procedure code (CPT) selection complete Office Meds lidocaine 1 %-epinephrine 1:100,000 injection solution Performing Provider: Jalen Cervantes MD Performing Location: [facility] [place] [facility] Administered by: Jalen Cervantes MD on 05/15/24 09:41 Dose Route Admin Location Dispensed Lot Number Expiration Date [facility] [employer] 10 mL Infiltration 10 mL Assessment & Plan Assessment & Plan (1) Sebaceous cyst: Code(s): L72.3 - Sebaceous cyst Category: Surgical Plan: Patient was been given local instructions including Tylenol or Motrin for pain relief, ice to the wound periodically, may shower in 2 days leaving Steri-Str alone, and no strenuous activities for next 1-2 weeks time. Patient will see me as directed or p.r.n.. Orders: Orders AMB Excision Today L72.3 - Sebaceous cyst Medications: New lidocaine-epinephrine 1 %-1:100,000 10 mL Infiltration ONCE 30 mL 0RF L72.3 - Sebaceous cyst Coding Level of Care Code New Pt Level 5 (51971) Diagnoses Sebaceous cyst L72.3 CPT Codes Trunk/Arms/Legs - CPT: 45002-fnvhg/arms/legs 2.1-3cm ([id number])
[2024-05-15 09:00] VITALS: BP 133/76; PULSE 80
== END 2024-05-15 09:20 | disposition home or self-care (01) ==
PROVIDERS: PCP Student in an Organized Health Care Education/Training Program; Visit Provider Surgery
DX: L72.0 Epidermal cyst (principal)
CPT/HCPCS: 11403; 99204

== ENCOUNTER 2024-05-15 08:37 | Outpatient (REF) | payer OTHER, SELFPAY | END 2024-05-15 08:38 | disposition home or self-care (01) | LOC: HO.LNP 08:37 | PROVIDERS: PCP Student in an Organized Health Care Education/Training Program; Visit Provider Surgery | DX: L72.3 Sebaceous cyst (principal) | CPT/HCPCS: 11403; 88304; 99202 ==

== ENCOUNTER 2024-05-16 08:17 | Outpatient (REF) | payer OTHER, SELFPAY ==
[2024-05-16 11:44] LABS: Alanine Aminotransferase 37 U/L (0-40); Albumin Level 4.1 g/dL (3.5-5.0); Alkaline Phosphatase 78 U/L (39-117); Aspartate Amino Transferase 38 U/L (5-37); Bilirubin Direct 0.3 mg/dL (0.0-0.5); Bilirubin Total 0.6 mg/dL (0.0-1.0); Cholesterol 143 mg/dL (<200); HDL Cholesterol 32 mg/dL (>40); LDL Cholesterol Calculated 82 mg/dL (<100); Total Protein 8.8 g/dL (6.5-8.0); Triglycerides 148 mg/dL (<150)
[2024-05-16 12:57] LABS: Reflex LDLD? No
== END 2024-05-16 08:18 | disposition home or self-care (01) ==
LOC: HO.HHCL 08:17
PROVIDERS: Visit Provider Internal Medicine
DX: I12.9 Hypertensive chronic kidney disease with stage 1 through stage 4 chronic kidney disease, or unspecified chronic kidney disease (principal); E11.22 Type 2 diabetes mellitus with diabetic chronic kidney disease; N18.32 Chronic kidney disease, stage 3b; Z79.4 Long term (current) use of insulin; E78.2 Mixed hyperlipidemia
CPT/HCPCS: 36415; 80061; 80076

== ENCOUNTER 2024-05-19 12:33 | Outpatient (AMB) | payer MEDICARE, SELFPAY ==
--- NOTE | 2024-05-19 12:50 | MHC.OFFVIS ---
Vital Signs 05/19/24 12:52 Height 5 ft 3 in Weight 137 lb 9.095 oz BMI 24.4 BP 120/62 Blood Pressure Location Lt brachial Position Sitting Pulse 82 Pulse Source Monitor Intake Visit Reasons: 1 yr f/u Intake Note: 1 yr f/up Grain Shoveler Required: Yes Grain Shoveler Language: Clerical Grader Name: [email or web address] Accompanied by: Self / Same As Patient Allergies No Known Allergies Allergy (Mild, Verified 05/15/24 08:58) NONE Medication List - Last Reconciled 05/19/24 by Brandie Amaro, ERASMO-C aspirin 81 mg PO DAILY atorvastatin 80 mg PO DAILY cholecalciferol (vitamin D3) (Vitamin D3) 50 mcg PO DAILY dapagliflozin propanediol (Farxiga) 10 mg PO QAM metoprolol succinate ER 25 mg PO QAM omeprazole 20 mg PO QAM HPI HPI 1 yr f/u: Details: E friend is an 83-year-old male with past medical history of hypertension, hyperlipidemia, diabetes, CAD with inferior STEMI 2015 who presents for follow-up. Today he reports he has been doing well with no concerning symptoms. Denies any chest discomfort at rest or with activity. No shortness of breath, PND, orthopnea or edema. No lightheadedness, presyncope, syncope, falls. He admits to being mostly sedentary. Takes all his meds as directed. Family member present. Certified vocational rehabilitation counselor used. [facility] Medical History (Updated 05/19/24 @ 13:18 by Brandie Amaro, RN INTEGRATED-C) Renal osteodystrophy Stage 3 chronic kidney disease Coronary atherosclerosis Essential hypertension Mixed hyperlipidemia Mild nonproliferative diabetic retinopathy Benign prostatic hyperplasia Gastroesophageal reflux disease Type 2 diabetes mellitus with unspecified complications Atherosclerotic cardiovascular disease Surgical History No pertinent past surgical history Family History Father No problems noted. Mother No problems noted. Social History Household Members: Family Housing: Apartment Alcohol intake: never Patient Tobacco Use Status: Never used Tobacco service: No Review of Systems Const All systems reviewed & are unremarkable except as noted in HPI and below Denies chills, Denies fatigue, Denies fever(s), Denies frequent falls, Denies weakness, Denies weight gain and Denies weight loss ENT Denies dizziness Card Denies chest pain, Denies leg edema, Denies lightheadedness, Denies palpitations, Denies dyspnea and Denies dyspnea on exertion Resp Denies cough, Denies dyspnea and Denies dyspnea on exertion GI Denies hematochezia Musc Denies abnormal gait, Denies muscle weakness, Denies numbness, Denies radiating pain into limb and Denies tingling Neuro Denies abnormal gait, Denies dizziness, Denies frequent falls, Denies numbness, Denies tingling and Denies weakness Endo Denies fatigue and Denies palpitations Physical Exam Vital Signs: Last Vital Signs Pulse 82 05/19/24 12:52 BP 120/62 05/19/24 12:52 BMI result Body Mass Index 24.4 Const General: cooperative, healthy appearing, comfortable and no acute distress Orientation/consciousness: patient oriented x3 Neck Neck: Yes normal visual inspection and Yes no JVD Resp Effort & Inspection: normal respiratory effort Auscultation: clear to auscultation bilaterally, no crackles, no rales, no rhonchi and no wheezes Cardio Jugular venous distension: no JVD Rate: regular rate Rhythm: regular rhythm Heart sounds: S1 normal heart sound present, S2 normal heart sound present, no murmurs and no rubs Neuro General: patient oriented x3 Extrem General: Yes normal to inspection and No no pedal edema Psych Appearance: grossly normal Mental Status: mental status grossly normal Speech and movement: Normal speech and movement present Office Procedures EKG Details: Today, read by me, normal sinus rhythm, inferior infarct, age undetermined, rate 82, QTC 425 millisecond [id number], Complete Assessment & Plan Assessment & Plan (1) Atherosclerotic cardiovascular disease: Code(s): I25.10 - Atherosclerotic heart disease of [place] coronary artery without angina pectoris Category: Medical Plan: History of CAD with inferior STEMI 2015. Notes indicate that catheterization at that time showed RCA was small in size and thought to have chronic stenosis, intermediate grade lesion in the LAD and 100% distal circumflex stenosis. Last echocardiogram 2019 shows EF 60-65%, no regional wall motion abnormalities, mild calcification of the aortic valve and mild mitral annular calcification. EKG done today shows sinus rhythm, inferior infarct, rate 82, QTC 425 milliseconds. He reports no anginal sounding symptoms. He admits to being mostly sedentary. Continue aspirin indefinitely. Continue high-dose atorvastatin, metoprolol. Risk factor modification reviewed with him. Signs and symptoms of angina reviewed. Will update echo prior to next visit due to finding of mild valvular disease. Emergency care if ever needed for symptoms. Cardiology follow-up 1 year, sooner if needed. (2) Essential hypertension: Code(s): I10 - Essential (primary) hypertension Category: Medical Plan: Isabel blood pressure goal less than 130/85. Well controlled at this time. Continue metoprolol. (3) Type 2 diabetes mellitus with unspecified complications: Code(s): E11.8 - Type 2 diabetes mellitus with unspecified complications Category: Medical Plan: Hemoglobin A1c goal less than 7. Labs done 07/07/2023 showed hemoglobin A1c 7.6. By his PCP. (4) Mixed hyperlipidemia: Code(s): E78.2 - Mixed hyperlipidemia Category: Medical Plan: Isabel LDL goal less than 70. Labs done on 05/16/2024 showed LDL 82. AST 38, ALT 37. He continues on atorvastatin 80 mg daily. Will add Zetia 10 mg daily. Will order a fasting lipid profile to be done in 2-3 months. Plan Time spent on chart review, documentation, interview and assessment Orders: Orders CA echo transthoracic complete 11 Months I25.10 - Atherosclerotic heart disease of [place] coronary artery without angina pectoris Lipid Panel 2 Months E78.2 - Mixed hyperlipidemia Medications: New ezetimibe (Zetia) New Cholesterol medication. Take in addition to Atorvastatin 10 mg PO DAILY 90 tabs 3RF Coding Level of Care Code Est Pt Level 4 (45602) Diagnoses Atherosclerotic cardiovascular disease I25.10 Essential hypertension I10 Type 2 diabetes mellitus with unspecified complications E11.8 Mixed hyperlipidemia E78.2 CPT Codes EKG - CPT: 25111-[id number], Complete ([id number]) Time Spent (min) 28
[2024-05-19 12:52] VITALS: BP 120/62; PULSE 82; BMI 24.4
== END 2024-05-19 13:15 | disposition home or self-care (01) ==
PROVIDERS: PCP Internal Medicine; Visit Provider Nurse Practitioner Family
DX: I25.10 Atherosclerotic heart disease of native coronary artery without angina pectoris (principal); I10 Essential (primary) hypertension; E11.8 Type 2 diabetes mellitus with unspecified complications; E78.2 Mixed hyperlipidemia
CPT/HCPCS: 93010; 99214

== ENCOUNTER → 2024-05-19 12:33 | Outpatient (BNVA) | payer MEDICARE, SELFPAY | PROVIDERS: PCP Internal Medicine; Visit Provider Nurse Practitioner Family | DX: I25.10 Atherosclerotic heart disease of native coronary artery without angina pectoris (principal); I10 Essential (primary) hypertension; E78.5 Hyperlipidemia, unspecified; E11.8 Type 2 diabetes mellitus with unspecified complications; E78.2 Mixed hyperlipidemia; I25.2 Old myocardial infarction | CPT/HCPCS: 93005; 99212 ==

== ENCOUNTER 2024-05-22 08:38 | Outpatient (AMB) | payer OTHER, SELFPAY ==
--- NOTE | 2024-05-22 08:40 | A.OFFVIS_ITS ---
Intake Visit Reasons: s/p Excision sebaceous cyst chest Intake Note: Patient here s/p cyst exc on mid chest. Reports incision healing well. Patient c/o: no concerns. 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 He has no wound issues or complaints. Pathology is benign. [facility] Medical History (Updated 05/19/24 @ 13:18 by Brandie Amaro NP-C) Renal osteodystrophy Stage 3 chronic kidney disease Coronary atherosclerosis Essential hypertension Mixed hyperlipidemia Mild nonproliferative diabetic retinopathy Benign prostatic hyperplasia Gastroesophageal reflux disease Type 2 diabetes mellitus with unspecified complications Atherosclerotic cardiovascular disease Surgical History (Updated 05/22/24 @ 08:56 by Jalen Cervantes MD) No pertinent past surgical history Family History Father No problems noted. Mother No problems noted. Social History Household Members: Family Housing: Apartment Alcohol intake: never Patient Tobacco Use Status: Never used Tobacco service: No Physical Exam Chest Other: Incisions clean dry and intact healing very well Assessment & Plan Assessment & Plan (1) Postop check: Code(s): Z09 - Encounter for follow-up examination after completed treatment for conditions other than malignant neoplasm Category: Surgical Plan Patient and family have been given local instructions, and he will otherwise follow-up p.r.n.. All questions answered Coding Level of Care Code Global (80572) Diagnoses Postop check Z09
== END 2024-05-22 08:45 | disposition home or self-care (01) ==
PROVIDERS: PCP Student in an Organized Health Care Education/Training Program; Visit Provider Surgery
DX: Z09 Encounter for follow-up examination after completed treatment for conditions other than malignant neoplasm (principal)
CPT/HCPCS: 99024

== ENCOUNTER → 2024-05-22 08:38 | Outpatient (BNVA) | payer OTHER, SELFPAY | PROVIDERS: PCP Student in an Organized Health Care Education/Training Program; Visit Provider Surgery | DX: Z09 Encounter for follow-up examination after completed treatment for conditions other than malignant neoplasm (principal) | CPT/HCPCS: 99212 ==

== ENCOUNTER 2024-06-12 06:19 | Outpatient (REF) | payer OTHER, SELFPAY ==
[2024-06-12 06:32] LABS: MANUAL DIFF FLAG NO
[2024-06-12 07:52] LABS: Basophils Absolute Auto 0.1 X10*3/uL (0.0-0.2); Basophils Percent Auto 0.7 % (0-2); Eosinophils Absolute Auto 1.9 X10*3/uL (0.0-0.4); Eosinophils Percent Auto 15.2 % (0-4); Hematocrit 43.9 % (42.0-52.0); Imm Gran Abs Auto 0.04 X10*3/uL (0.00-0.03); Imm Gran Pct Auto 0.3 % (0.0-0.4); Lymphocytes Absolute Auto 4.8 X10*3/uL (1.2-4.9); Lymphocytes Percent Auto 38.5 % (20-40); Mean Corpuscular HGB Conc 34.2 g/dl (31.0-36.0); Mean Corpuscular Hemoglobin 31.6 pg (27.0-33.0); Mean Corpuscular Volume 92.4 fL (80.0-98.0); Monocytes Absolute Auto 0.9 X10*3/uL (0.1-1.2); Monocytes Percent Auto 7.2 % (2-11); Neutrophils Absolute Auto 4.7 x10*3/uL (2.0-8.3); Neutrophils Percent Auto 38.1 % (45-73); Platelet Count 235 X10*3/uL (160-400); Red Blood Count 4.75 X10*6/uL (4.60-5.80); Red Cell Distribution Width 12.9 % (11.0-16.0); White Blood Count 12.4 X10*3/uL (4.8-10.8)
[2024-06-12 07:55] LABS: Appearance Urine Clear; Color Urine Yellow; Glucose Urine UA Negative (Negative); Leukocyte Esterase Urine Negative (Negative); Nitrite Urine Negative (Negative); PH 5.5 (5.0-9.0); Urine Blood Negative (Negative); Urine Ketones Negative (Negative); Urine Protein Trace mg/dL (Neg-Trace)
[2024-06-12 08:23] LABS: Parathyroid Hormone Intact 119.1 pg/mL (8.7-77.1)
[2024-06-12 08:28] LABS: Creatinine Urine 149.25 mg/dL; Microalbum/Creatinine Ratio Ur 50.9 ug/mg cr (<30); Protein/Creatinine Ratio, Ur 0.15 (<0.2); Total Protein Urine Random 22 mg/dL (<12)
[2024-06-12 08:31] LABS: Albumin Level 4.2 g/dL (3.5-5.0); Anion Gap 10 (12-20); Blood Urea Nitrogen 27 mg/dL (9-16); Calcium 10.1 mg/dL (8.4-10.2); Carbon Dioxide 24 mmol/L (22-29); Chloride 108 mmol/L (96-108); Estimated Glomerular Filt Rate 35; Phosphorus 2.2 mg/dL (2.7-4.5); Potassium 4.2 mmol/L (3.3-5.1); Sodium 138 mmol/L (135-145)
[2024-06-12 08:50] LABS: Vitamin D 25-OH Total 27.5 ng/mL (>30)
== END 2024-06-12 06:20 | disposition home or self-care (01) ==
LOC: HO.LAB 06:19
PROVIDERS: Absent Provider Internal Medicine Nephrology; PCP Internal Medicine; Visit Provider Internal Medicine
DX: E11.22 Type 2 diabetes mellitus with diabetic chronic kidney disease (principal); N18.32 Chronic kidney disease, stage 3b
CPT/HCPCS: 36415; 80051; 81003; 82040; 82043; 82306; 82310; 82565; 82570; 83735; 83970; 84100; 84156; 84520; 85025

== ENCOUNTER 2024-10-06 08:39 | Outpatient (AMB) | payer OTHER, SELFPAY ==
--- OUTSIDE RECORDS SUMMARY | 2024-10-06 08:50 | XMS_ITS | Encounter Summary ---
Author Organization [employer] Address [address] [place] [address] Care Team Providers Care Cash Surrender Calculator Name Role Phone Anjali Jacome MD Primary Care Provide r Coretta Grady PharmD Unavailable [phone] Encounter Details Date Type Department Care Team ([facility] Contact Info) Description 07/05/2023 Telephone [facility] [address] [place] [address] Anjali Jacome MD [address] [place], [place] [id number] Social History Tobacco Use Types Packs/Day Years Used Date Smoking Tobacco: Former Cigarettes Q uit: 1983 Smokeless Tobacco: Never Depression Answer Date Recorded Patient Health Questionnaire-9 Score 0 02/04/2023 Housing Stability Answer Date Recorded What is your housing situation today? I have cal kj 06/25/[address] you li ve. Do you have problems with any of the following? None of the above 06/25/2023 Food Insecurity Answer Date Recorded Within the past 12 months, y ou worried that your food would run out before you got money to buy more: Never True 06/25/2023 Within the past 12 months,th e food you bought just didn't last and you didn't have enough money to get more: Never True Transportation Answer Date Recorded In the past 12 months, has l ack of transportation kept you from medical appts, meetings, work or from getting things needed for daily living? No 06/25/2023 Utilities Answer Date Recorded In the past 12 months, has t he electric, gas, oil or water company threatened to shut off services in your home? No 06/25/2023 Depression Answer Date Recorded Patient Health Questionnaire-2 Score 0 02/04/2023 Sex and Gender Information Value Date Recorded Sex Assigned at Male 07/06/2022 10:16 AM EDT Legal Sex Male 10:16 AM EDT Gender Identity Male 07/06/2022 10:16 AM EDT Sexual Orientation Choose not to disclose 2021 10:16 AM EDT documented as of this encounter Plan of Treatment Upcoming Encounters Date Type Department Care Team (Late st Contact Info) Description 10/24/2024 10:00 AM EST Medication Management [facility] [address] [place] [phone] Coretta Grady PharmD [address] [place] [phone] 11/01/2024 9:00 AM EST Office Visit [facility] [address] [place] [phone] Anjali Jacome MD [address] [place] [phone] documented as of this encounter Visit Diagnoses Not on filedocumented in this encounter Additional Health Concerns Assessment Noted Time PHQ-9 Depression Total Score: 0 02/05/20 23 2:18 PM EDT documented as of this encounter Care Teams Cash Surrender Calculator Relationship Specialty Start Date End Date Anjali Jacome MD [address] [place] [phone] PCP - General Family Medicine 06/03/22 Coretta Grady PharmD [address] [place] [phone] Pharmacist Internal Medicine 05/04/24 documented as of this encounter
--- OUTSIDE RECORDS SUMMARY | 2024-10-06 08:50 | XMS_ITS | Encounter Summary ---
Author Organization [employer] Address [address] [place] [address] Care Team Providers Care Tray Filler Name Role Phone Anjali Jacome MD Primary Care Provide r Coretta Grady PharmD Unavailable Encounter Details Date Type Department Care Team (Late st Contact Info) Description 11/09/2022 Orders Only [facility] [address] [place] [address] Jane Howell LPN Social History Tobacco Use Types Packs/Day Years Used Date Smoking Tobacco: Never Assessed Sex and Gender Information Value Date Recorded Sex Assigned at Male 07/06/2022 10:16 AM EDT Legal Sex Male 10:16 AM EDT Gender Identity Male 07/06/2022 10:16 AM EDT Sexual Orientation Choose not to disclose 2021 10:16 AM EDT documented as of this encounter Plan of Treatment Upcoming Encounters Date Type Department Care Team (Late Contact Info) Description 10/24/2024 10:00 AM EST Medication Management [facility] MEDICINE [address] [place] [phone] Coretta Grady, PharmD [address] [place] [address] 11/01/2024 9:00 AM EST Office Visit [facility] [address] [place] [phone] Anjali Jacome MD [address] [place] [phone] documented as of this encounter Visit Diagnoses Not on filedocumented in this encounter Care Teams Tray Filler Relationship Specialty Start Date End Date Anjali Jacome MD [address] [place] [address] PCP - General Family Medicine 06/03/22 Coretta Grady PharmD [address] [place] [address] Pharmacist Internal Medicine 05/04/24 documented as of this encounter
--- OUTSIDE RECORDS SUMMARY | 2024-10-06 08:50 | XMS_ITS | Clinical Summary ---
Author Organization [employer] Address [address] [facility] 7[address] [place] [address] Care Team Providers Care Client Support Administrator Name Role Phone Anjali Jacome MD Primary Care Provide r Coretta Grady PharmD Unavailable [phone] Allergies Active Allergy Reactions Criticality Noted Date Comments Dapagliflozin Itching 10/02/2024 Reported to pharmacist on 10/02/2024 Medications Aspirin Low Dose 81 MG EC tablet TAKE 1 TABLET BY MOUTH EVERY MORNING 90 tablet 1 04/24/20 24 Active omeprazole (PriLOSEC) [address] capsuleIndicatio ns:Unspecified abdominal pain TAKE 1 CAPSULE BY MOUTH EVERY MORNING BEFORE A MEAL 90 capsule 1 04/24/20 24 Active atorvastatin (Lipitor) 80 MG tablet TAKE 1 TABLET BY MOUTH AT BEDTIME 90 tablet 1 04/24/20 24 Active D3 Super Strength 50 MCG (2000 UT) capsule Take 50 mcg by mouth in the morning. Active glucose (Glutose) 40 % gel oral gel Take 15 g by mouth if needed for low blood sugar. 60 g 11 05/04/20 24 Active Blood Pressure kitIndications:E ssential hypertension Use as directed 1 kit 05/31/20 24 Active ezetimibe (Zetia) 10 MG tablet Take 10 mg by mouth at bedtime. 05/19/20 24 Active Dulaglutide (Trulicity) 0.75 MG/0.5ML solution auto-injectorInd ications:Type 2 diabetes mellitus with stage 3b chronic kidney disease, with long-term current use of insulin ([facility]) Inject 0.5 mL (0.75 mg) under the skin 1 (one) time per week. 2 mL 3 07/20/20 Active FREESTYLE LITE test stripIndications :Type 2 diabetes mellitus with stage 3b chronic kidney disease, with long-term current use of insulin (CMS/HCC) Test blood sugar twice daily 100 strip 11 07/20/20 Active TRUEplus Lancets 33G miscIndications: Type 2 diabetes mellitus with stage 3b chronic kidney disease, with long-term current use of insulin (CMS/HCC) TEST BLOOD SUGAR TWICE DAILY 100 each 07/20/20 Active metoprolol succinate XL (Toprol-XL) 25 MG 24 hr tablet TAKE 1 TABLET BY MOUTH EVERY MORNING 90 tablet 1 08/16/20 Active Farxiga 10 MG Take 10 mg by mouth in the morning. 10/22/19 025 Discontinued Active Problems Problem Noted Date Diagnosed Date Sebaceous cyst 04/14/2024 Hospital discharge follow-up 08/18/2023 Assessment & Plan (08/18/2023 2:10 PM EST): Back to baseline, med list cleaned up UA clear of evidence of infection Recommend patient discuss DM management with his PCP, but can continue monitoring AM fasting glucose and taking Glipizide and Farixiga Renal osteodystrophy 11/10/2021 Diabetic nephropathy associa riley with type 2 diabetes mellitus 10/30/2020 Proteinuria 10/30/2020 Stage 3 chronic kidney disease 10/30/2020 Coronary arteriosclerosis 06/28/2017 Assessment & Plan (07/18/2024 10:53 AM EST): C/w ASA 81mg, atorvastatin 80mg daily, farxiga 10mg daily Continue to follow up with cardiology Essential hypertension 08/22/2013 Assessment & Plan (07/18/2024 10:53 AM EST): Maintenance: BMP: up to date Lipid Panel: up to date ASCVD Risk:high on appropriate medications - Aerobic exercise to reduce BP. Initial goal of 30 min walk 3-5x/week. Increase as tolerated. - low-sodium diet (goal: <2g/day) and heart healthy diet such as DASH to reduce BP and prevent ASCVD. - Home BP monitoring 1-2 x day with goal of <140/90. - Seek immediate medical attention for chest pain, palpitations, SOB, syncope, or sudden changes in mental status. - Do not change or discontinue current prescriptions without first consulting health care provider Assessment & Plan (04/14/2024 10:08 AM EDT): Maintenance: BMP: up to date Lipid Panel: ordered today ASCVD Risk:high on ASA 81mg daily and on atorvastatin 80mg daily - Aerobic exercise to reduce BP. Initial goal of 30 min walk 3-5x/week. Increase as tolerated. - low-sodium diet (goal: <2g/day) and heart healthy diet such as DASH to reduce BP and prevent ASCVD. - Home BP monitoring 1-2 x day with goal of <140/90. - Seek immediate medical attention for chest pain, palpitations, SOB, syncope, or sudden changes in mental status. - Do not change or discontinue current prescriptions without first consulting health care provider Assessment & Plan (06/25/2023 9:38 AM EDT): - Aerobic exercise to reduce BP. Initial goal of 30 min walk 3-5x/week. Increase as tolerated. - low-sodium diet (goal: <2g/day) and heart healthy diet such as DASH to reduce BP and prevent ASCVD. - Home BP monitoring 1-2 x day with goal of <140/90. - Seek immediate medical attention for chest pain, palpitations, SOB, syncope, or sudden changes in mental status. - Do not change or discontinue current prescriptions without first consulting health care provider Assessment & Plan (02/05/2023 12:10 PM EDT): - Aerobic exercise to reduce BP. Initial goal of 30 min walk 3-5x/week. Increase as tolerated. - low-sodium diet (goal: <2g/day) and heart healthy diet such as DASH to reduce BP and prevent ASCVD. - Home BP monitoring 1-2 x day with goal of <140/90. - Seek immediate medical attention for chest pain, palpitations, SOB, syncope, or sudden changes in mental status. - Do not change or discontinue current prescriptions without first consulting health care provider Benign prostatic hyperplasia 04/20/2012 Gastroesophageal reflux disease 04/20/2012 Mild nonproliferative diabetic retinopathy 04/20 Mixed hyperlipidemia 04/20/2012 Type 2 diabetes mellitus wit h diabetic chronic kidney disease 04/20/2012 Assessment & Plan (07/18/2024 10:54 AM EST): Diabetes is: controlled - Lab Results Component Value Date HGBA1C 6.5 (A) 07/17/2024 HGBA1C 11.0 (A) 05/04/2024 HGBA1C 13.3 (A) 04/14/2024 - Lab Results Component Value Date MICROALBUR 76.0 06/12/2024 CREATININE 1.88 (H) 06/12/2024 -Changes: I discontinue his glipizide - Diabetic eye exam:has an appointment on 09/2024 - Diabetic foot exam:pending - Continue lifestyle modifications - Continue current medications - Follow up: 3 months Assessment & Plan (04/14/2024 10:57 AM EDT): Followed by nephrology Diabetes is: not controlled - Lab Results Component Value Date HGBA1C 13.3 (A) 04/14/2024 HGBA1C 7.6 (H) 07/07/2023 HGBA1C 6.7 (A) 02/04/2023 - Lab Results Component Value Date MICROALBUR 215.0 07/07/2023 CREATININE 1.76 (H) 07/07/2023 -Changes: I started him again on trulicity, I also prescribed for him CGM and refer him to [facility] - Diabetic eye exam: has upcoming appointment - Diabetic foot exam:pending - Continue lifestyle modifications - Continue current medications - Follow up: 3 months Assessment & Plan (06/25/2023 9:39 AM EDT): Lab Results Component Value Date HGBA1C 6.7 (A) 02/04/2023 HGBA1C 13.1 (H) 04/27/2022 - Lab Results Component Value Date MICROALBUR 15.6 04/27/2022 CREATININE 1.71 (H) 02/12/2023 - Diabetic eye exam: up to date - Diabetic foot exam: pending - Continue lifestyle modifications - Continue current medications Assessment & Plan (02/05/2023 12:12 PM EDT): Lab Results Component Value Date HGBA1C 6.7 (A) 02/04/2023 HGBA1C 13.1 (H) 04/27/2022 - Lab Results Component Value Date MICROALBUR 15.6 04/27/2022 CREATININE 2.08 (H) 05/28/2021 - Diabetic eye exam: up to date - Diabetic foot exam: pending - Continue lifestyle modifications - Continue current medications Encounters Date Type Department Care Team Description 08/16/[address] [facility] [address] [place] [address] Anjali Jacome MD 07/18/2024 9:00 AM EST Office Visit [facility] [address] [place] [address] Anjali Jacome MD Essential hypertension (Primary Dx); Type 2 diabetes mellitus with stage 3b chronic kidney disease, with long-term current use of insulin ([facility]); Coronary arteriosclerosis 07/18/2024 Travel 07/17/[address] [facility] [address] [place] [address] Juliana Dover [place] Chart Prep 07/17/2024 Travel 07/12/[address] [facility] [address] [place], [place] [phone] Coretta Grady, Song Type 2 diabetes mellitus with stage 3b chronic kidney disease, with long-term current use of insulin ([facility]) from Last 3 Months Immunizations Name Administration Dates Next Due Hep B, adult 03/17/2018,10/18/2017,09/14/2017 INFLUENZA INJECTABLE QUADRIV ALANT CCIIV4 MDCK Multi-dose vial 08/16/2019 Influenza High-dose Quadriva lent Preservative Free 06/01/2022 Influenza injectable quadriv alent IIV4 with preservative 06/28/2017,08/08/2015 Influenza, High Dose Seasona l, Preservative Free 05/31/2024,06/27/2018 Influenza, IIV3, injectable 05/22/2014, 2,11/11/2011 Influenza, Split (incl. ochoa fied surface antigen) 06/14/2013 Influenza, Unspecified 06/01/2022,2013,07/07/2012,11/10 Stanton SARS-CoV-2 Vaccination 12/04/2020 Moderna Covid-19 Vaccine 12+ 01/22/2022 Pfizer Covid-19 Vaccine 12+ 07/22/2021 Pneumococcal Conjugate PCV 20 06/01/2022 Pneumococcal Polysaccharide PPSV23 11/11/2011, RSV Bivalent 05/04/2024 TD (adult), 2 Lf tetanus tox oid, preservative free, adsorbed 11/11/2011,09/07/2001 Tdap 09/19/2013 Zoster, live 09/14/2017 Social History Tobacco Use Types Packs/Day Years Used Date Smoking Tobacco: Former Cigarettes Q uit: 1983 Passive Smoke Exposure: Past Smokeless Tobacco: Never Tobacco Cessation:Counseling Given: Not Answered Alcohol Use Standard Drinks/Week Comments Never 0 (1 standard drink = 0.6 oz pur e alcohol) Depression Answer Date Recorded Patient Health Questionnaire-9 Score 0 04/14/2024 Patient Health Questionnaire-9 Score 0 04/14/2024 Last PHQ-9: Questionnaire Data Not on file 0 04/14/2024 Housing Stability Answer Date Recorded What is your housing situation today? Not on sunita e 04/14/[address] you li ve. Do you have problems with any of the following? None of the above 04/14/2024 Food Insecurity Answer Date Recorded Within the past 12 months, y ou worried that your food would run out before you got money to buy more: Never True 04/14/2024 Within the past 12 months,th e food you bought just didn't last and you didn't have enough money to get more: Never True 05/2024 Transportation Answer Date Recorded In the past 12 months, has l ack of transportation kept you from medical appts, meetings, work or from getting things needed for daily living? No 04/14/2024 Utilities Answer Date Recorded In the past 12 months, has t he electric, gas, oil or water company threatened to shut off services in your home? No 04/14/2024 Depression Answer Date Recorded Patient Health Questionnaire-2 Score 0 04/14/2024 Internet Access Answer Date Recorded Internet Access Q1 No 05/05/2024 Internet Access Q2 I do not want or need it 04/08 Sex and Gender Information Value Date Recorded Sex Assigned at Male 07/06/2022 10:16 AM EDT Legal Sex Male 10:16 AM EDT Gender Identity Male 07/06/2022 10:16 AM EDT Sexual Orientation Choose not to disclose 2021 10:16 AM EDT Last Filed Vital Signs Vital Sign Reading Time Taken Comments Blood Pressure 127/81 07/18/2024 9:26 AM EST Pulse 78 07/18/2024 9:26 AM EST Temperature 36.1 ??C (96.9 ??F) 07/18/2024 9:26 AM ES T Respiratory Rate 20 07/18/2024 9:26 AM EST Oxygen Saturation 100% 07/18/2024 9:26 AM EST Inhaled Oxygen Concentration - - Weight 63.1 kg (139 lb 3.2 oz) 07/18/2024 9:26 A M EST Height 160 cm (5' 3 ) 07/18/2024 9:26 AM EST Body Mass Index 24.66 07/18/2024 9:26 AM EST Plan of Treatment Upcoming Encounters Date Type Department Care Team (Late st Contact Info) Description 10/24/2024 10:00 AM EST Medication Management [facility] [address] [place] [phone] Coretta Grady, PharmD [address] [place] [phone] 11/01/2024 9:00 AM EST Office Visit [facility] [address] [place] [phone] Anjali Jacome MD [address] [place] [address] Health Maintenance Due Date Last Done Comments Diabetes: Foot Exam 1950 Eye Exam 1950 Zoster Vaccines (2 of 3) 11/09/2017 09/14/2017 DTaP/Tdap/Td Vaccines (2 - Td or Tdap) 09/19/2023 09/19/2013, 11/11/2011, 09/07/2001 SDOH Screening 01/29/2024 01/28/2023 COVID-19 Vaccine ( season) 2024 01/22/2022, 07/22/2021, 12/04/2020 Diabetes: Hemoglobin A1C 01/14/2025 024, 05/04/2024, 04/14/2024, Additional history exists Alcohol/Substance Use Screening 04/14/2025 04/14/2024 Depression Screening 04/14/2025 04/14/2024, 04/14/20 24 Tobacco Screening 04/14/2025 04/14/2024 Lipid Panel 05/16/2025 05/16/2024, 06/0 05/2023, 04/27/2022, Additional history exists Hepatitis B Vaccines Completed 03/17/2018, 10/18/2017, 09/14/2017 Pneumococcal Vaccine: 50+ Years Completed 06/01/2022, 11/11/2011, 07/16/2005 RSV Patients and Patients Aged 60 years or older Completed 05/04/2024 Influenza Vaccine Completed 05/31/2024, , 06/01/2022, Additional history exists HIB Vaccines Aged Out No longer eligi ble based on patient's age to complete this topic HPV Vaccines Aged Out No longer eligi ble based on patient's age to complete this topic Hepatitis A Vaccines Aged Out No long er eligible based on patient's age to complete this topic IPV Vaccines Aged Out No longer eligi ble based on patient's age to complete this topic Meningococcal Vaccine Aged Out No nathen amber eligible based on patient's age to complete this topic RSV under 20 months Aged Out No longe r eligible based on patient's age to complete this topic Rotavirus Vaccines Aged Out No longer eligible based on patient's age to complete this topic Procedures Procedure Name Priority Date/Time Associated Diagnosis Comments POCT GLUCOSE Routine 07/18/2024 9:39 AM EST Type 2 diabetes mellitus with stage 3b chronic kidney disease, with long-term current use of insulin ([facility]) POCT GLYCATED HEMOGLOBIN, TOTAL Routine 07/17/2024 10:35 AM EST Type 2 diabetes mellitus with stage 3b chronic kidney disease, with long-term current use of insulin ([facility]) LIPID PANEL WITH REFLEX TO DIRECT LDL Routine 05/16/2024 8:20 AM EDT Type 2 diabetes mellitus with stage 3b chronic kidney disease, with long-term current use of insulin ([facility]) Essential hypertension from Last 3 Months or Most Recently Relevant to Health Maintenance Results * POCT Glucose (07/18/2024 9:39 AM EST) Glucose Blood, POC 116 60 - 200 mg/dL QC Media Lot # [id number] Lot# Expiration Date [id number] Blood Capillary blood specimen / Unknown 07/18/2024 9:39 AM EST us Anjali Car MD POINT OF CARE TEST EN TER/EDIT ORDERABLES Final Result * (ABNORMAL) POCT HGB A1C (07/17/2024 10:35 AM EST) Hemoglobin A1C 6.5(A) 4.0 - 6.0 % QC Media Lot # [id number] Lot# Expiration Date [id number] Blood 07/17/2024 10:3 5 AM EST us Anjali Car MD POINT OF CARE TEST EN TER/EDIT ORDERABLES Final Result * (ABNORMAL) Lipid Panel with Reflex to Direct LDL (05/16/2024 8:20 AM EDT) Triglycerides 148 <150 mg/dL [facility] Comment:Desirable Triglyceri de: less than 150 mg/dLBorderline High Triglyceride 150-199 mg/dLHigh Triglyceride: 200-499 mg/dLVery High Triglyceride: greater than or equal to 5OO mg/dL Cholesterol 143 <200 mg/dL [facility] Comment:Desirable Cholestero l: less than 200 mg/dLBorderline High Cholesterol: 200-239 mg/dLHigh Cholesterol: greater than 239 mg/dL LDL Cholesterol Calculated 82 <100 mg/dL [facility] Comment:Desirable LDL: less than 100 mg/dLNear Optimal/Above Optimal LDL: 110- 129 mg/dLBorderline High LDL: 130-159 mg/dLHigh LDL: 160-189 mg/dLVery High LDL: greater than or equal to 190 mg/dL HDL Cholesterol 32(L) >40 mg/dL [facility] Comment:Desirable HDL: great er than 40 mg/dL Note: This HDL assay may give artificially low results in patients with liver disease. Blood 05/16/2024 8:20 AM EDT 05/16/2024 11:09 AM EDT us Anjali Car MD LAB BLOOD ORDERABLES Final Result [facility] [address] [place] [phone] from Last 3 Months or Most Recently Relevant to Health Maintenance Insurance [facility] Care Teams Client Support Administrator Relationship Specialty Start Date End Date Anjali Jacome MD [address] [place] [phone] PCP - General Family Medicine 06/03/22 Coretta Grady, AsherD [address] [place] [address] Pharmacist Internal Medicine 05/04/24
--- OUTSIDE RECORDS SUMMARY | 2024-10-06 08:50 | XMS_ITS | Encounter Summary ---
Author Organization [employer] Address [address] [place] [address] Care Team Providers Care Sales Representative Uniforms Name Role Phone Anjali Jacome MD Primary Care Provide r Coretta Grady PharmD Unavailable [phone] Reason for Visit * Reason Comments Med Refill Encounter Details Date Type Department Care Team ([facility] st Contact Info) Description 10/26/2023 Refill [facility] [address] [place] [address] Anjali Jacome MD [address] [place], [place] [phone] Type 2 diabetes mellitus with other specified complication, unspecified whether detention insulin use ([facility]) Social History Tobacco Use Types Packs/Day Years Used Date Smoking Tobacco: Former Cigarettes Q uit: 1982 Smokeless Tobacco: Never Depression Answer Date Recorded Patient Health Questionnaire-9 Score 0 02/04/2023 Housing Stability Answer Date Recorded What is your housing situation today? 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) documented in this encounter Additional Health Concerns Assessment Noted Time PHQ-9 Depression Total Score: 0 02/05/20 23 2:18 PM EDT documented as of this encounter Care Teams Sales Representative Uniforms Relationship Specialty Start Date End Date Anjali Jacome MD [address] [place] [address] [phone] PCP - General Family Medicine 06/03/22 Coretta Grady PharmD [address] [place] [address] [phone] Pharmacist Internal Medicine 05/04/24 documented as of this encounter
--- OUTSIDE RECORDS SUMMARY | 2024-10-06 08:50 | XMS_ITS | Encounter Summary ---
Author Organization [employer] Address [address] [place] [address] Care Team Providers Care Rim Fire Priming Tool Setter Name Role Phone Anjali Jacome MD Primary Care Provide r Coretta Grady PharmD Unavailable [phone] Reason for Visit * Reason Comments Med Refill Encounter Details Date Type Department Care Team ([facility] st Contact Info) Description 08/08/2023 Refill [facility] [address] [place] [address] Anjali Jacome MD [address] [place], [place] [phone] Social History Tobacco Use Types Packs/Day Years [...] Description 10/24/2024 10:00 AM EST Medication Management [facility] [address] [place] [phone] Coretta Grady PharmD [address] [place] [phone] 11/01/2024 9:00 AM EST Office Visit [facility] [address] [place] [phone] Anjali Jacome MD [address] [place] [address] [phone] documented as of this encounter Visit Diagnoses Not on filedocumented in this encounter Additional Health Concerns Assessment Noted Time PHQ-9 Depression Total Score: 0 02/05/20 23 2:18 PM EDT documented as of this encounter Care Teams Rim Fire Priming Tool Setter Relationship Specialty Start Date End Date Anjali Jacome MD [address] [place] [address] [phone] PCP - General Family Medicine 06/03/22 Coretta Grady PharmD [address] [place] [address] [phone] Pharmacist Internal Medicine 05/04/24 documented as of this encounter
--- OUTSIDE RECORDS SUMMARY | 2024-10-06 08:50 | XMS_ITS | Encounter Summary ---
Author Organization [employer] Address [address] [facility] [address] [place] [address] Care Team Providers Care Real Estate Agency Principal Name Role Phone Anjali Jacome MD Primary Care Provide r Coretta Grady PharmD Unavailable [phone] Reason for Visit * Reason Onset Date Comments HDF 08/02/2023 Encounter Details Date Type Department Care Team ([facility] Contact Info) Description 08/02/2023 Telephone [facility] [address] [place] [address] Anjali Jacome MD [address] [place], [place] [phone] HDF Social History Tobacco Use Types Packs/Day Years [...] AM EDT documented as of this encounter Miscellaneous Notes * Telephone Encounter - Giuliana Aaron - 08/02/2023 9:33 AM EST TC from daughter of pt calling for HDF follow up appointment and reports Urine infection and pneumonia. Patient hospitalized at [facility] and discharged on 07/24. Patient advised will forward to triage nurse for follow up and appointment. PCP Dr. Mosley documented in this encounter Plan of Treatment Upcoming Encounters Date Type Department Care Team (Late st Contact Info) Description 10/24/2024 10:00 AM EST Medication Management [facility] [address] [place] [phone] Coretta Grady, PharmD [address] [place] [address] 11/01/2024 9:00 AM EST Office Visit [facility] [address] [place] [phone] Anjali Jacome MD [address] [place] [phone] documented as of this encounter Visit Diagnoses Not on filedocumented in this encounter Additional Health Concerns Assessment Noted Time PHQ-9 Depression Total Score: 0 02/05/20 23 2:18 PM EDT documented as of this encounter Care Teams Real Estate Agency Principal Relationship Specialty Start Date End Date Anjali Jacome MD [address] [place] [phone] PCP - General Family Medicine 06/03/22 Coretta Grady, AsherD [address] [place] [address] [place] [phone] Pharmacist Internal Medicine 05/04/24 documented as of this encounter
--- OUTSIDE RECORDS SUMMARY | 2024-10-06 08:50 | XMS_ITS | Encounter Summary ---
Author Organization [employer] Address [address] [facility] 7t [place] [address] Care Team Providers Care Rn Flight Name Role Phone Anjali Jacome MD Primary Care Provide r Coretta Grady PharmD Unavailable [phone] Reason for Visit * Reason Onset Date Comments PA 10/19/2022 Encounter Details Date Type Department Care Team ([facility] Contact Info) Description 10/19/2022 Telephone [facility] [address] [place] [address] Anjali Jacome MD [address] [place], [place] [phone] PA Social History Tobacco Use Types Packs/Day Years Used Date Smoking Tobacco: Never Assessed Sex and Gender Information Value Date Recorded Sex Assigned at Male 07/06/2022 10:16 AM EDT Legal Sex Male 10:16 AM EDT Gender Identity Male 07/06/2022 10:16 AM EDT Sexual Orientation Choose not to disclose 2021 10:16 AM EDT documented as of this encounter Miscellaneous Notes * Telephone Encounter - Katelyn Gomez - 10/19/2022 11:37 AM EST Patient is to be booked for Dm visit to discuss FreeStyle Tommy 2 with any covering provider as primary is on leave. * Telephone Encounter - Giuliana Walker - 10/19/2022 11:08 AM EST TC from [place] Daughter of pt calling stated Pt Need a PA for Freestyle reader/sensor. PCP DR. Mosley documented in this encounter Plan of Treatment Upcoming Encounters Date Type Department Care Team (Late st Contact Info) Description 10/24/2024 10:00 AM EST Medication Management [address] [address] Coretta Grady PharmD [address] [place] [address] 11/01/2024 9:00 AM EST Office Visit [address] [address] Anjali Jacome MD [address] [place] [phone] documented as of this encounter Visit Diagnoses Not on filedocumented in this encounter Care Teams Rn Flight Relationship Specialty Start Date End Date Anjali Jacome MD [address] [place] [phone] PCP - General Family Medicine 06/03/22 Coretta Grady PharmD [address] [place] [phone] Pharmacist Internal Medicine 05/04/24 documented as of this encounter
--- OUTSIDE RECORDS SUMMARY | 2024-10-06 08:50 | XMS_ITS | Clinical Summary ---
Author Organization [facility] Facility Address [address] [place] [address] Care Team Providers Care Counter Clerk Name Role Phone Jero, Moe Primary Care Provider Unavaila ble Allergies No known active allergies Medications aspirin (ST SHAMAR) 81 MG EC tablet Take 1 tablet by mouth 1 (one) time each day Active atorvastatin (LIPITOR) 80 MG tablet Take 1 tablet by mouth 1 (one) time each day Active metoprolol succinate XL (TOPROL-XL) 25 MG 24 hr tablet Take 1 tablet by mouth 1 (one) time each day Active omeprazole (PriLOSEC) [address] capsule Take 1 capsule by mouth 1 (one) time each day Active glipiZIDE (GLUCOTROL) 5 MG tablet Take 5 mg by mouth in the morning and 5 mg in the evening. Take before meals. Active nitroglycerin (NITROSTAT) 0.[address] 0.4 mg under the tongue every 5 (five) minutes if needed for chest pain Active Cholecalciferol (Vitamin D) 50 MCG (1999) capsule Take 1 tablet by mouth 1 (one) time each day 90 capsule 3 12/31/2023 5 Active Trulicity 1.5 MG/0.5ML solution pen-injector Inject 1.5 mg under the skin per week 05/04/2024 Active Farxiga 10 MG tablet TAKE 1 TABLET BY MOUTH EVERY MORNING 90 tablet 1 06/13/2024 Active Active Problems Problem Noted Date Diagnosed Date Post-discharge follow-up 08/18/2023 023 Overview (08/23/2023): Last Assessment & Plan: Back to baseline, med list cleaned up UA clear of evidence of infection Recommend patient discuss DM management with his PCP, but can continue monitoring AM fasting glucose and taking Glipizide and Farixiga Stage 3b chronic kidney disease 02/09/2022 Renal osteodystrophy 11/10/2021 Chronic kidney disease stage 2 07/07/2021 Type 2 diabetes mellitus wit h diabetic chronic kidney disease 04/01/2021 Stage 3a chronic kidney disease 10/30/2020 Essential hypertension 10/30/2020 Proteinuria 10/30/2020 Renal disorder due to type 2 diabetes mellitus 0 10/30/2020 Coronary arteriosclerosis 06/28/20172022 Mixed hyperlipidemia 04/20/2012 08/23/2023 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 04/20/2012 08/23/2023 Gastroesophageal reflux disease 04/20/2012 08/23/2023 Benign prostatic hyperplasia 04/20/2012 Immunizations Name Administration Dates Next Due Hepatitis B 03/17/2018,10/18/2017,09/14/2017 Influenza Split 06/14/2013 Influenza Split High Dose Pr eservative Free IM 06/27/2018 Influenza, MDCK, Quadrivalen t, with preservative 08/16/2019 Influenza, Quadrivalent, Wit h Preservative 06/28/2017,08/08/2015 Influenza, Unspecified 06/01/2022,2013,07/07/2012,11/10 Stanton SARS-COV-2 12/04/2020 Moderna SARS-COV-2 01/22/2022 Pfizer SARS-COV-2 07/22/2021 Pneumococcal Conjugate Pcv 20 06/01/2022 Pneumococcal Polysaccharide 11/11/2011, 5 Td 11/11/2011,09/07/2001 Tdap 09/19/2013 Zoster 09/14/2017 Family History Medical History Relation Comments Diabetes Child 1 Hypertension Child 2 Relation Status Comments Child 1 Child 2 Social History Tobacco Use Types Packs/Day Years Used Date Smoking Tobacco: Never Smokeless Tobacco: Never Alcohol Use Standard Drinks/Week Comments No 0 (1 standard drink = 0.6 oz pur e alcohol) Sex and Gender Information Value Date Recorded Sex Assigned at Not on file Legal Sex Male 4:44 PM EST Gender Identity Not on file Sexual Orientation Not on file Last Filed Vital Signs Vital Sign Reading Time Taken Comments Blood Pressure 117/62 05/22/2024 1:09 PM EDT Pulse 66 05/22/2024 1:09 PM EDT Temperature - - Respiratory Rate - - Oxygen Saturation 98% 05/22/2024 1:09 PM EDT Inhaled Oxygen Concentration - - Weight 62.5 kg (137 lb 12.8 oz) 05/22/2024 1:09 PM EDT Height - - Body Mass Index - - Plan of Treatment Upcoming Encounters Date Type Department Care Team (Late st Contact Info) Description 02/12/2025 2:15 PM EDT Office Visit [facility] [address] [facility] [place] [address] Evan Chauhan MD [address] [facility] [address] [place] [address] Health Maintenance Due Date Last Done Comments Diabetes: Ophthalmology Exam 10/06/2020 Diabetes: Pedal Pulse Checked 10/06/2020 Diabetes: Sensory Foot Exam 10/06/2020 Diabetes: Visual Foot Exam 10/06/2020 Influenza Vaccine (#1) 2024 , 08/16/2019, 06/27/2018, Additional history exists Diabetes: Hemoglobin A1C 08/04/2024 024, 04/14/2024, 07/07/2023 Hepatitis B Vaccine Aged Out 03/17/2018, 10/18/2017, 09/14/2017 No longer eligible based on patient's age to complete this topic Pneumococcal Vaccine: 65+ Years Completed 06/01/2022, 11/11/2011, 07/16/2005 Insurance [place] [id number] [facility] ([id number]) [facility] ([id number]) Care Teams Counter Clerk Relationship Specialty Start Date End Date Moe Nogueira PCP - General Internal Medicine 04/01/21
--- OUTSIDE RECORDS SUMMARY | 2024-10-06 08:50 | XMS_ITS | Encounter Summary ---
Author Organization [employer] Address [address] [facility] [address] 7[address] [place] [address] Care Team Providers Care Clinical Informatics Manager Name Role Phone Anjali Jacome MD Primary Care Provide r Coretta Grady PharmD Unavailable [phone] Encounter Details Date Type Department Care Team ([facility] st Contact Info) Description 06/15/2023 Orders Only [facility] [address] [place], [place] [phone] Devi Dumont LPN Social History Tobacco Use Types Packs/Day Years Used Date Smoking Tobacco: Former Cigarettes Q uit: 1982 Smokeless Tobacco: Never Depression Answer Date Recorded Patient Health Questionnaire-9 Score 0 02/04/2023 Housing Stability Answer Date Recorded What is your housing situation today? I have [place] 06/13/[address] you li ve. Do you have problems with any of the following? None of the above 06/13/2023 Food Insecurity Answer Date Recorded Within the past 12 months, y ou worried that your food would run out before you got money to buy more: Never True 06/13/2023 Within the past 12 months,th e food you bought just didn't last and you didn't have enough money to get more: Never True 04/2023 Transportation Answer Date Recorded In the past 12 months, has l ack of transportation kept you from medical appts, meetings, work or from getting things needed for daily living? No 06/13/2023 Utilities Answer Date Recorded In the past 12 months, has t he electric, gas, oil or water company threatened to shut off services in your home? No 06/13/2023 Depression Answer Date Recorded Patient Health Questionnaire-2 [...] Description 10/24/2024 10:00 AM EST Medication Management [address] [address] Coretta Grady PharmD [address] [place] [phone] 11/01/2024 9:00 AM EST Office Visit [address] [address] Anjali Jacome MD [address] [place] [phone] documented as of this encounter Visit Diagnoses Not on filedocumented in this encounter Additional Health Concerns Assessment Noted Time PHQ-9 Depression Total Score: 0 02/05/20 23 2:18 PM EDT documented as of this encounter Care Teams Clinical Informatics Manager Relationship Specialty Start Date End Date Anjali Jacome MD [address] [place] [phone] PCP - General Family Medicine 06/03/22 Coretta Grady, PharmD [address] [place] [address] [phone] Pharmacist Internal Medicine 05/04/24 documented as of this encounter
[2024-10-06 09:02] VITALS: BP 120/82; PULSE 90; BMI 24.8
--- NOTE | 2024-10-06 09:02 | MHC.OFFVIS ---
Vital Signs 10/06/24 09:02 Height 5 ft 3 in Weight 140 lb 3.424 oz BMI 24.8 BP 120/82 Blood Pressure Location Lt brachial Position Sitting Pulse 90 Pulse Source Monitor Intake Visit Reasons: f/up-per DC General Production Laborer Required: Yes General Production Laborer Language: Lining Cementer Name: voice cherry [id number] Door Assembler: Door Assembler Present Allergies No Known Allergies Allergy (Mild, Verified 10/06/24 09:07) NONE Medication List - Last Reconciled 10/06/24 by Brandie Amaro NP-C aspirin 81 mg PO DAILY atorvastatin 80 mg PO DAILY cholecalciferol (vitamin D3) (Vitamin D3) 50 mcg PO DAILY dapagliflozin propanediol (Farxiga) 10 mg PO QAM dulaglutide (Trulicity) mg subcut ezetimibe (Zetia) 10 mg PO DAILY metoprolol succinate ER 25 mg PO QAM omeprazole 20 mg PO QAM HPI HPI f/up-per DC: Details: Solomon is an 84-year-old male with past medical history of hypertension, hyperlipidemia, diabetes, CAD with inferior STEMI 2015 who presents for follow-up. Today he reports that last week when we had snow he shovels outside and tolerated it well at that time. The following morning he was woken at 01:00 and had discomfort in the left chest region described as uncomfortable pins and needles that radiated into his left arm. The symptom lasted about 2 hours before resolving. He has never had symptoms like this in the past. He has not had recurrent symptoms as well. He is mostly sedentary. No chest discomfort brought on by doing actual activities. No shortness of breath, PND, orthopnea or edema. No lightheadedness, presyncope, syncope, falls. He has been taking his meds as directed. is present. Certified language interpreter used. [facility] Medical History Renal osteodystrophy Stage 3 chronic kidney disease Coronary atherosclerosis Essential hypertension Mixed hyperlipidemia Mild nonproliferative diabetic retinopathy Benign prostatic hyperplasia Gastroesophageal reflux disease Type 2 diabetes mellitus with unspecified complications Atherosclerotic cardiovascular disease Surgical History No pertinent past surgical history Family History Father No problems noted. Mother No problems noted. Social History Household Members: Family Housing: Apartment Alcohol intake: never Patient Tobacco Use Status: Never used Tobacco service: No Review of Systems Const All systems reviewed & are unremarkable except as noted in HPI and below ENT Denies dizziness Card Reports chest pain, Denies chest pain at rest, Denies chest pain with activity, Denies rapid heart rate, Denies pedal edema, Denies edema, Denies leg edema, Denies lightheadedness, Denies palpitations, Denies dyspnea, Denies dyspnea on exertion and Denies orthopnea Resp Denies cough, Denies dyspnea and Denies dyspnea on exertion GI Denies hematochezia and Denies change in stool character Musc Reports abnormal gait (uses cane), Denies limited range of motion, Denies muscle cramps, Denies muscle weakness, Denies numbness, Denies radiating pain into limb, Denies stiffness and Denies tingling Neuro Reports abnormal gait (uses cane), Denies dizziness, Denies numbness and Denies tingling Endo Denies palpitations Physical Exam Vital Signs: Last Vital Signs Pulse 90 10/06/24 09:02 BP 120/82 10/06/24 09:02 BMI result Body Mass Index 24.8 Const General: cooperative, healthy appearing, comfortable and no acute distress Orientation/consciousness: patient oriented x3 Neck Neck: Yes normal visual inspection Resp Effort & Inspection: normal respiratory effort Auscultation: clear to auscultation bilaterally, no crackles, no rales, no rhonchi and no wheezes Cardio Rate: regular rate Rhythm: regular rhythm Heart sounds: S1 normal heart sound present, S2 normal heart sound present, no gallops, no murmurs and no rubs Neuro General: patient oriented x3 Extrem General: Yes normal to inspection, No no pedal edema and No calf tenderness Psych Appearance: grossly normal Mental Status: mental status grossly normal Speech and movement: Normal speech and movement present Office Procedures EKG Details: Today, read by me, SR, inferior infarct, left axis, rate 90, QTc 420ms [id number], Complete Assessment & Plan Assessment & Plan (1) Atherosclerotic cardiovascular disease: Code(s): I25.10 - Atherosclerotic heart disease of [place] coronary artery without angina pectoris Category: Medical Plan: History of CAD with inferior STEMI 2016. Notes indicate that catheterization at that time showed RCA was small in size and thought to have chronic stenosis, intermediate grade lesion in the LAD and 100% distal circumflex stenosis. Last echocardiogram 2019 shows EF 60-65%, no regional wall motion abnormalities, mild calcification of the aortic valve and mild mitral annular calcification. Today he reports that he had an episode of chest discomfort as described above. It occurred several hours after doing shoveling and was different than any sensation he has had in the past. He has not had any recurrent chest discomfort at that time but has done only light activities. EKG done today shows sinus rhythm, inferior infarct, rate 90. His discomfort could have been angina. Instructed on not shoveling. Will increase his metoprolol up to 50 mg daily. Continue aspirin indefinitely. Continue high-dose atorvastatin. Will order an echocardiogram to reassess EF and wall motion. Will check a pharmacological nuclear stress test to evaluate for ischemia. He will not be able to walk on a treadmill as he ambulates with a cane. Signs and symptoms of angina reviewed. Emergency care if ever needed for symptoms. Cardiology follow-up 3 months, sooner if needed. He will be called with test results once available. (2) Essential hypertension: Code(s): I10 - Essential (primary) hypertension Category: Medical Plan: [place] blood pressure goal less than 130/85. Well controlled at this time. Increasing metoprolol as above. (3) Type 2 diabetes mellitus with unspecified complications: Code(s): E11.8 - Type 2 diabetes mellitus with unspecified complications Category: Medical Plan: Hemoglobin A1c goal less than 7. Followed by his PCP. (4) Mixed hyperlipidemia: Code(s): E78.2 - Mixed hyperlipidemia Category: Medical Plan: [place] LDL goal less than 70. Labs done on 05/16/2024 showed LDL 82. AST 38, ALT 37. He continues on atorvastatin 80 mg daily. Will add Zetia 10 mg daily. He is due for an updated fasting lipid profile. Reminded of this. (5) Chest discomfort: Code(s): R07.89 - Other chest pain Category: Medical Plan Time spent on chart review, documentation, interview and assessment Orders: Orders NM cardiolite stress test Today I25.10 - Atherosclerotic heart disease of [place] coronary artery without angina pectoris, R07.89 - Other chest pain CA lexiscan stress w [place] Today I25.10 - Atherosclerotic heart disease of [place] coronary artery without angina pectoris, R07.89 - Other chest pain Medications: New metoprolol succinate ER dose increase 50 mg PO DAILY 90 tabs 1RF Coding Level of Care Code Est Pt Level 4 (54810) Complex EM visit Add On G2211 Diagnoses Atherosclerotic cardiovascular disease I25.10 Essential hypertension I10 Type 2 diabetes mellitus with unspecified complications E11.8 Mixed hyperlipidemia E78.2 Chest discomfort R07.89 CPT Codes EKG - CPT: 53368-[id number], Complete ([id number]) Time Spent (min) 30
== END 2024-10-06 09:36 | disposition home or self-care (01) ==
PROVIDERS: PCP Internal Medicine; Visit Provider Nurse Practitioner Family
DX: I25.10 Atherosclerotic heart disease of native coronary artery without angina pectoris (principal); I10 Essential (primary) hypertension; E11.8 Type 2 diabetes mellitus with unspecified complications; E78.2 Mixed hyperlipidemia; R07.89 Other chest pain
CPT/HCPCS: 93010; 99214; G2211

== ENCOUNTER → 2024-10-06 08:39 | Outpatient (BNVA) | payer OTHER, SELFPAY | PROVIDERS: PCP Internal Medicine; Visit Provider Nurse Practitioner Family | DX: I25.10 Atherosclerotic heart disease of native coronary artery without angina pectoris (principal); I10 Essential (primary) hypertension; E11.8 Type 2 diabetes mellitus with unspecified complications; E78.2 Mixed hyperlipidemia; R07.89 Other chest pain; R94.31 Abnormal electrocardiogram [ECG] [EKG]; I44.4 Left anterior fascicular block | CPT/HCPCS: 93005; 99212 ==

== ENCOUNTER 2024-10-23 18:13 | Observation (INO) | payer OTHER, SELFPAY ==
--- NOTE | ~2024-10-23 | XR_ITS ---
CLINICAL HISTORY: weakness 1 view chest x-ray Comparison: CR/SR - XR CHEST 2V - 07/22/23 19:11 EST Findings: Heart size is normal. Stable chronic reticular changes in both lungs. No consolidation, significant pleural effusion or pneumothorax. No acute fracture. IMPRESSION: 1. No acute findings. This document has been electronically signed by: Chhaya Clarke MD on 10/23/2024 22:38:30
--- NOTE | ~2024-10-23 | CT_ITS ---
CLINICAL HISTORY: trauma CT cervical spine without contrast Comparison: None Findings: Vertebral alignment is within normal limits. Vertebral body height is maintained. No acute fracture in the cervical spine. Craniocervical junction is intact. Multilevel degenerative changes from C4-5 to C6-7 and at C1-2. Multilevel facet arthropathy. Moderate left and mild right foraminal stenosis at C4-5. Severe bilateral foraminal stenosis at C5-6. Moderate left and mild right foraminal stenosis at C6-7. Prevertebral soft tissues within normal limits. Soft tissues of the neck are within normal limits. Bilateral apical pleural-parenchymal thickening. IMPRESSION: 1. No acute findings. 2. Multilevel degenerative changes and foraminal stenosis as described. This document has been electronically signed by: Chhaya Clarke MD on 10/23/2024 21:45:56
--- NOTE | ~2024-10-23 | CT_ITS ---
CLINICAL HISTORY: trauma CT head without contrast Comparison: CT/SR - BRAIN WO IV CONTRAST [id number] - 08/10/13 21:58 EST Findings: No intra-axial mass, midline shift, hydrocephalus, or acute hemorrhage. Mild atrophy. Nonspecific supratentorial white matter hypodensities most suggestive of chronic small-vessel ischemic changes. Atherosclerotic vascular disease. Punctate bilateral basal ganglia calcifications. There is no sinus or mastoid fluid. The orbits are unremarkable. No skull fracture. IMPRESSION: 1. No acute intracranial findings. This document has been electronically signed by: Chhaya Clarke MD on 10/23/2024 21:55:24
[2024-10-23 18:18] VITALS: BP 130/68; PULSE 115; O2SAT 98
[2024-10-23 18:20] VITALS: BP 129/81; PULSE 119; RESP 18; TEMP 36.7; O2SAT 98; BMI 24.1
[2024-10-23 18:49] VITALS: TEMP 37.3
--- NOTE | 2024-10-23 18:50 | ECG_ITS ---
Test Reason : DIZZINESS Blood Pressure : */* mmHG Vent. Rate : 112 BPM Atrial Rate : 112 BPM P-R Int : 158 ms QRS Dur : 82 ms QT Int : 316 ms P-R-T Axes : 67 -57 42 degrees QTcB Int : 431 ms Sinus tachycardia Left anterior fascicular block Abnormal ECG When compared with ECG of 22-Jul-2023 18:09, No significant change was found Referred By: Christopher Bright Electronically Signed By: ALEJANDRO HAYWARD
--- OUTSIDE RECORDS SUMMARY | 2024-10-23 18:52 | XMS_ITS | Encounter Summary ---
Author Organization [employer] Address [address] [facility] [address] 7t [place] [address] Care Team Providers Care Emt B Name Role Phone Anjali Jacome MD Primary Care Provide r Coretta Grady PharmD Unavailable [phone] Reason for Visit * Reason Comments Med Refill Encounter Details Date Type Department Care Team ([facility] st Contact Info) Description 10/11/2024 Refill [facility] [address] [place] [address] Anjali Jacome MD [address] [place], [place] [phone] Unspecified abdominal pain Social History Tobacco Use Types Packs/Day Years Used Date Smoking Tobacco: Former Cigarettes Q uit: 1983 Passive Smoke Exposure: Past Smokeless Tobacco: Never Alcohol Use Standard Drinks/Week Comments Never 0 [...] Description 10/24/2024 10:00 AM EST Medication Management [facility] [address] [place] [phone] Coretta Grady, PharmD [address] [place] [phone] 11/01/2024 9:00 AM EST Office Visit [address] [address] Anjali Jacome MD [address] [place] [phone] documented as of this encounter Visit Diagnoses Diagnosis Unspecified abdominal pain documented in this encounter Additional Health Concerns Assessment Noted Time PHQ-9 Depression Total Score: 0 04/14/20 24 9:38 AM EDT documented as of this encounter Care Teams Emt B Relationship Specialty Start Date End Date Anjali Jacome MD [address] [place] [phone] PCP - General Family Medicine 06/03/22 Coretta Grady, PharmD [address] [place] [phone] Pharmacist Internal Medicine 05/04/24 documented as of this encounter
--- OUTSIDE RECORDS SUMMARY | 2024-10-23 18:52 | XMS_ITS | Clinical Summary ---
Author Organization [facility] Facility Address [address] [place] [address] Care Team Providers Care Entry Level Manager Name Role Phone Jero, Moe Primary Care [...] Visit [facility] [address] [facility] [place] [address] Evan Chauhan MD [address] [facility] [address] [place] [address] Health Maintenance Due Date Last [...] Completed 06/01/2022, 11/11/2011, 07/16/2005 Insurance [place] [id number] [facility] ([id number]) [facility] ([id number]) Care Teams Entry Level Manager Relationship Specialty Start Date End Date Moe Nogueira PCP - General Internal Medicine 04/01/21
--- OUTSIDE RECORDS SUMMARY | 2024-10-23 18:52 | XMS_ITS | Encounter Summary ---
Author Organization [employer] Address [address] [facility] [address] 7t [place] [address] Care Team Providers Care Financial Systems Director Name Role Phone Anjali Jacome MD Primary Care Provide r Coretta Grady PharmD Unavailable [phone] Encounter Details Date Type Department Care Team ([facility] Contact Info) Description 07/05/2023 Telephone [facility] [address] [place] [address] Anjali Jacome MD [address] [place], [place] [phone] Social History Tobacco Use Types Packs/Day Years [...] Description 10/24/2024 10:00 AM EST Medication Management [facility] [address] [place] [phone] Coretta Grady PharmD [address] [place] [address] 11/01/2024 9:00 AM EST Office Visit [facility] [address] [place] [address] Anjali Jacome MD [address] [place] [phone] documented as of this encounter Visit Diagnoses Not on filedocumented in this encounter Additional Health Concerns Assessment Noted Time PHQ-9 Depression Total Score: 0 02/05/20 23 2:18 PM EDT documented as of this encounter Care Teams Financial Systems Director Relationship Specialty Start Date End Date Anjali Jacome MD [address] [place] [phone] PCP - General Family Medicine 06/03/22 Coretta Grady PharmD [address] [place] [phone] Pharmacist Internal Medicine 05/04/24 documented as of this encounter
--- OUTSIDE RECORDS SUMMARY | 2024-10-23 18:52 | XMS_ITS | Clinical Summary ---
Author Organization [employer] Address [address] [facility] 7t [place] [address] Care Team Providers Care Licensing Specialist Name Role Phone Anjali Jacome MD Primary Care Provide r Coretta Grady PharmD Unavailable [phone] Allergies Active Allergy Reactions Criticality Noted Date Comments Dapagliflozin Itching 10/02/2024 Reported to pharmacist on 10/02/2024 Medications D3 Super Strength 50 MCG (1999) capsule Take 50 mcg by mouth in [...] disease, with long-term current use of insulin (CMS/[facility]) Inject 0.5 mL (0.75 mg) under the skin 1 (one) time per week. 2 mL 3 07/20/20 24 Active FREESTYLE LITE test stripIndications :Type 2 diabetes mellitus with stage 3b chronic kidney disease, with long-term current use of insulin (CMS/HCC) Test blood sugar twice daily 100 strip 11 07/20/20 24 Active TRUEplus Lancets 33G miscIndications: Type 2 diabetes mellitus with stage 3b chronic kidney disease, with long-term current use of insulin (CMS/HCC) TEST BLOOD SUGAR TWICE DAILY 100 each 11 07/20/20 24 Active metoprolol succinate XL (Toprol-XL) 25 MG 24 hr tablet TAKE 1 TABLET BY MOUTH EVERY MORNING 90 tablet 1 08/16/20 24 Active Aspirin Low Dose 81 MG EC tablet TAKE 1 TABLET BY MOUTH EVERY MORNING 90 tablet 1 10/12/19 25 Active omeprazole (PriLOSEC) [address] capsuleIndicatio ns:Unspecified abdominal pain TAKE 1 TABLET BY MOUTH EVERY MORNING BEFORE MEALS 90 capsule 1 10/12/19 25 Active atorvastatin (Lipitor) 80 MG tablet TAKE 1 TABLET BY MOUTH AT BEDTIME 90 tablet 1 10/12/19 25 Active Farxiga 10 MG Take 10 mg by mouth in the morning. 10/22/19 23 025 Discontinued Aspirin Low Dose 81 MG EC tablet TAKE 1 TABLET BY MOUTH EVERY MORNING 90 tablet 1 04/24/20 24 025 Discontinued omeprazole (PriLOSEC) [address] capsuleIndicatio ns:Unspecified abdominal pain TAKE 1 CAPSULE BY MOUTH EVERY MORNING BEFORE A MEAL 90 capsule 1 04/24/20 24 025 Discontinued atorvastatin (Lipitor) 80 MG tablet TAKE 1 TABLET BY MOUTH AT BEDTIME 90 tablet 1 04/24/20 24 025 Discontinued Active Problems Problem Noted Date [...] Encounters Date Type Department Care Team Description 10/11/2024 Refill [facility] [address] [place] [address] Anjali Jacome MD Unspecified abdominal pain 08/16/2024 Refill [facility] [address] [place] [address] Anjali Jacome MD from Last 3 Months Immunizations Name Administration [...] Stanton SARS-CoV-2 Vaccination 12/04/2020 Moderna Covid-19 Vaccine + 01/22/2022 Pfizer Covid-19 Vaccine 12+ 07/22/2021 Pneumococcal [...] 10:00 AM EST Medication Management [facility] [address] [place] [phone] Coretta Grady, PharmD [address] [place] [address] 11/01/2024 9:00 AM EST Office Visit [facility] [address] [place] [phone] Anjali Jacome MD [address] [place] [address] Health Maintenance Due Date Last Done Comments [...] 04/14/2025 04/14/2024 Depression Screening 04/14/2025 04/14/2024, 04/14/20 Tobacco Screening 04/14/2025 04/14/2024 Lipid Panel 05/16/2025 [...] Name Priority Date/Time Associated Diagnosis Comments POCT GLYCATED HEMOGLOBIN, TOTAL Routine 07/17/2024 10:35 AM EST Type 2 diabetes mellitus with stage 3b chronic kidney disease, with long-term current use of insulin ([facility]) LIPID PANEL WITH REFLEX TO DIRECT LDL Routine 05/16/2024 8:20 AM EDT Type 2 diabetes mellitus with stage 3b chronic kidney disease, with long-term current use of insulin ([facility]) Essential hypertension from Last 3 Months or Most Recently Relevant to Health Maintenance Results * (ABNORMAL) POCT HGB A1C (07/17/2024 10:35 AM EST) Hemoglobin A1C 6.5(A) 4.0 - 6.0 % QC Media Lot # [id number] Lot# Expiration Date Blood 07/17/2024 10:3 5 AM EST Anjali Car MD POINT OF CARE TEST EN TER/EDIT ORDERABLES Final Result * (ABNORMAL) Lipid Panel with Reflex to Direct LDL (05/16/2024 8:20 AM EDT) Triglycerides 148 <150 mg/dL [facility] Comment:Desirable Triglyceri de: less than 150 mg/dLBorderline High Triglyceride 150-199 mg/dLHigh Triglyceride: 200-499 mg/dLVery High Triglyceride: greater than or equal to 5OO mg/dL Cholesterol 143 <200 mg/dL [facility] Comment:Desirable Cholestero l: less than 200 mg/dLBorderline High Cholesterol: 200-239 mg/dLHigh Cholesterol: greater than 239 mg/dL LDL Cholesterol Calculated 82 <100 mg/dL [facility] Comment:Desirable LDL: less than 100 mg/dLNear Optimal/Above Optimal LDL: 110- 129 mg/dLBorderline High LDL: 130-159 mg/dLHigh LDL: 160-189 mg/dLVery High LDL: greater than or equal to 190 mg/dL HDL Cholesterol 32(L) >40 mg/dL [facility] Comment:Desirable HDL: great er than 40 mg/dL Note: This HDL assay may give artificially low results in patients with liver disease. Blood 05/16/2024 8:2 0 AM EDT 05/16/2024 11:09 AM EDT Anjali Car MD LAB BLOOD ORDERABLES Final Result [facility] [address] [place] [phone] from Last 3 Months or Most Recently Relevant to Health Maintenance [place] [address] [place] [address] - [employer] Care Teams Licensing Specialist Relationship Specialty Start Date End Date Anjali Jacome MD [address] [place] [address] PCP - General Family Medicine 06/03/22 Coretta Grady PharmD [address] [place] [address] Pharmacist Internal Medicine 05/04/24
--- OUTSIDE RECORDS SUMMARY | 2024-10-23 18:52 | XMS_ITS | Encounter Summary ---
Author Organization [employer] Address [address] [facility] [address] 7t [place] [address] Care Team Providers Care Quarryman Name Role Phone Anjali Jacome MD Primary Care Provide r Coretta Grady PharmD Unavailable [phone] Encounter Details Date Type Department Care Team ([facility] st Contact Info) Description 06/15/2023 Orders Only [facility] & PEDS [address] [place], [place] [phone] Devi Dumont LPN Social History Tobacco Use [...] Description 10/24/2024 10:00 AM EST Medication Management [address] [address] Coretta Grady PharmD [address] [place] [address] 11/01/2024 9:00 AM EST Office Visit [address] [address] Anjali Jacome MD [address] [place] [phone] documented as of this encounter Visit Diagnoses Not on filedocumented in this encounter Additional Health Concerns Assessment Noted Time PHQ-9 Depression Total Score: 0 02/05/20 23 2:18 PM EDT documented as of this encounter Care Teams Quarryman Relationship Specialty Start Date End Date Anjali Jacome MD [address] [place] [address] [phone] PCP - General Family Medicine 06/03/22 Coretta Grady, PharmD [address] [place] [address] [phone] Pharmacist Internal Medicine 05/04/24 documented as of this encounter
--- OUTSIDE RECORDS SUMMARY | 2024-10-23 18:52 | XMS_ITS | Encounter Summary ---
Author Organization [employer] Address [address] [facility] 7t [place] [address] Care Team Providers Care Pediatric Allergist Name Role Phone Anjali Jacome MD Primary Care Provide r Coretta Grady PharmD Unavailable [phone] Encounter Details Date Type Department Care Team (Late st Contact Info) Description 11/09/2022 Orders Only [facility] & PEDS [address] [place] [address] Jane Howell LPN Social History Tobacco Use [...] 10/24/2024 10:00 AM EST Medication Management [facility] [address] [place] [phone] Coretta Grady, PharmD [address] [place] [address] 11/01/2024 9:00 AM EST Office Visit [facility] [address] [place] [address] Anjali Jacome MD [address] [place] [address] documented as of this encounter Visit Diagnoses Not on filedocumented in this encounter Care Teams Pediatric Allergist Relationship Specialty Start Date End Date Anjali Jacome MD [address] [place] [address] PCP - General Family Medicine 06/03/22 Coretta Grady PharmD [address] [place] [address] Pharmacist Internal Medicine 05/04/24 documented as of this encounter
--- OUTSIDE RECORDS SUMMARY | 2024-10-23 18:52 | XMS_ITS | Encounter Summary ---
Author Organization [employer] Address [address] [facility] 7t [place] [address] Care Team Providers Care Press Operator Name Role Phone Anjali Jacome MD Primary Care Provide r Coretta Grady PharmD Unavailable [phone] Reason for Visit * Reason Onset Date Comments PA 10/19/2022 Encounter Details Date Type Department Care Team ([facility] Contact Info) Description 10/19/2022 Telephone [facility] [address] [place] [address] Anjali Jacome MD [address] [place], [place] [phone] PA Social History Tobacco Use Types Packs/Day [...] Description 10/24/2024 10:00 AM EST Medication Management [address] [address] Coretta Grady PharmD [address] [place] [address] 11/01/2024 9:00 AM EST Office Visit [address] [address] Anjali Jacome MD [address] [place] [address] documented as of this encounter Visit Diagnoses Not on filedocumented in this encounter Care Teams Press Operator Relationship Specialty Start Date End Date Anjali Jacome MD [address] [place] [phone] PCP - General Family Medicine 06/03/22 Coretta Grady PharmD [address] [place] [phone] Pharmacist Internal Medicine 05/04/24 documented as of this encounter
--- OUTSIDE RECORDS SUMMARY | 2024-10-23 18:52 | XMS_ITS | Encounter Summary ---
Author Organization [employer] Address [address] [facility] [address] 7t [place] [address] Care Team Providers Care Irrigation District Manager Name Role Phone Anjali Jacome MD Primary Care Provide r Coretta Grady PharmD Unavailable [phone] Reason for Visit * Reason Onset Date Comments HDF 08/02/2023 Encounter Details Date Type Department Care Team ([facility] Contact Info) Description 08/02/2023 Telephone [facility] [address] [place] [address] Anjali Jacome MD [address] [place], [place] [phone] HDF Social History Tobacco Use Types Packs/Day [...] Urine infection and pneumonia. [place] [facility] [place] on [place]24. Patient advised will forward to triage nurse for follow up and appointment. PCP Dr. Mosley documented in this encounter Plan of Treatment Upcoming Encounters Date Type Department Care Team (Late st Contact Info) Description 10/24/2024 10:00 AM EST Medication Management [facility] [address] [place] [address] Coretta Grady, PharmD [address] [place] [address] 11/01/2024 9:00 AM EST Office Visit [facility] [address] [place] [address] Anjali Jacome MD [address] [place] [address] documented as of this encounter Visit Diagnoses Not on filedocumented in this encounter Additional Health Concerns Assessment Noted Time PHQ-9 Depression Total Score: 0 02/05/20 23 2:18 PM EDT documented as of this encounter Care Teams Irrigation District Manager Relationship Specialty Start Date End Date Anjali Jacome MD [address] [place] [address] PCP - General Family Medicine 06/03/22 Coretta Grady, AsherD [address] [place] [address] [place] [address] Pharmacist Internal Medicine 05/04/24 documented as of this encounter
--- OUTSIDE RECORDS SUMMARY | 2024-10-23 18:52 | XMS_ITS | Encounter Summary ---
Author Organization [employer] Address [address] [facility] [address] 7[address] [place] [address] Care Team Providers Care Fiscal Manager Name Role Phone Anjali Jacome MD Primary Care Provide r Coretta Grady PharmD Unavailable [phone] Reason for Visit * Reason Comments Med Refill Encounter Details Date Type Department Care Team ([facility] st Contact Info) Description 10/26/2023 Refill [facility] [address] [place] [address] Anjali Jacome MD [address] [place], [place] [phone] Type 2 diabetes mellitus with other specified complication, unspecified whether traffic maintenance officer insulin use ([facility]) Social History Tobacco Use Types Packs/Day [...] 10:00 AM EST Medication Management [facility] [address] [place] [phone] Coretta Grady PharmD [address] [place] [phone] 11/01/2024 9:00 AM EST Office Visit [facility] [address] [place] [address] Anjali Jacome MD [address] [place] [phone] documented as of this encounter Visit Diagnoses Diagnosis Type 2 diabetes mellitus with other specified complication, unspecified whether traffic maintenance officer insulin use ([facility]) documented in this encounter Additional Health Concerns Assessment Noted Time PHQ-9 Depression Total Score: 0 02/05/20 23 2:18 PM EDT documented as of this encounter Care Teams Fiscal Manager Relationship Specialty Start Date End Date Anjali Jacome MD [address] [place] [address] [phone] PCP - General Family Medicine 06/03/22 Coretta Grady PharmD [address] [place] [phone] Pharmacist Internal Medicine 05/04/24 documented as of this encounter
--- OUTSIDE RECORDS SUMMARY | 2024-10-23 18:52 | XMS_ITS | Encounter Summary ---
Author Organization [employer] Address [address] [facility] [address] 7[address] [place] [address] Care Team Providers Care Director Music Name Role Phone Anjali Jacome MD Primary Care Provide r Coretta Grady PharmD Unavailable [phone] Reason for Visit * Reason Comments Med Refill Encounter Details Date Type Department Care Team ([facility] st Contact Info) Description 08/08/2023 Refill [facility] [address] [place] [address] Anjali Jacome MD [address] [place], [place] [phone] Social History Tobacco Use Types Packs/Day Years Used Date Smoking Tobacco: Former Cigarettes Q uit: 1982 Smokeless Tobacco: Never Depression Answer Date Recorded Patient Health Questionnaire-9 Score 0 02/04/2023 Housing Stability Answer Date Recorded What is your housing situation today? I have cal [place] 06/25/[address] you li [...] Description 10/24/2024 10:00 AM EST Medication Management [facility] [address] [place] [address] Coretta Grady PharmD [address] [place] [phone] 11/01/2024 9:00 AM EST Office Visit [facility] [address] [place] [phone] Anjali Jacome MD [address] [place] [address] [phone] documented as of this encounter Visit Diagnoses Not on filedocumented in this encounter Additional Health Concerns Assessment Noted Time PHQ-9 Depression Total Score: 0 02/05/20 23 2:18 PM EDT documented as of this encounter Care Teams Director Music Relationship Specialty Start Date End Date Anjali Jacome MD [address] [place] [address] [phone] PCP - General Family Medicine 06/03/22 Coretta Grady PharmD [address] [place] [address] [phone] Pharmacist Internal Medicine 05/04/24 documented as of this encounter
--- NOTE | 2024-10-23 19:42 | ED.GENADULT ---
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 The patient presents from home via ambulance. Apparently he was trying to go to the bathroom when his legs felt weak and he fell to the ground. He denies any injury from the fall The patient's daughter is bedside who reports that he did not in fact fall. There was no reported loss of consciousness. The patient denies any pain Apparently the patient's was diagnosed with the flu Per the patient's daughter, the patient has also seemed slightly confused compared to his baseline. He does not have a diagnosis of dementia Related Data Home Medications ?Medication ?Instructions ?Recorded ?Confirmed aspirin 81 mg tablet,delayed 81 mg PO DAILY 03/12/21 10/06/24 release atorvastatin 80 mg tablet 80 mg PO DAILY 03/12/21 10/06/24 omeprazole 20 mg capsule,delayed 20 mg PO QAM 03/12/21 10/06/24 release dapagliflozin propanediol 10 mg 10 mg PO QAM 05/13/22 10/06/24 tablet (Farxiga) cholecalciferol (vitamin D3) 50 50 mcg PO DAILY 05/19/24 10/06/24 mcg (2,000 unit) capsule (Vitamin D3) dulaglutide 0.75 mg/0.5 mL mg subcut 10/06/24 10/06/24 subcutaneous pen injector (Trulicity) Previous Rx's ?Medication ?Instructions ?Recorded ezetimibe 10 mg tablet (Zetia) 10 mg PO DAILY #90 tabs 05/19/24 metoprolol succinate 50 mg 50 mg PO DAILY #90 tabs 10/06/24 tablet,extended release 24 hr Allergies Allergy/AdvReac Type Severity Reaction Status Date / Time No Known Allergies Allergy Mild NONE Verified 10/23/24 18:28 Review of Systems Constitutional: Constitutional: Denies body ache(s), Reports chills, Denies fever(s), Denies headache(s), Reports lethargy, Reports malaise and Reports weakness Eyes: Eyes: Denies blurry vision ENT: Denies vertigo, Denies dizziness and Denies headache(s) Cardiovascular: Cardiovascular: Denies chest pain and Denies dyspnea Respiratory: Respiratory: Denies cough and Denies dyspnea Gastrointestinal: Gastrointestinal: Denies abdominal pain and Denies vomiting Musculoskeletal: Musculoskeletal: Denies back pain Integumentary/Breasts: Skin/Breast: Denies rash Neurologic: Denies vertigo, Denies dizziness, Denies headache(s) and Reports weakness PMFSH Past Medical History Medical History Renal osteodystrophy Stage 3 chronic kidney disease Coronary atherosclerosis Essential hypertension Mixed hyperlipidemia Mild nonproliferative diabetic retinopathy Benign prostatic hyperplasia Gastroesophageal reflux disease Type 2 diabetes mellitus with unspecified complications Atherosclerotic cardiovascular disease Surgical History No pertinent past surgical history Family History Family History Father No problems noted. Mother No problems noted. Social History Social History Household Members: Family Housing: Apartment Alcohol intake: never Patient Tobacco Use Status: Never used Tobacco Advance Directives: No Advance Directives Information Provided: No Do you have a plan to hurt others: No Plan service: No Physical Exam ED Vital Signs: Vital Signs - 24 hr 10/23/24 18:20 10/23/24 18:49 10/23/24 20:38 Temperature 98.1 F 99.2 F Pulse Rate 119 H 102 H Respiratory Rate 18 16 Blood Pressure 129/81 134/81 Pulse Oximetry 98 95 Oxygen Delivery Method Room Air Room Air BMI result Body Mass Index 24.1 Const General: healthy appearing, comfortable, no acute distress, alert and awake Nutritional Appearance: well nourished [facility] Head: Yes normocephalic and Yes atraumatic Eyes Eyelids: Yes eyelids normal Conjunctivae: conjunctivae normal Sclerae: sclerae normal Corneas: corneas normal Pupils: Equal, round and reactive pupils present EOM: EOMs intact bilaterally Neck Neck: Yes full ROM Resp Effort & Inspection: normal respiratory effort, able to speak in complete sentences and not labored Cardio Rate: regular rate Rhythm: regular rhythm GI Inspection: No distended Palpation (GI): Soft to palpation, not firm, nontender, no guarding and not rigid Skin General skin exam: elasticity normal Neuro Cranial nerves: Yes Equal, round and reactive pupils present and Yes Bilaterally intact EOM present Extrem Other: Moving all extremities well without any obvious deformities. No tenderness with manipulation of the shoulders or hips bilaterally. Course Reevaluation(s) Reevaluation #1: The patient's workup largely unremarkable, however he was positive for influenza A. Given the encephalopathy discuss with the hospitalist for admission Time: 23:38 Medications Administered Discontinued Medications Generic Name Dose Route Start Last Admin Trade Name Freq PRN Reason Stop Dose Admin Sodium Chloride 1,000 mls @ 999 mls/hr 10/23/24 20:15 10/23/24 22:46 Ns IV 10/23/24 21:15 Infused .Q1H1M HAIR Infusion Ondansetron HCl 4 mg 10/23/24 19:35 10/23/24 19:50 Ondansetron Odt 4 Mg Tab.Rapdis TRANSLINGU 10/23/24 19:36 4 mg ONCE ONE Administration Ondansetron HCl 4 mg 10/23/24 19:59 10/23/24 20:10 Ondansetron Hcl 4 Mg/2 Ml Vial IVPUSH 10/23/24 20:00 4 mg ONCE ONE Administration Oseltamivir Phosphate 75 mg 10/23/24 20:54 10/23/24 21:08 Oseltamivir Phosphate 75 Mg Capsule PO 10/23/24 20:55 75 mg ONCE ONE Administration Medical Decision Making Medical Decision Making [facility] Narrative: 84-year-old male with past medical history as documented above presents for evaluation after a fall. Given that his is home with the flu and the patient presents with weakness, it is likely that he has influenza as well. However given the fall and the fact that he is in a C-collar we will get a CT scan of the brain and cervical spine. Will check basic labs, chest x-ray, urinalysis and EKG. The patient is currently afebrile and hemodynamically stable Differential Diagnosis Differential Diagnoses: The differential diagnosis associated with the presentation includes Influenza Weakness CVA less likely Intracranial hemorrhage Cervical fracture Cervical strain Lab Data MDM Lab Attestation statement: I reviewed the patient's lab results. Mild leukocytosis to 10.9, no significant anemia. Normal platelet count. The patient has a mild hyperkalemia of 5.2 with an elevated BUN and creatinine compared to his baseline. Likely reflecting a mild degree of dehydration. 10/23/24 19:46 10/23/24 19:46 Labs: Lab Results 10/23/24 10/23/24 10/23/24 Range/Units 19:46 20:58 Unknown WBC 10.9 H (4.8-10.8) X10*3/uL RBC 4.87 (4.60-5.80) X10*6/uL Hgb 15.2 (14.0-18.0) g/dl Hct 44.4 (42.0-52.0) % MCV 91.2 (80.0-98.0) fL MCH 31.2 (27.0-33.0) pg MCHC 34.2 (31.0-36.0) g/dl RDW 13.4 (11.0-16.0) % Plt Count 171 D (160-400) X10*3/uL MPV 9.9 (9.4-12.4) fL Immature Gran % (Auto) 0.6 H (0.0-0.4) % Neut % (Auto) 79.2 H (45-73) % Lymph % (Auto) 8.0 L (20-40) % [place] % (Auto) 11.5 H (2-11) % Eos % (Auto) 0.2 (0-4) % Baso % (Auto) 0.5 (0-2) % Lymph # (Auto) 0.9 L (1.2-4.9) X10*3/uL [place] # (Auto) 1.3 H (0.1-1.2) X10*3/uL Eos # (Auto) 0.0 (0.0-0.4) X10*3/uL Baso # (Auto) 0.1 (0.0-0.2) X10*3/uL Abs Immat Gran (auto) 0.06 H (0.00-0.03) X10*3/uL Absolute Neuts (auto) 8.6 H (2.0-8.3) x10*3/uL Absolute Nucleated RBC 0.000 (0.0-0.012) X10*3/uL Nucleated RBC % (auto) 0.0 (0.0-0.2) /100WBC PT 13.6 H (10.9-12.4) SEC INR 1.2 H (0.9-1.1) Sodium 136 (135-145) mmol/L Potassium 5.2 H D (3.3-5.1) mmol/L Chloride 105 (96-108) mmol/L Carbon Dioxide 19 L (22-29) mmol/L Anion Gap 17 (12-20) BUN 27 H (9-16) mg/dL Creatinine 2.16 H (0.5-1.4) mg/dL Estim Creat Clear Calc 20.8 Estimated GFR 29 Random Glucose 186 H (60-115) mg/dL Calcium 9.9 (8.4-10.2) mg/dL Magnesium 1.7 (1.6-2.6) mg/dL Total Bilirubin 0.4 (0.0-1.0) mg/dL AST 55 H (5-37) U/L ALT 36 (0-40) U/L Alkaline Phosphatase 92 (39-117) U/L Troponin I High Sens 10.0 D (<3.5-35.0) ng/L Total Protein 9.2 H (6.5-8.0) g/dL Albumin 4.1 (3.5-5.0) g/dL Lipase 36 (8-78) U/L Urine Color Yellow Urine Appearance Clear Urine pH 6.0 (5.0-9.0) Ur Specific [place] >= 1.030 H (1.005-1.025) Urine Protein 100 (2+) H (Neg-Trace) mg/dL Urine Glucose (UA) Negative (Negative) mg/dL Urine Ketones Trace (Negative) mg/dL Urine Blood Moderate (2+) H (Negative) Urine Nitrite Negative (Negative) Ur Leukocyte Esterase Negative (Negative) Urine RBC 0-2 (0-2) /HPF Urine WBC 0-5 (0-5) /HPF Ur Squamous Epith Cells 0-2 (0-2) /HPF Urine Bacteria None Seen (None Seen) Hyaline Casts 3-5 (0-2) /LPF Influenza Type A (PCR) POSITIVE A (Negative) Influenza Type B (PCR) NEGATIVE (Negative) RSV RNA Qual (PCR) NEGATIVE (Negative) SARS-CoV-2 RNA (RT-PCR) NEGATIVE (Negative) Radiology Impression Discussion of test interpretation with radiology: I have reviewed the radiologist's reading. Radiologist Impression: Findings: Heart size is normal. Stable chronic reticular changes in both lungs. No consolidation, significant pleural effusion or pneumothorax. No acute fracture. IMPRESSION: 1. No acute findings. This document has been electronically signed by: Chhaya Clarke MD on 10/23/2024 22:38:30 Findings: No intra-axial mass, midline shift, hydrocephalus, or acute hemorrhage. Mild atrophy. Nonspecific supratentorial white matter hypodensities most suggestive of chronic small-vessel ischemic changes. Atherosclerotic vascular disease. Punctate bilateral basal ganglia calcifications. There is no sinus or mastoid fluid. The orbits are unremarkable. No skull fracture. IMPRESSION: 1. No acute intracranial findings. Findings: Vertebral alignment is within normal limits. Vertebral body height is maintained. No acute fracture in the cervical spine. Craniocervical junction is intact. Multilevel degenerative changes from C4-5 to C6-7 and at C1-2. Multilevel facet arthropathy. Moderate left and mild right foraminal stenosis at C4-5. Severe bilateral foraminal stenosis at C5-6. Moderate left and mild right foraminal stenosis at C6-7. Prevertebral soft tissues within normal limits. Soft tissues of the neck are within normal limits. Bilateral apical pleural-parenchymal thickening. IMPRESSION: 1. No acute findings. 2. Multilevel degenerative changes and foraminal stenosis as described. This document has been electronically signed by: Chhaya Clarke MD on 10/23/2024 21:45:56 Discharge Plan Discharge Clinical Impression: Influenza A, Encephalopathy Patient Disposition: Admitted As Inpatient Prescriptions: No Action omeprazole 20 mg capsule,delayed release(DR/EC) 20 mg PO QAM aspirin 81 mg tablet,delayed release (DR/EC) 81 mg PO DAILY atorvastatin 80 mg tablet 80 mg PO DAILY Farxiga 10 mg tablet 10 mg PO QAM cholecalciferol (vitamin D3) [Vitamin D3] 50 mcg (2,000 unit) capsule 50 mcg PO DAILY ezetimibe [Zetia] 10 mg tablet 10 mg PO DAILY Qty: 90 3RF Rx Instructions: New Cholesterol medication. Take in addition to Atorvastatin Trulicity 0.75 mg/0.5 mL pen injector subcut metoprolol succinate 50 mg tablet extended release 24 hr 50 mg PO DAILY Qty: 90 1RF Rx Instructions: dose increase Print Language: Scottish
[2024-10-23 19:50] LABS: MANUAL DIFF FLAG NO
[2024-10-23] MEDS: Ondansetron ODT 4 MG TAB.RAPDIS TRANSLINGU (19:50)
--- NOTE | 2024-10-23 19:56 | PC.NURSE ---
pt medicated according to nov. pt began vomiting again immediately after zofran sublingual administration moe sly made aware
[2024-10-23 19:57] LABS: INTERNATIONAL NORM RATIO 1.2 (0.9-1.1); Prothrombin Time 13.6 SEC (10.9-12.4)
[2024-10-23 20:10] LABS: Alanine Aminotransferase 36 U/L (0-40); Albumin Level 4.1 g/dL (3.5-5.0); Alkaline Phosphatase 92 U/L (39-117); Anion Gap 17 (12-20); Aspartate Amino Transferase 55 U/L (5-37); Bilirubin Total 0.4 mg/dL (0.0-1.0); Blood Urea Nitrogen 27 mg/dL (9-16); Calcium 9.9 mg/dL (8.4-10.2); Carbon Dioxide 19 mmol/L (22-29); Chloride 105 mmol/L (96-108); Creatinine Clr Calc Pharmacy 20.8; Estimated Glomerular Filt Rate 29; Glucose Random 186 mg/dL (60-115); Lipase 36 U/L (8-78); Magnesium 1.7 mg/dL (1.6-2.6); Potassium 5.2 mmol/L (3.3-5.1); Sodium 136 mmol/L (135-145); Total Protein 9.2 g/dL (6.5-8.0)
[2024-10-23] MEDS: ondansetron HCL 4 MG/2 ML VIAL IVPUSH (20:10)
[2024-10-23 20:26] LABS: Basophils Absolute Auto 0.1 X10*3/uL (0.0-0.2); Basophils Percent Auto 0.5 % (0-2); Eosinophils Percent Auto 0.2 % (0-4); Hematocrit 44.4 % (42.0-52.0); Hemoglobin 15.2 g/dl (14.0-18.0); Imm Gran Abs Auto 0.06 X10*3/uL (0.00-0.03); Imm Gran Pct Auto 0.6 % (0.0-0.4); Lymphocytes Absolute Auto 0.9 X10*3/uL (1.2-4.9); Mean Corpuscular HGB Conc 34.2 g/dl (31.0-36.0); Mean Corpuscular Hemoglobin 31.2 pg (27.0-33.0); Mean Corpuscular Volume 91.2 fL (80.0-98.0); Mean Platelet Volume 9.9 fL (9.4-12.4); Monocytes Absolute Auto 1.3 X10*3/uL (0.1-1.2); Monocytes Percent Auto 11.5 % (2-11); Neutrophils Absolute Auto 8.6 x10*3/uL (2.0-8.3); Neutrophils Percent Auto 79.2 % (45-73); Platelet Count 171 X10*3/uL (160-400); Red Blood Count 4.87 X10*6/uL (4.60-5.80); Red Cell Distribution Width 13.4 % (11.0-16.0); White Blood Count 10.9 X10*3/uL (4.8-10.8)
[2024-10-23] MEDS: 0.9 % Sodium Chloride 1,000 ML 999 ML IV (20:36)
[2024-10-23 20:38] VITALS: BP 134/81; PULSE 102; RESP 16; O2SAT 95
[2024-10-23 20:41] LABS: Influenza A PCR POSITIVE (Negative); Influenza B PCR NEGATIVE (Negative); Resp Syncy Virus RNA Qual PCR NEGATIVE (Negative); SARS COV2 PCR INHOUSE NEGATIVE (Negative)
[2024-10-23] MEDS: Oseltamivir Phosphate 75 MG CAPSULE PO (21:08)
--- NOTE | 2024-10-23 21:13 | PC.NURSE ---
swallow eval passed pt medicated according to mar
[2024-10-23 21:14] LABS: Appearance Urine Clear; Color Urine Yellow; Glucose Urine UA Negative (Negative); Leukocyte Esterase Urine Negative (Negative); Nitrite Urine Negative (Negative); Specific Gravity - Urine >= 1.030 (1.005-1.025); UMIC TRIGGER UACC YES; Urine Blood Moderate (2+) (Negative); Urine Ketones Trace mg/dL (Negative); Urine Protein 100 (2+) mg/dL (Neg-Trace)
[2024-10-23 21:20] LABS: Bacteria Urine None Seen (None Seen); RBC Urine 0-2 /HPF (0-2); Squamous Epithelial Cell Urine 0-2 /HPF (0-2); WBC Urine 0-5 /HPF (0-5)
--- NOTE | 2024-10-23 23:26 | PM.IMHP ---
History of Present Illness Date of Service: 10/23/24 Attending physician on admission: Fay Walsh Chief Complaint: weakness Patient is an 84-year-old male with a past medical history significant for insulin-dependent diabetes, HTN, HLD, coronary artery disease, GERD, ?memory issues, who presents to the ED due to weakness and a fall earlier today. He reports that he was feeling weak and gradually brought himself to the floor. No head strike or loss of consciousness. Denies any other symptoms including cough, runny nose, congestion, fever, chills, nausea, vomiting, abdominal pain or urinary symptoms. He reports that his has the flu and he has been exposed to this. He also feels that he is slightly confused as he is unable to remember certain things such as the date. Review of Systems Constitutional: Constitutional: Denies chills, Denies fatigue, Denies fever(s) and Denies headache(s) Eyes: Eyes: Denies change in vision and Denies photophobia ENT: Denies headache(s), Denies nasal congestion, Denies nasal discharge and Denies sore throat Cardiovascular: Cardiovascular: Denies chest pain, Denies rapid heart rate, Denies leg edema, Denies lightheadedness and Denies dyspnea Respiratory: Respiratory: Denies chest congestion, Denies cough, Denies dyspnea and Denies wheezing Gastrointestinal: Gastrointestinal: Denies abdominal pain, Denies diarrhea, Denies nausea and Denies vomiting Genitourinary: Genitourinary: Denies oliguria, Denies difficulty urinating, Denies dysuria and Denies urinary urgency Musculoskeletal: Musculoskeletal: Denies myalgias Integumentary/Breasts: Skin/Breast: Denies rash Neurologic: Reports confusion, Denies headache(s) and Reports memory loss Psychiatric: Psychiatric: Reports confusion and Reports memory loss Endocrine: Endocrine: Denies fatigue Hematologic/Lymphatic: Hematologic/Lymphatic: Denies easy bleeding and Denies easy bruising Allergic/Immunologic: Allergic/Immunologic: Denies wheezing [facility] Medical History Renal osteodystrophy Stage 3 chronic kidney disease Coronary atherosclerosis Essential hypertension Mixed hyperlipidemia Mild nonproliferative diabetic retinopathy Benign prostatic hyperplasia Gastroesophageal reflux disease Type 2 diabetes mellitus with unspecified complications Atherosclerotic cardiovascular disease Functional capacity: independent ambulation Family History Father No problems noted. Mother No problems noted. Surgical History No pertinent past surgical history Social History Household Members: Family Housing: Apartment Alcohol intake: never Patient Tobacco Use Status: Never used Tobacco Smoked in Last 30 Days: No Use of substances other than those prescribed or required for medical reasons: No Advance Directives: No Advance Directives Information Provided: No Do you have a plan to hurt others: No Plan service: No Narrative: No smoking, alcohol or drug use Meds Allergies Allergy/AdvReac Type Severity Reaction Status Date / Time No Known Allergies Allergy Mild NONE Verified 10/23/24 18:28 Active Medications: Current Medications Acetaminophen (Acetaminophen 325 Mg Tablet) 650 mg PO Q6H PRN PRN Reason: Pain, Mild 1-3,fever,headache Calcium Carbonate (Calcium Carbonate 750 Mg Tab.Chew) 750 mg PO Q4H PRN PRN Reason: Heartburn Enoxaparin Sodium (Enoxaparin Sodium 30 Mg/0.3 Ml Syringe) 30 mg SUBCUT Q24H [facility] Magnesium Hydroxide (Milk Of Magnesia 30 Ml Oral.Susp) 30 ml PO DAILY PRN PRN Reason: Constipation Melatonin (Melatonin 3 Mg Tablet) 6 mg PO BEDTIME PRN PRN Reason: Insomnia Ondansetron HCl (Ondansetron Hcl 4 Mg/2 Ml Vial) 4 mg IVPUSH Q8H PRN PRN Reason: Nausea and Vomiting Oseltamivir Phosphate (Oseltamivir Phosphate 30 Mg Capsule) 30 mg PO DAILY [facility] Stop: 10/27/24 09:01 Sodium Chloride (0.9 % Sodium Chloride Flush 3 Ml Syringe) 3 ml IVFLUSH QSHIFT [facility] Home Medications ?Medication ?Instructions ?Recorded ?Confirmed ?Last Taken ?Type aspirin 81 mg tablet,delayed 81 mg PO DAILY 03/12/21 10/06/24 07/22/23 History release atorvastatin 80 mg tablet 80 mg PO DAILY 03/12/21 10/06/24 07/22/23 History omeprazole 20 mg capsule,delayed 20 mg PO QAM 03/12/21 10/06/24 07/22/23 History release dapagliflozin propanediol 10 mg 10 mg PO QAM 05/13/22 10/06/24 07/22/23 History tablet (Farxiga) cholecalciferol (vitamin D3) 50 50 mcg PO DAILY 05/19/24 10/06/24 Unknown History mcg (2,000 unit) capsule (Vitamin D3) dulaglutide 0.75 mg/0.5 mL mg subcut 10/06/24 10/06/24 Unknown History [facility] Physical Exam Vital Signs and Narrative: Vital Signs: Last Vital Signs Temp 99.2 F 10/23/24 18:49 Pulse 102 H 10/23/24 20:38 Resp 16 10/23/24 20:38 BP 134/81 10/23/24 20:38 Pulse Ox 95 10/23/24 20:38 O2 Del Method Room Air 10/23/24 20:38 BMI result Body Mass Index 24.1 General: Alert and oriented to person and place, unaware of year, no acute distress, certified court/medical interpreter present Resp: CTA bilaterally CVS: S1, S2, RRR GI: +BS, NT, no distention Skin: Warm, dry Neuro: Cranial nerves II-XII grossly intact bilaterally. Motor grossly intact bilaterally Extremities: No lower extremity edema Psych: Appropriate affect Const: General: confusion Orientation/consciousness: confusion Eyes: Direct Ophthalmoscopy: No photophobia Neuro: General: confusion Results Labs 10/23/24 19:46 10/23/24 19:46 Labs: Laboratory Results - last 24 hr 10/23/24 10/23/24 10/23/24 19:46 20:58 Unknown MCV 91.2 MCH 31.2 MCHC 34.2 RDW 13.4 Plt Count 171 D MPV 9.9 Immature Gran % (Auto) 0.6 H Neut % (Auto) 79.2 H Lymph % (Auto) 8.0 L [place] % (Auto) 11.5 H Eos % (Auto) 0.2 Baso % (Auto) 0.5 Lymph # (Auto) 0.9 L [place] # (Auto) 1.3 H Eos # (Auto) 0.0 Baso # (Auto) 0.1 Abs Immat Gran (auto) 0.06 H Absolute Neuts (auto) 8.6 H Absolute Nucleated RBC 0.000 Nucleated RBC % (auto) 0.0 PT 13.6 H INR 1.2 H Anion Gap 17 Estim Creat Clear Calc 20.8 Estimated GFR 29 Random Glucose 186 H Calcium 9.9 Magnesium 1.7 Total Bilirubin 0.4 AST 55 H ALT 36 Alkaline Phosphatase 92 Total Protein 9.2 H Albumin 4.1 Lipase 36 Urine Color Yellow Urine Appearance Clear Urine pH 6.0 Ur Specific [place] >= 1.030 H Urine Protein 100 (2+) H Urine Glucose (UA) Negative Urine Ketones Trace Urine Blood Moderate (2+) H Urine Nitrite Negative Ur Leukocyte Esterase Negative Urine RBC 0-2 Urine WBC 0-5 Ur Squamous Epith Cells 0-2 Urine Bacteria None Seen Hyaline Casts 3-5 Influenza Type A (PCR) POSITIVE A Influenza Type B (PCR) NEGATIVE RSV RNA Qual (PCR) NEGATIVE SARS-CoV-2 RNA (RT-PCR) NEGATIVE Assessment and Plan (1) Acute metabolic encephalopathy: Status: Acute (2) Influenza A: Status: Acute (3) Hyperkalemia: Status: Acute (4) CKD (chronic kidney disease) stage 4, GFR 15-29 ml/min: Status: Acute Plan Patient is an 84-year-old male with a past medical history significant for insulin-dependent diabetes, HTN, HLD, coronary artery disease, GERD, ?memory issues, who presents to the ED due to weakness and a fall earlier today. He later clarified that he did not fall, did not lose consciousness or have a head strike, he was feeling weak and lowered himself to the ground. acute metabolic encephalopathy secondary to influenza A - WBC 10.9, tachycardic, lactic acid and blood cultures x2 pending, not severe sepsis - CT head and C-spine negative - CXR negative - Flu A + - UA negative - given 1L IVF in ED, additional 500ml - improvement of mentation - tamiflu - PT eval due to weakness - monitor CBC and BMP CKD 4 - Cr 2.16, near baseline - given 1L IVF in ED. additional 500ml - monitor BMP hyperkalemia, mild - K 5.4, likely due to dehydration - given 1L IVF in ED, additional 500ml - monitor BMP IDDM - sliding scale insulin - diabetic diet HTN - continue home meds HLD - continue home meds CAD - continue home meds med rec not complete upon admission DNR/DNI due to previous hospitalization, due to encephalopathy cannot address at this time and daughter did not answer phone call, re-address in AM VTE prophy: lovenox Pt with acute metabolic encephalopathy secondary to flu A, requiring admission for observation due to weakness. Quality Stroke Does the patient have a stroke diagnosis?: No VTE Prior VTE?: No VTE Risk Level:: Medical - moderate - high VTE Device Contraindication: Treatment Not Indicated VTE Drug Contraindication: N/A - Med Ordered
[2024-10-24] VITALS (8 sets, daily range): BP systolic 104–135; BP diastolic 69–73; PULSE 76–101; RESP 12–20; TEMP 36.4–38.8; O2SAT 95–100; BMI 24.1; BMI 23.3
--- NOTE | 2024-10-24 00:17 | PC.NURSE ---
oral temp of 99.9 this rn made Marybel STEPHON aware no new orders at this time
[2024-10-24] MEDS: Lactated Ringers 500 ML IV (01:09)
[2024-10-24] MEDS: Enoxaparin Sodium 30 MG/0.3 ML SYRINGE SUBCUT ×2 (01:10→22:23)
--- NOTE | 2024-10-24 01:15 | PC.NURSE ---
pt moved from kwong bed assignment to ed 6 pt daughter at bedside
--- NOTE | 2024-10-24 05:08 | PC.NURSE ---
this rn performed med reconciliation at bedside pt daughter confirmed home medications unable to confirm trulicity during med rec cupola charger made aware
[2024-10-24 05:14] LABS: MANUAL DIFF FLAG NO
[2024-10-24 05:15] LABS: Basophils Percent Auto 0.3 % (0-2); Hematocrit 41.9 % (42.0-52.0); Hemoglobin 14.8 g/dl (14.0-18.0); Imm Gran Abs Auto 0.04 X10*3/uL (0.00-0.03); Imm Gran Pct Auto 0.4 % (0.0-0.4); Lymphocytes Absolute Auto 1.8 X10*3/uL (1.2-4.9); Lymphocytes Percent Auto 17.7 % (20-40); Mean Corpuscular HGB Conc 35.3 g/dl (31.0-36.0); Mean Corpuscular Hemoglobin 31.7 pg (27.0-33.0); Mean Corpuscular Volume 89.7 fL (80.0-98.0); Mean Platelet Volume 9.8 fL (9.4-12.4); Monocytes Absolute Auto 1.3 X10*3/uL (0.1-1.2); Monocytes Percent Auto 12.4 % (2-11); Neutrophils Absolute Auto 7.2 x10*3/uL (2.0-8.3); Neutrophils Percent Auto 69.2 % (45-73); Platelet Count 143 X10*3/uL (160-400); Red Blood Count 4.67 X10*6/uL (4.60-5.80); Red Cell Distribution Width 13.4 % (11.0-16.0); White Blood Count 10.3 X10*3/uL (4.8-10.8)
[2024-10-24 05:32] LABS: Anion Gap 17 (12-20); Blood Urea Nitrogen 29 mg/dL (9-16); Carbon Dioxide 18 mmol/L (22-29); Chloride 106 mmol/L (96-108); Creatinine Clr Calc Pharmacy 24.7; Estimated Glomerular Filt Rate 36; Glucose Random 111 mg/dL (60-115); Potassium 4.6 mmol/L (3.3-5.1); Sodium 136 mmol/L (135-145)
[2024-10-24 06:04] LABS: Glucose, Whole Blood 108 mg/dL (60-115)
--- NOTE | 2024-10-24 06:17 | PC.NURSE ---
man pimentel made this rn aware of oral temp of 101.8 dr bowen made aware no new orders
[2024-10-24] MEDS: Acetaminophen 325 MG TABLET 650 MG PO ×2 (06:24→21:05)
[2024-10-24 07:37] LABS: Glucose, Whole Blood 115 mg/dL (60-115)
[2024-10-24] MEDS: 0.9 % Sodium Chloride Flush 3 ML SYRINGE IVFLUSH ×2 (07:38→18:34)
--- NOTE | 2024-10-24 08:08 | PHA.MEDREC ---
Pharmacy Consult ? Medication Reconciliation Pharmacy has reviewed the medication reconciliation completed by nursing. Spoke with patient and family at bedside. Pt takes Trulicity on Wednesday, last took home medications on 10/22/24.
--- NOTE | 2024-10-24 09:25 | PC.NURSE ---
PT at bedside for eval.
--- NOTE | 2024-10-24 09:43 | P.PNIM_ITS ---
Subjective Subjective Date of Service: 10/24/24 Review of Systems Follow up Flu no sob confusion is less Physical Exam 2 Vital Signs: Vital Signs: Last Vital Signs Temp 99.4 F 10/24/24 07:38 Pulse 101 H 10/24/24 06:09 Resp 14 10/24/24 06:09 BP 111/71 10/24/24 06:09 Pulse Ox 96 10/24/24 06:09 O2 Del Method Room Air 10/24/24 06:09 BMI result Body Mass Index 24.1 Appearing in no acute distress lung sounds are clear to auscultation heart regular rate rhythm, clear S1, S2 positive bowel sounds, abdomen is soft, nontender neuro patient is alert x3, no focal deficits Objective Data Active Medications Acetaminophen (Acetaminophen 325 Mg Tablet) 650 mg PO Q6H PRN PRN Reason: Pain, Mild 1-3,fever,headache Last Admin: 10/24/24 06:24 Dose: 650 mg Documented By: EDUIN Calcium Carbonate (Calcium Carbonate 750 Mg Tab.Chew) 750 mg PO Q4H PRN PRN Reason: Heartburn Dextrose (Dextrose 50 % 25 Gm/50 Ml Syringe) 25 gm IVPUSH Q15M PRN; Protocol PRN Reason: per Hypoglycemia Standing Ord. Enoxaparin Sodium (Enoxaparin Sodium 30 Mg/0.3 Ml Syringe) 30 mg SUBCUT Q24H [facility] Last Admin: 10/24/24 01:10 Dose: 30 mg Documented By: EDUIN Glucose (Glucose Gel 15 Gm Gel..Gram.) 15 gm PO Q15M PRN; Protocol PRN Reason: per Hypoglycemia Standing Ord. Insulin Human Lispro (Insulin Lispro 100 Unit/Ml 3 Ml Vial) 0 unit SUBCUT QIDACHS [facility]; Protocol Last Admin: 10/24/24 07:39 Dose: Not Given Documented By: JEEVAN Non-Admin Reason: No Insulin Coverage Comments: POC 115 Magnesium Hydroxide (Milk Of Magnesia 30 Ml Oral.Susp) 30 ml PO DAILY PRN PRN Reason: Constipation Melatonin (Melatonin 3 Mg Tablet) 6 mg PO BEDTIME PRN PRN Reason: Insomnia Ondansetron HCl (Ondansetron Hcl 4 Mg/2 Ml Vial) 4 mg IVPUSH Q8H PRN PRN Reason: Nausea and Vomiting Oseltamivir Phosphate (Oseltamivir Phosphate 30 Mg Capsule) 30 mg PO DAILY [facility] Stop: 10/27/24 09:01 Sodium Chloride (0.9 % Sodium Chloride Flush 3 Ml Syringe) 3 ml IVFLUSH QSHIFT [facility] Last Admin: 10/24/24 07:38 Dose: 3 ml Documented By: JEEVAN Labs 10/24/24 04:57 10/24/24 04:57 Labs: Laboratory Results - last 24 hr 10/23/24 10/23/24 10/23/24 19:46 20:58 Unknown MCV 91.2 MCH 31.2 MCHC 34.2 RDW 13.4 Plt Count 171 D MPV 9.9 Immature Gran % (Auto) 0.6 H Neut % (Auto) 79.2 H Lymph % (Auto) 8.0 L Harding % (Auto) 11.5 H Eos % (Auto) 0.2 Baso % (Auto) 0.5 Lymph # (Auto) 0.9 L Harding # (Auto) 1.3 H Eos # (Auto) 0.0 Baso # (Auto) 0.1 Abs Immat Gran (auto) 0.06 H Absolute Neuts (auto) 8.6 H Absolute Nucleated RBC 0.000 Nucleated RBC % (auto) 0.0 PT 13.6 H INR 1.2 H Anion Gap 17 Estim Creat Clear Calc 20.8 Estimated GFR 29 POC Glucose Random Glucose 186 H Calcium 9.9 Magnesium 1.7 Total Bilirubin 0.4 AST 55 H ALT 36 Alkaline Phosphatase 92 Total Protein 9.2 H Albumin 4.1 Lipase 36 Urine Color Yellow Urine Appearance Clear Urine pH 6.0 Ur Specific [place] >= 1.030 H Urine Protein 100 (2+) H Urine Glucose (UA) Negative Urine Ketones Trace Urine Blood Moderate (2+) H Urine Nitrite Negative Ur Leukocyte Esterase Negative Urine RBC 0-2 Urine WBC 0-5 Ur Squamous Epith Cells 0-2 Urine Bacteria None Seen Hyaline Casts 3-5 Influenza Type A (PCR) POSITIVE A Influenza Type B (PCR) NEGATIVE RSV RNA Qual (PCR) NEGATIVE SARS-CoV-2 RNA (RT-PCR) NEGATIVE 10/24/24 10/24/24 10/24/24 04:57 05:58 07:27 MCV 89.7 MCH 31.7 MCHC 35.3 RDW 13.4 Plt Count 143 L MPV 9.8 Immature Gran % (Auto) 0.4 Neut % (Auto) 69.2 Lymph % (Auto) 17.7 L Harding % (Auto) 12.4 H Eos % (Auto) 0.0 Baso % (Auto) 0.3 Lymph # (Auto) 1.8 Harding # (Auto) 1.3 H Eos # (Auto) 0.0 Baso # (Auto) 0.0 Abs Immat Gran (auto) 0.04 H Absolute Neuts (auto) 7.2 Absolute Nucleated RBC 0.000 Nucleated RBC % (auto) 0.0 PT INR Anion Gap 17 Estim Creat Clear Calc 24.7 Estimated GFR 36 POC Glucose 108 115 Random Glucose 111 Calcium 9.0 D Magnesium Total Bilirubin AST ALT Alkaline Phosphatase Total Protein Albumin Lipase Urine Color Urine Appearance Urine pH Ur Specific [place] Urine Protein Urine Glucose (UA) Urine Ketones Urine Blood Urine Nitrite Ur Leukocyte Esterase Urine RBC Urine WBC Ur Squamous Epith Cells Urine Bacteria Hyaline Casts Influenza Type A (PCR) Influenza Type B (PCR) RSV RNA Qual (PCR) SARS-CoV-2 RNA (RT-PCR) Assessment and Plan (1) Essential hypertension: Status: Acute Plan Patient is an 84-year-old male with a past medical history significant for insulin-dependent diabetes, HTN, HLD, coronary artery disease, GERD, ?memory issues, who presents to the ED due to weakness and a fall earlier today. He later clarified that he did not fall, did not lose consciousness or have a head strike, he was feeling weak and lowered himself to the ground. Acute metabolic encephalopathy secondary to influenza A CT head and C-spine negative CXR negative for consolidaiton Flu A + given 1L IVF in ED, additional 500ml tamiflu PT eval due to weakness CKD 4 Cr 1.82, near baseline s/p IV fluids monitor BMP Hyperkalemia,Resolved likely due to dehydration s/p IV fluids monitor BMP IDDM sliding scale insulin diabetic diet HTN continue home meds HLD continue home meds CAD continue home meds DNR/DNI due to previous hospitalization, due to encephalopathy cannot address at this time and daughter did not answer phone call, re-address in AM VTE prophy: [employer] Stroke Does the patient have a stroke diagnosis?: No VTE Prior VTE?: No VTE Risk Level:: Medical - moderate - high VTE Device Contraindication: Treatment Not Indicated VTE Drug Contraindication: N/A - Med Ordered
[2024-10-24] MEDS: Oseltamivir Phosphate 30 MG CAPSULE PO (09:47)
--- NOTE | 2024-10-24 09:53 | PC.NURSE ---
Pts family produces home medications per request of Pharmacy staff. Family reports they are unable to bring in Pts Trulicity. Pharmacy made aware via [employer].
[2024-10-24 11:39] LABS: Glucose, Whole Blood 165 mg/dL (60-115)
[2024-10-24] MEDS: Omeprazole 20 MG CAPSULE.DR PO (11:51)
[2024-10-24] MEDS: Insulin Lispro 100 UNIT/ML 3 ML VIAL SUBCUT ×2 (11:51→21:04)
--- NOTE | 2024-10-24 15:37 | MHC.CM.PN ---
PT LIVES WITH FAMILY HAS NO SERVIERS HAS OWN RIDE HOME
[2024-10-24 18:03] LABS: Glucose, Whole Blood 107 mg/dL (60-115)
[2024-10-24 20:37] LABS: Glucose, Whole Blood 231 mg/dL (60-115)
[2024-10-25] MEDS: Omeprazole 20 MG CAPSULE.DR PO (06:03)
[2024-10-25 07:18] VITALS: BP 109/68; PULSE 87; RESP 16; TEMP 37.2; O2SAT 95
[2024-10-25 07:40] LABS: Glucose, Whole Blood 92 mg/dL (60-115)
--- NOTE | 2024-10-25 08:38 | P.DS_ITS ---
DS: Providers Provider Date of Service: 10/25/24 Date of admission: 10/23/24 22:54 Date of discharge: 10/25/24 Primary care physician: Anjali Car MD DS: Diagnosis Discharge Diagnosis (1) Essential hypertension: Status: Acute DS: Summary Hospital Course Hospital Course: History and physical as per admitting provider. Patient is an 84-year-old male with a past medical history significant for insulin-dependent diabetes, HTN, HLD, coronary artery disease, GERD, ?memory issues, who presents to the ED due to weakness and a fall earlier today. He reports that he was feeling weak and gradually brought himself to the floor. No head strike or loss of consciousness. Denies any other symptoms including cough, runny nose, congestion, fever, chills, nausea, vomiting, abdominal pain or urinary symptoms. He reports that his has the flu and he has been exposed to this. He also feels that he is slightly confused as he is unable to remember certain things such as the date. 84-year-old man treated for acute metabolic encephalopathy secondary to influenza A. CT head and spine were both negative, chest x-ray negative for consolidation. Patient treated with IV fluids and Tamiflu. Evaluated by Physical therapy due to weakness with recommendation for home. Patient this time feels well, not hypoxic and not on oxygen. CKD stage 4. Near baseline, status post IV fluids Hyperkalemia. Resolve, status post IV fluids Diabetes mellitus type 2. Continue home medications Hypertension. Continue home medications Hyperlipidemia. Continue home medications Coronary artery disease. Continue home medications Time Attestation Discharge Coordination Time (in mins): 38 Quality: Safe Use of Opioids Does Pt have an Active Cancer Diagnosis on the Problem List?: No Quality: Stroke Does the patient have a stroke diagnosis?: No Physical Exam Vital Signs: Vital Signs: Last Vital Signs Temp 98.9 F 10/25/24 07:18 Pulse 87 10/25/24 07:18 Resp 16 10/25/24 07:18 BP 109/68 10/25/24 07:18 Pulse Ox 95 10/25/24 07:18 O2 Del Method Room Air 10/25/24 07:18 BMI result Body Mass Index 23.3 Appearing in no acute distress head is normocephalic atraumatic eyes pupils are PERRLA sclera is anicteric mouth throat mucous membranes are intact and moist neck is supple no lymphadenopathy, no JVD noted lung sounds are clear to auscultation heart regular rate rhythm, clear S1, S2 positive bowel sounds, abdomen is soft, nontender neuro patient is alert x3, no focal deficits DS: Data Data Completed and Pending Labs on day of discharge: Laboratory Results - last 24 hr 10/24/24 10/24/24 10/24/24 11:32 17:58 20:27 POC Glucose 165 H 107 231 H 10/25/24 07:21 POC Glucose 92 Discharge Plan Discharge Anticipated Discharge Date/Time: 10/25/24 08:35 Patient Disposition: Home, Self-Care Discharge Diagnosis: Acute metabolic encephalopathy Influenza a Hyperkalemia Referrals: Anjali Jacome MD [Primary Care Provider] - 1 Week Discharge Medications: New oseltamivir 30 mg Capsule 30 mg PO DAILY Qty: 3 0RF Continued omeprazole 20 mg capsule,delayed release(DR/EC) 20 mg PO QAM aspirin 81 mg tablet,delayed release (DR/EC) 81 mg PO DAILY atorvastatin 80 mg tablet 80 mg PO DAILY Farxiga 10 mg tablet 10 mg PO QAM cholecalciferol (vitamin D3) [Vitamin D3] 50 mcg (2,000 unit) capsule 50 mcg PO DAILY ezetimibe [Zetia] 10 mg tablet 10 mg PO DAILY Qty: 90 3RF Rx Instructions: New Cholesterol medication. Take in addition to Atorvastatin Trulicity 0.75 mg/0.5 mL pen injector 0.75 mg subcut TU@0900 metoprolol succinate 50 mg tablet extended release 24 hr 50 mg PO DAILY Qty: 90 1RF Rx Instructions: dose increase Discharge Orders: Discharge Order (Routine); Ordered 10/25/24 Ordered By: Lina León Diet: Advance to usual diet Activity on Discharge: As tolerated Stand Alone Forms: Patient Portal Discharge page Print Language: Burmese Care Plan Goals: Complete Tamiflu Drink plenty of fluids and rest Health Concerns: Acute metabolic encephalopathy Influenza a Hyperkalemia Plan of Treatment: Follow-up with primary care provider as needed Take all medications as prescribed Assessment: See discharge summary Patient Instructions: Influenza (DC)
[2024-10-25] MEDS: Metoprolol Succinate ER 50 MG TAB.ER.24H PO (08:41)
[2024-10-25] MEDS: Aspirin Enteric Coated 81 MG TABLET.DR PO (08:41)
[2024-10-25] MEDS: Oseltamivir Phosphate 30 MG CAPSULE PO (08:41)
[2024-10-25] MEDS: Cholecalciferol (Vitamin D3) 25 MCG TABLET 50 MCG PO (08:41)
[2024-10-25] MEDS: Ezetimibe 10 MG TABLET PO (08:41)
[2024-10-25] MEDS: Atorvastatin Calcium 80 MG TABLET PO (08:41)
[2024-10-25] MEDS: 0.9 % Sodium Chloride Flush 3 ML SYRINGE IVFLUSH (08:43)
--- NOTE | 2024-10-25 08:43 | MHC.CM.PN ---
pt dcd home self care
== END 2024-10-25 09:56 | disposition home or self-care (01) ==
LOC: HO.ED 23:39 → HO.EDOVER 10-24 00:57 → HO.S3 10-24 19:01
PROVIDERS: Physician Assistant; Admitting Provider Student in an Organized Health Care Education/Training Program; Emergency Provider Emergency Medicine; PCP Internal Medicine; Visit Provider Nurse Practitioner Acute Care
DX: G93.41 Metabolic encephalopathy (principal); J10.1 Influenza due to other identified influenza virus with other respiratory manifestations; E87.5 Hyperkalemia; R42 Dizziness and giddiness; R53.1 Weakness; K21.9 Gastro-esophageal reflux disease without esophagitis; E11.22 Type 2 diabetes mellitus with diabetic chronic kidney disease; I12.9 Hypertensive chronic kidney disease with stage 1 through stage 4 chronic kidney disease, or unspecified chronic kidney disease; N18.4 Chronic kidney disease, stage 4 (severe); I25.10 Atherosclerotic heart disease of native coronary artery without angina pectoris; Z79.899 Other long term (current) drug therapy
CPT/HCPCS: 0241U; 36415; 70450; 71045; 72125; 80048; 80053; 81001; 82947; 83690; 83735; 84484; 85025; 85610; 93005; 96361; 96372; 96374; 97162; 99221; 99285; J1650; J2405; J7120

== ENCOUNTER → 2024-10-23 18:46 | Outpatient (BNV) | payer OTHER, SELFPAY | PROVIDERS: Emergency Provider Emergency Medicine; Visit Provider Physician Assistant | DX: I12.9 Hypertensive chronic kidney disease with stage 1 through stage 4 chronic kidney disease, or unspecified chronic kidney disease (principal); N18.4 Chronic kidney disease, stage 4 (severe) | CPT/HCPCS: 99223; 99232; 99239 ==

== ENCOUNTER → 2024-10-23 18:50 | Outpatient (BNV) | payer OTHER, SELFPAY | PROVIDERS: Admitting Provider Student in an Organized Health Care Education/Training Program; Emergency Provider Emergency Medicine; PCP Internal Medicine; Visit Provider Internal Medicine | DX: R00.0 Tachycardia, unspecified (principal) | CPT/HCPCS: 93010 ==

== ENCOUNTER → 2024-10-23 18:50 | Outpatient (BNV) | payer OTHER, SELFPAY | PROVIDERS: Emergency Provider Emergency Medicine; Visit Provider Specialist | DX: J84.89 Other specified interstitial pulmonary diseases (principal); R53.1 Weakness; G23.8 Other specified degenerative diseases of basal ganglia; I70.90 Unspecified atherosclerosis; M48.02 Spinal stenosis, cervical region | CPT/HCPCS: 70450; 71045; 72125 ==

== ENCOUNTER → 2025-01-18 08:15 | Outpatient (REF) | payer OTHER, SELFPAY ==
--- NOTE | ~2025-01-18 | NM_ITS ---
Lexiscan Myocardial perfusion study Indication: Chest pain to evaluate for myocardial ischemia Technique: The patient was brought in for a Lexiscan perfusion study on January 18, 2025 and was injected 0.4 mg of Lexiscan intravenously. Within a minute of this injection 25 mCi of sestamibi was given intravenously. Images were obtained using the SPECT gamma camera interlaced with the gating device. Images were obtained in supine position. Resting perfusion study was performed on January 19, 2025. Patient was administered 25 mCi of sestamibi intravenously at rest. Images were then obtained in supine position. Images obtained without without CT attenuation. Total DLP 59 mGy-cm. Images were processed with the software and compared side to side in short axis, horizontal long axis and vertical long axis views. Findings: The stress perfusion study showed nonattenuated images show moderately reduced uptake in the basal septum as well as. Moderately reduced uptake in the basal inferior wall of the LV myocardium. The gated study shows normal LV systolic function with calculated LVEF of 58%. LV cavity is normal in size. The gated study shows areas wall thickening and contraction of the basal septal segments. Resting study shows nontender images show moderately reduced uptake in the basal septum as well as minimal reduced uptake in the basal inferior wall of the LV myocardium. Gating at rest reveals basal septal wall motion with ejection fraction at 59%. The findings are consistent with fixed defect in the basal septum suggestive of possibly nontransmural infarct with reversible defect in the basal inferior wall ischemia. NM/NM cardiolite stress test Impression: 1. 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 Gated LVEF is 58% 3. Transient ischemic dilatation not present Nondiagnostic changes on EKG. Electronically signed by: Zach Lazar MD 01/20/2025 01:01 PM EDT
--- NOTE | 2025-01-18 08:18 | CA_ITS ---
Acquisition Time: 2025-01-18 08:29:22 Total Exercise Time: 00:02:00 Test Indications: CAD CP Medications: ASA ATORVASTATIN FARXIGA TRULICITY ZETIA METOPROLOL OMEPRAZOLE Protocol: LEXISCAN Max HR: 125 BPM 91% of Pred: 137 BPM Max BP: 120/80 mmHG Max Work Load: 1.0 METS Pharmacological stress test with Lexiscan while pt swings his legs in chair, with reports of feeling fatigues and SOB, without any arrythmias, with normotensive response to injection. Nondiagnostic EKG for ischemia. In recovery, pt treated with IVP Aminophylline 75 mg to reverse Lexiscan after which pt feeling back to baseline. Nuclear images pending. Test reviewed with Dr. Lazar. Referred By: Brandie Amaro Electronically Signed By: Vamsi Bryant
--- OUTSIDE RECORDS SUMMARY | 2025-01-18 08:24 | XMS_ITS | Encounter Summary ---
Author Organization [employer] Address [address] [place] [address] Care Team Providers Care Furnace Packer Name Role Phone Anjali Jacome MD Primary Care Provide r Coretta Grady PharmD Unavailable [phone] Reason for Visit * Reason Comments Med Refill Encounter Details Date Type Department Care Team ([facility] st Contact Info) Description 08/08/2023 Refill [facility] [address] [place] [address] Anjali Jacome MD [address] [place] [address] Social History Tobacco Use Types Packs/Day Years [...] Care Team (Late st Contact Info) Description 01/26/2025 10:00 AM EDT Office Visit [facility] [address] [place] [phone] Anjali Jacome MD [address] [place] [phone] documented as of this encounter Visit Diagnoses Not on filedocumented in this encounter Additional Health Concerns Assessment Noted Time PHQ-9 Depression Total Score: 0 02/05/20 23 2:18 PM EDT documented as of this encounter Care Teams Furnace Packer Relationship Specialty Start Date End Date Anjali Jacome MD [address] [place] [phone] PCP - General Family Medicine 06/03/22 Coretta Grady, Song [address] [place] [phone] Pharmacist Internal Medicine 05/04/24 documented as of this encounter
--- OUTSIDE RECORDS SUMMARY | 2025-01-18 08:24 | XMS_ITS | Encounter Summary ---
Author Organization [employer] Address [address] [place] [address] Care Team Providers Care Plant Engineer Name Role Phone Anjali Jacome MD Primary Care Provide r Coretta Grady PharmD Unavailable [phone] Encounter Details Date Type Department Care Team ([facility] Contact Info) Description 07/05/2023 Telephone [facility] [address] [place] [address] Anjali Jacome MD [address] [place] [address] Social History Tobacco Use Types Packs/Day Years Used Date Smoking Tobacco: Former Cigarettes Q uit: 1983 Smokeless Tobacco: Never Depression Answer Date Recorded Patient Health Questionnaire-9 Score 0 02/04/2023 Housing Stability Answer Date Recorded What is your housing situation today? I have [employer] [place] 06/25/[address] you [...] Description 01/26/2025 10:00 AM EDT Office Visit [facility] [address] [place] [address] Anjali Jacome MD [address] [place] [phone] documented as of this encounter Visit Diagnoses Not on filedocumented in this encounter Additional Health Concerns Assessment Noted Time PHQ-9 Depression Total Score: 0 02/05/20 2:18 PM EDT documented as of this encounter Care Teams Plant Engineer Relationship Specialty Start Date End Date Anjali Jacome MD [address] [place] [phone] PCP - General Family Medicine 06/03/22 Coretta Grady, Song [address] [place] [phone] Pharmacist Internal Medicine 05/04/24 documented as of this encounter
--- OUTSIDE RECORDS SUMMARY | 2025-01-18 08:24 | XMS_ITS | Clinical Summary ---
Author Organization [employer] Address [address] [facility] 7[address] [place] [address] Care Team Providers Care Carpenter Form Name Role Phone Anjali Jacome MD Primary Care Provide r Coretta Grady PharmD Unavailable [phone] Allergies Active Allergy Reactions Criticality Noted Date [...] by mouth at bedtime. 05/19/20 24 Active TRUEplus Lancets 33G miscIndications: Type 2 diabetes mellitus with stage 3b chronic kidney disease, with long-term current use of insulin ([facility]) TEST BLOOD SUGAR TWICE DAILY 100 each [...] BEDTIME 90 tablet 1 10/12/19 25 Active FREESTYLE LITE test stripIndications :Type 2 diabetes mellitus with stage 3b chronic kidney disease, with long-term current use of insulin ([facility]) Test blood sugar twice daily 100 strip 11 11/01/19 25 Active Trulicity 0.75 MG/0.5ML solution auto-injectorInd ications:Type 2 diabetes mellitus with stage 3b chronic kidney disease, with long-term current use of insulin ([facility]) INJECT ONE PEN (=0.75MG) SUBCUTANEOUSLY ONCE A WEEK DIRECTED 2 mL 3 11/09/19 25 Active Active Problems Problem Noted Date Diagnosed [...] 10/30/2020 Coronary arteriosclerosis 06/28/2017 Assessment & Plan (11/01/2024 9:40 AM EST): Patient has been follow closely by cardiology, he has an appointment this month, I advised not to miss his appointment Continue with aspirin 81 mg daily Continue with atorvastatin 80 mg daily Continue with metoprolol 25 mg daily Assessment & Plan (07/18/2024 10:53 AM EST): C/w ASA 81mg, atorvastatin 80mg daily, farxiga 10mg daily Continue to follow up with cardiology Essential hypertension 08/22/2013 Assessment & Plan (11/01/2024 9:40 AM EST): Blood pressure seems to be under control continue with metoprolol 25 mg daily, I advised low-sodium diet Assessment & Plan (07/18/2024 10:53 AM EST): [...] chronic kidney disease 04/20/2012 Assessment & Plan (11/01/2024 9:41 AM EST): Diabetes is: controlled - Lab Results Component Value Date HGBA1C 7.0 (A) 11/01/2024 HGBA1C 6.5 (A) 07/17/2024 HGBA1C 11.0 (A) 05/04/2024 - Lab Results Component Value Date MICROALBUR 76.0 06/12/2024 CREATININE 1.88 (H) 06/12/2024 -Changes: none, diabetic diet counseling done today - Diabetic eye exam:up to date patient went last month to his appointment - Diabetic foot exam:pending - Continue lifestyle modifications - Continue current medications - Follow up: 3 months Assessment & Plan (07/18/2024 10:54 AM EST): [...] for him CGM and refer him to [facility] - Diabetic eye exam: has upcoming appointment [...] Encounters Date Type Department Care Team Description 12/14/2024 Telephone [facility] [address] [place] [phone] Anjali Jacome MD 12/05/2024 Telephone [facility] [address] [place] [address] Anjali Jacome MD 11/28/2024 Telephone [facility] [address] [place] [address] Anjali Jacome MD 11/24/2024 Telephone [facility] [address] [place] [address] Anjali Jacome MD 11/13/2024 Telephone [facility] [address] [place] [address] Anjali Jacome MD 11/10/2024 Telephone [facility] [address] [place] [address] Anjali Jacome MD 11/08/[address] [address] Coretta Grady PharmHuang Type 2 diabetes mellitus with stage 3b chronic kidney disease, with long-term current use of insulin ([facility]) 11/07/[address] [address] Anjali Jacome MD 11/01/2024 9:00 AM EST Office Visit [address] [address] Anjali Jacome MD Essential hypertension (Primary Dx); Type 2 diabetes mellitus with stage 3b chronic kidney disease, with long-term current use of insulin ([facility]); Coronary arteriosclerosis 11/01/2024 Travel 10/26/[address] [address] Anjali Jacome MD Chart Prep 10/24/[address] [address] Coretta Grady, PharmHuang from Last 3 Months Immunizations Immunization Administration Dates Next Due Hep B, adult [...] Sign Reading Time Taken Comments Blood Pressure 125/72 11/01/2024 8:54 AM EST Pulse 80 11/01/2024 8:54 AM EST Temperature 35.9 ??C (96.6 ??F) 11/01/2024 8:54 AM ES T Respiratory Rate 20 11/01/2024 8:54 AM EST Oxygen Saturation 100% 11/01/2024 8:54 AM EST Inhaled Oxygen Concentration - - Weight 61.5 kg (135 lb 9.6 oz) 11/01/2024 8:54 A M EST Height 160 cm (5' 3 ) 11/01/2024 8:54 AM EST Body Mass Index 24.02 11/01/2024 8:54 AM EST Plan of Treatment Upcoming Encounters Date Type Department Care Team (Late st Contact Info) Description 01/26/2025 10:00 AM EDT Office Visit [facility] [address] [place] [address] Anjali Jacome MD [address] [place] [address] Health Maintenance Due Date Last Done Comments Diabetes: Foot Exam 1950 Eye Exam 1950 Zoster Vaccines (2 of 3) 11/09/2017 09/14/2017 DTaP/Tdap/Td Vaccines (2 - Td or Tdap) 09/19/2023 09/19/2013, 11/11/2011, 09/07/2001 SDOH Screening 01/29/2024 01/28/2023 COVID-19 Vaccine ( - season) 2024 01/22/2022, 07/22/2021, 12/04/2020 Diabetes: Hemoglobin A1C 01/29/2025 025, 07/17/2024, 05/04/2024, Additional history exists Alcohol/Substance Use Screening 04/14/2025 04/14/2024 Depression Screening 04/14/2025 04/14/2024, 04/14/20 Lipid Panel 05/16/2025 05/16/2024, 06/0 05/2023, 04/27/2022, Additional history exists Tobacco Screening 11/01/2025 11/01/2024 Hepatitis B Vaccines Completed 03/17/2018, 10/18/2017, 09/14/2017 [...] patient's age to complete this topic Meningococcal B Vaccine Aged Out No l onger eligible based on patient's age to complete [...] Diagnosis Comments POCT GLYCATED HEMOGLOBIN, TOTAL Routine 11/01/2024 9:26 AM EST Type 2 diabetes mellitus with stage 3b chronic kidney disease, with long-term current use of insulin ([facility]) POCT GLUCOSE Routine 11/01/2024 8:55 AM EST Type 2 diabetes mellitus with stage 3b chronic kidney disease, with long-term current use of insulin ([facility]) LIPID PANEL WITH REFLEX TO DIRECT LDL Routine 05/16/2024 8:20 AM EDT Type 2 diabetes mellitus with stage 3b chronic kidney disease, with long-term current use of insulin ([facility]) Essential hypertension from Last 3 Months or Most Recently Relevant to Health Maintenance Results * (ABNORMAL) POCT HGB A1C (11/01/2024 9:26 AM EST) Pathologist [facility] Hemoglobin A1C 7.0(A) 4.0 - 6.0 % QC Media Lot # [id number] Lot# Expiration Date ,026 Blood 11/01/2024 9:26 AM EST Anjali Car MD POINT OF CARE TEST EN TER/EDIT ORDERABLES Final Result * POCT Glucose (11/01/2024 8:55 AM EST) Pathologist [facility] Glucose Blood, POC 155 60 - 200 mg/dL QC Media Lot # [id number] Lot# Expiration Date 745,055 Blood Capillary blood specimen / Unknown 11/01/2024 8:55 AM EST Anjali Car MD POINT OF CARE TEST EN TER/EDIT ORDERABLES Final Result * (ABNORMAL) Lipid Panel with Reflex to Direct LDL (05/16/2024 8:20 AM EDT) [facility] Triglycerides 148 <150 mg/dL [facility] Comment:Desirable Triglyceri de: less than 150 mg/dLBorderline High Triglyceride 150-199 mg/dLHigh Triglyceride: 200-499 mg/dLVery High Triglyceride: greater than or equal to 5OO mg/dL Cholesterol 143 <200 mg/dL [facility] Comment:Desirable Cholestero l: less than 200 mg/dLBorderline High Cholesterol: 200-239 mg/dLHigh Cholesterol: greater than 239 mg/dL LDL Cholesterol Calculated 82 <100 mg/dL [facility] Comment:Desirable LDL: less than 100 mg/dLNear Optimal/Above Optimal LDL: 110- 129 mg/dLBorderline High LDL: 130-159 mg/dLHigh LDL: 160-189 mg/dLVery High LDL: greater than or equal to 190 mg/dL HDL Cholesterol 32(L) >40 mg/dL [facility] Comment:Desirable HDL: great er than 40 mg/dL Note: This HDL assay may give artificially low results in patients with liver disease. Blood 05/16/2024 8:20 AM EDT 05/16/2024 11:09 AM EDT Anjali Car MD LAB BLOOD ORDERABLES Final Result [facility] [address] [place] [address] [phone] from Last 3 Months or Most Recently Relevant to Health Maintenance [facility]O D-SNP) DAVID MCGRATH [id number] Care Teams Carpenter Form Relationship Specialty Start Date End Date Anjali Jacome MD [address] [place], [place] [phone] PCP - General Family Medicine 06/03/22 Coretta Grady, AsherD [address] [place] [address] Pharmacist Internal Medicine 05/04/24
--- OUTSIDE RECORDS SUMMARY | 2025-01-18 08:24 | XMS_ITS | Encounter Summary ---
Author Organization [employer] Address [address] [place] [address] Care Team Providers Care Heavy Equipment Operator/Paver Name Role Phone Anjali Jacome MD Primary Care Provide r Coretta Grady PharmD Unavailable [phone]- [phone] Encounter Details Date Type Department Care Team ([facility] st Contact Info) Description 06/15/2023 Orders Only [facility] [address] [place], [place] [phone] Devi Dumont LPN Social History Tobacco Use [...] Description 01/26/2025 10:00 AM EDT Office Visit [facility] [address] [place] [address] Anjali Jacome MD [address] [place] [address] documented as of this encounter Visit Diagnoses Not on filedocumented in this encounter Additional Health Concerns Assessment Noted Time PHQ-9 Depression Total Score: 0 02/05/20 23 2:18 PM EDT documented as of this encounter Care Teams Heavy Equipment Operator/Paver Relationship Specialty Start Date End Date Anjali Jacome MD [address] [place] [address] PCP - General Family Medicine 06/03/22 Coretta Grady, AsherD [address] [place] [phone] Pharmacist Internal Medicine 05/04/24 documented as of this encounter
--- OUTSIDE RECORDS SUMMARY | 2025-01-18 08:24 | XMS_ITS | Encounter Summary ---
Author Organization [employer] Address [address] [facility] [address] 7t [place] [address] Care Team Providers Care Salesperson Floor Coverings Name Role Phone Anjali Jacome MD Primary Care Provide r Coretta Grady PharmD Unavailable [phone] Reason for Visit * Reason Onset Date Comments HDF 08/02/2023 Encounter Details Date Type Department Care Team ([facility] Contact Info) Description 08/02/2023 Telephone [facility] [address] [place] [address] Anjali Jacome MD [address] [place], [place] [phone] HDF Social History Tobacco Use Types Packs/Day [...] Urine infection and pneumonia. [place] [facility] [place]. Patient advised will forward to triage nurse for follow up and appointment. PCP Dr. Mosley documented in this encounter Plan of Treatment Upcoming Encounters Date Type Department Care Team (Late st Contact Info) Description 01/26/2025 10:00 AM EDT Office Visit [facility] [address] [place] [address] Anjali Jacome MD [address] [place] [address] documented as of this encounter Visit Diagnoses Not on filedocumented in this encounter Additional Health Concerns Assessment Noted Time PHQ-9 Depression Total Score: 0 02/05/20 2:18 PM EDT documented as of this encounter Care Teams Salesperson Floor Coverings Relationship Specialty Start Date End Date Anjali Jacome MD [address] [place] [address] [phone] PCP - General Family Medicine 06/03/22 Coretta Grady, Song [address] [place] [address] [phone] Pharmacist Internal Medicine 05/04/24 documented as of this encounter
--- OUTSIDE RECORDS SUMMARY | 2025-01-18 08:24 | XMS_ITS | Encounter Summary ---
Author Organization [employer] Address [address] [facility] 7t [place] [address] Care Team Providers Care Juvenile Officer Name Role Phone Anjali Jacome MD Primary Care Provide r Coretta Grady PharmD Unavailable [phone] Encounter Details Date Type Department Care Team (Late st Contact Info) Description 11/09/2022 Orders Only [facility] [address] [place] [address] Jane Howell LPN Social History Tobacco Use [...] Department Care Team (Late Contact Info) Description 01/26/2025 10:00 AM EDT Office Visit [facility] [address] [place] [address] Anjali Jacome MD 230 [place], [place] [phone] documented as of this encounter Visit Diagnoses Not on filedocumented in this encounter Care Teams Juvenile Officer Relationship Specialty Start Date End Date Anjali Jacome MD [address] [place] [address] [phone] PCP - General Family Medicine 06/03/22 Coretta Grady, AsherD [address] [place] [phone] Pharmacist Internal Medicine 05/04/24 documented as of this encounter
--- OUTSIDE RECORDS SUMMARY | 2025-01-18 08:24 | XMS_ITS | Clinical Summary ---
Author Organization [facility] Facility Address [address] [address] Care Team Providers Care Test Engine Evaluator Name Role Phone Jero, Moe Primary Care [...] minutes if needed for chest pain Active Trulicity 1.5 MG/0.5ML solution pen-injector Inject 1.5 mg under the skin per week 05/04/2024 Active Farxiga 10 MG tablet TAKE 1 TABLET BY MOUTH EVERY MORNING 90 tablet 1 06/13/2024 Active Cholecalciferol (Vitamin D) 50 MCG (1999 UT) capsule Take 1 tablet by mouth 1 (one) time each day 90 capsule 3 12/31/2023 12/31/19 25 Active Problems Problem Noted Date Diagnosed Date [...] 04/20/2012 08/23/2023 Benign prostatic hyperplasia 04/20/2012 Immunizations Immunization Administration Dates Next Due Hepatitis B 03/17/2018,10/18/2017,09/14/2017 [...] Visit [facility] [address] [place] [address] Evan Chauhan MD [address] [facility] [address] [place] [address] Health Maintenance Due Date Last Done Comments Diabetes: Ophthalmology Exam 10/06/2020 Diabetes: Pedal Pulse Checked 10/06/2020 Diabetes: Sensory Foot Exam 10/06/2020 Diabetes: Visual Foot Exam 10/06/2020 Diabetes: Hemoglobin A1C 08/04/2024 024, 04/14/2024, 07/07/2023 Influenza Vaccine (Season Ended) 2025 06/01/2022, 08/16/2019, 06/27/2018, Additional history exists Hepatitis B Vaccine Aged Out 03/17/2018, 10/18/2017, 09/14/2017 No longer eligible based on patient's age to complete this topic Pneumococcal Vaccine: 50+ Years Completed 06/01/2022, 11/11/2011, 07/16/2005 Pneumococcal Vaccine: Peds (0 to 5 Years) and At-Risk Patients (6 to 49 Years) Discontinued 06/01/2022, 11/11/2011, 07/16/2005 Insurance [place] [id number] [facility] ([id number]) [facility] ([id number]) Care Teams Test Engine Evaluator Relationship Specialty Start Date End Date Moe Nogueira PCP - General Internal Medicine 04/01/21
--- OUTSIDE RECORDS SUMMARY | 2025-01-18 08:24 | XMS_ITS | Encounter Summary ---
Author Organization [employer] Address [address] [facility] [address] 7[address] [place] [address] Care Team Providers Care Molding Associate Name Role Phone Anjali Jacome MD Primary Care Provide r Coretta Grady PharmD Unavailable [phone] Reason for Visit * Reason Comments Med Refill Encounter Details Date Type Department Care Team ([facility] st Contact Info) Description 10/26/2023 Refill [facility] [address] [place] [address] Anjali Jacome MD [address] [place] [address] Type 2 diabetes mellitus with other specified complication, unspecified whether care home insulin use ([facility]) Social History Tobacco Use Types Packs/Day Years [...] Description 01/26/2025 10:00 AM EDT Office Visit [facility] [address] [place] [address] Anjali Jacome MD [address] [place] [address] documented as of this encounter Visit Diagnoses Diagnosis Type 2 diabetes mellitus with other specified complication, 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
--- OUTSIDE RECORDS SUMMARY | 2025-01-18 08:24 | XMS_ITS | Encounter Summary ---
Author Organization [employer] Address [address] [facility] 7t [place] [address] Care Team Providers Care Golf Course Equipment Operator Name Role Phone Anjali Jacome MD Primary Care Provide r Coretta Grady PharmD Unavailable [phone] Reason for Visit * Reason Onset Date Comments PA 10/19/2022 Encounter Details Date Type Department Care Team ([facility] st Contact Info) Description 10/19/2022 Telephone [facility] [address] [place] [address] Anjali Jacome MD [address] [place], [place] [phone] [place] Social History Tobacco Use Types Packs/Day [...] Description 01/26/2025 10:00 AM EDT Office Visit [facility] [address] [place] [address] [phone] Anjali Jacome MD [address] [place] [address] [phone] documented as of this encounter Visit Diagnoses Not on filedocumented in this encounter Care Teams Golf Course Equipment Operator Relationship Specialty Start Date End Date Anjali Jacome MD [address] [place] [address] [phone] PCP - General Family Medicine 06/03/22 Coretta Grady, AsherD [address] [place] [address] [phone] Pharmacist Internal Medicine 05/04/24 documented as of this encounter
== END ==
LOC: HO.CARD 08:15
PROVIDERS: PCP Internal Medicine; Visit Provider Nurse Practitioner Family
DX: R07.89 Other chest pain (principal); I25.10 Atherosclerotic heart disease of native coronary artery without angina pectoris
CPT/HCPCS: 78452; 93017; A9500; J0280; J2785

== ENCOUNTER → 2025-01-18 08:18 | Outpatient (BNV) | payer OTHER, SELFPAY | PROVIDERS: PCP Internal Medicine | DX: R06.02 Shortness of breath (principal); R07.9 Chest pain, unspecified | CPT/HCPCS: 78452; 93016; 93018 ==

== ENCOUNTER 2025-01-23 08:55 | Outpatient (AMB) | payer OTHER, SELFPAY ==
[2025-01-23 09:18] VITALS: BP 120/82; PULSE 74; BMI 24.9
--- NOTE | 2025-01-23 09:18 | MHC.OFFVIS ---
Vital Signs 01/23/25 09:18 Height 5 ft 3 in Weight 140 lb 10.479 oz BMI 24.9 BP 120/82 Blood Pressure Location Lt brachial Position Sitting Pulse 74 Pulse Source Pulse Oximeter Intake Visit Reasons: f/u after testing Grooming Salon Manager Required: No Paint Brush Maker: Paint Brush Maker Present Allergies No Known Allergies Allergy (Mild, Verified 01/23/25 09:20) NONE Medication List - Last Reconciled 01/23/25 by Brandie Amaro NP-C aspirin 81 mg PO DAILY atorvastatin 80 mg PO DAILY dulaglutide (Trulicity) 0.75 mg subcut TU@0900 ezetimibe (Zetia) 10 mg PO DAILY metoprolol succinate ER 50 mg PO DAILY omeprazole 20 mg PO QAM HPI HPI f/u after testing: Details: Solomon is an 84-year-old male with past medical history of hypertension, hyperlipidemia, diabetes, CAD with inferior STEMI 2015 who reported an episode of chest discomfort on last visit. His metoprolol was increased and nuclear stress test ordered and he now presents for follow-up. Today he reports that he has been doing very well since his last visit in September. He has not had any recurrent chest discomfort at rest or during activities. He has no concerning symptoms at this time. No chest discomfort brought on by doing actual activities. No shortness of breath, PND, orthopnea or edema. No lightheadedness, presyncope, syncope, falls. He admits to being mostly sedentary. He has been taking his meds as directed. Family member present and assisting with Irish translation at their request. [facility] Medical History CKD (chronic kidney disease) stage 4, GFR 15-29 ml/min Renal osteodystrophy Stage 3 chronic kidney disease Coronary atherosclerosis Essential hypertension Mixed hyperlipidemia Mild nonproliferative diabetic retinopathy Benign prostatic hyperplasia Gastroesophageal reflux disease Type 2 diabetes mellitus with unspecified complications Atherosclerotic cardiovascular disease Surgical History No pertinent past surgical history Family History Father No problems noted. Mother No problems noted. Social History Household Members: Spouse Housing: Apartment Do you presently have visiting nurse or other home services: Yes Alcohol intake: never Patient Tobacco Use Status: Never used Tobacco service: No Review of Systems Const All systems reviewed & are unremarkable except as noted in HPI and below ENT Denies dizziness Card Denies chest pain, Denies chest pain at rest, Denies chest pain with activity, Denies rapid heart rate, Denies pedal edema, Denies edema, Denies leg edema, Denies lightheadedness, Denies palpitations, Denies dyspnea, Denies dyspnea on exertion and Denies orthopnea Resp Denies cough, Denies dyspnea and Denies dyspnea on exertion GI Denies hematochezia and Denies change in stool character Musc Denies abnormal gait, Denies limited range of motion, Denies muscle cramps, Denies muscle weakness, Denies numbness, Denies radiating pain into limb, Denies stiffness and Denies tingling Neuro Denies abnormal gait, Denies dizziness, Denies numbness and Denies tingling Endo Denies palpitations Physical Exam Vital Signs: Last Vital Signs Pulse 74 01/23/25 09:18 BP 120/82 01/23/25 09:18 BMI result Body Mass Index 24.9 Const General: cooperative, healthy appearing, comfortable and no acute distress Orientation/consciousness: patient oriented x3 Neck Neck: Yes normal visual inspection and Yes no JVD Resp Effort & Inspection: normal respiratory effort Auscultation: clear to auscultation bilaterally, no crackles, no rales, no rhonchi and no wheezes Cardio Rate: regular rate Rhythm: regular rhythm Heart sounds: S1 normal heart sound present, S2 normal heart sound present, no gallops, no murmurs and no rubs Neuro General: patient oriented x3 Extrem General: Yes normal to inspection, No no pedal edema and No calf tenderness Psych Appearance: grossly normal Mental Status: mental status grossly normal Speech and movement: Normal speech and movement present Results Reviewed Results Reviewed: Nuclear stress test 01/18/25 /NM cardiolite stress test Impression: 1. Myocardial perfusion imaging study shows basal septal nontransmural infarct with mild ischemia of the medial inferior wall 2. Gated LVEF is 58% 3. Transient ischemic dilatation not present Nondiagnostic changes on EKG. Assessment & Plan Assessment & Plan (1) Atherosclerotic cardiovascular disease: Code(s): I25.10 - Atherosclerotic heart disease of [place] coronary artery without angina pectoris Category: Medical Plan: History of CAD with inferior STEMI 2016. Notes indicate that catheterization at that time showed RCA was small in size and thought to have chronic stenosis, intermediate grade lesion in the LAD and 100% distal circumflex stenosis. Last echocardiogram 2019 shows EF 60-65%, no regional wall motion abnormalities, mild calcification of the aortic valve and mild mitral annular calcification. A nuclear stress test was ordered last visit for reports of 1 episode of chest discomfort. Nuclear scan done 01/18/2025 showed basal septal nontransmural infarct with mild ischemia in the inferior wall. On last visit his metoprolol was increased. He is currently asymptomatic. Signs and symptoms of angina reviewed with him. Continue on current med management including aspirin indefinitely, high-dose atorvastatin and Zetia for ideal LDL goal less than 70, continue metoprolol. Will update echocardiogram. Cardiology follow-up 6 months, sooner if needed. . (2) Essential hypertension: Code(s): I10 - Essential (primary) hypertension Category: Medical Plan: [place] blood pressure goal less than 130/80. Well controlled at this time. No med changes made (3) Type 2 diabetes mellitus with unspecified complications: Code(s): E11.8 - Type 2 diabetes mellitus with unspecified complications Category: Medical Plan: Hemoglobin A1c goal less than 7. Followed by his PCP. (4) Mixed hyperlipidemia: Code(s): E78.2 - Mixed hyperlipidemia Category: Medical Plan: [place] LDL goal less than 70. Labs done on 05/16/2024 showed LDL 82. AST 38, ALT 37. He continues on atorvastatin 80 mg daily, Zetia added last visit. Fasting lipids ordered and patient reminded. Plan Time spent on chart review, documentation, interview and assessment During the consultation, I discussed the patient?s cardiovascular status, emphasizing the importance of monitoring for new symptoms such as chest pain or dyspnea, which may necessitate evaluating coronary vasculature more invasively. The nuclear stress test indicated old Infarct, and the patient is currently managed with medications to optimize cardiac function. I reviewed the need for regular cholesterol checks to adjust therapeutic strategies if necessary. Travel to [place] should be reassessed based on symptom stability closer to planned departure. Follow-up is scheduled in six months, with the understanding that reassessment may be necessary if symptoms recur. Consent for the current management plan was obtained without any queries from the patient. Patient Instructions: - Continue taking medications as prescribed. - Report any new symptoms, such as chest pain or shortness of breath, promptly. - Have your cholesterol tested soon; remember to fast before the test. - Continue your daily activities and exercise as tolerated. - Plan for a follow-up appointment in six months, or sooner if needed. - Assess travel plans closer to the date and report any changes in symptoms before making arrangements. Patient was informed and verbally consented to the use of an ambient scribe for clinic note documentation during this visit. Coding Level of Care Code Est Pt Level 4 (28154) Complex EM visit Add On G2211 Diagnoses Atherosclerotic cardiovascular disease I25.10 Essential hypertension I10 Type 2 diabetes mellitus with unspecified complications E11.8 Mixed hyperlipidemia E78.2 Time Spent (min) 28
--- OUTSIDE RECORDS SUMMARY | 2025-01-23 09:23 | XMS_ITS | Encounter Summary ---
Author Organization [employer] Address [address] [facility] [address] 7t [place] [address] Care Team Providers Care Machine Preservative Filler Name Role Phone Anjali Jacome MD Primary Care Provide r Coretta Grady PharmD Unavailable [phone]- [phone] Reason for Visit * Reason Onset Date Comments HDF 08/02/2023 Encounter Details Date Type Department Care Team ([facility] Contact Info) Description 08/02/[address] [facility] [address] [place] [address] Anjali Jacome MD [address] [place], [place] [phone] HDF Social History Tobacco Use Types Packs/Day [...] Urine infection and pneumonia. Patient hospitalized at [facility] and discharged on 07/24. Patient advised will forward to triage nurse for follow up and appointment. PCP Dr. Mosley documented in this encounter Plan of Treatment Upcoming Encounters Date Type Department Care Team (Late st Contact Info) Description 01/26/2025 10:00 AM EDT Office Visit [facility] [address] [place] [address] Anjali Jacome MD 230 [place] [address] documented as of this encounter Visit Diagnoses Not on filedocumented in this encounter Additional Health Concerns Assessment Noted Time PHQ-9 Depression Total Score: 0 02/05/20 23 2:18 PM EDT documented as of this encounter Care Teams Machine Preservative Filler Relationship Specialty Start Date End Date Anjali Jacome MD [address] [place] [address] [phone] PCP - General Family Medicine 06/03/22 Coretta Grady, Song [address] [place], [place] [phone] Pharmacist Internal Medicine 05/04/24 documented as of this encounter
--- OUTSIDE RECORDS SUMMARY | 2025-01-23 09:23 | XMS_ITS | Encounter Summary ---
Author Organization [employer] Address [address] [facility] [address] 7t [place] [address] Care Team Providers Care Hotel Reservation Agent Name Role Phone Anjali Jacome MD Primary Care Provide r Coretta Grady PharmD Unavailable [phone]- [phone] Encounter Details Date Type Department Care Team ([facility] Contact Info) Description 07/05/2023 Telephone [facility] [address] [place] [address] Anjali Jacome MD [address] [place] [address] Social History Tobacco Use Types Packs/Day Years [...] Description 01/26/2025 10:00 AM EDT Office Visit [facility] [address] [place] [phone] Anjali Jacome MD [address] [place] [phone] documented as of this encounter Visit Diagnoses Not on filedocumented in this encounter Additional Health Concerns Assessment Noted Time PHQ-9 Depression Total Score: 0 02/05/20 23 2:18 PM EDT documented as of this encounter Care Teams Hotel Reservation Agent Relationship Specialty Start Date End Date Anjali Jacome MD [address] [place] [phone] PCP - General Family Medicine 06/03/22 Coretta Grady, AsherD [address] [place] [phone] Pharmacist Internal Medicine 05/04/24 documented as of this encounter
--- OUTSIDE RECORDS SUMMARY | 2025-01-23 09:23 | XMS_ITS | Encounter Summary ---
Author Organization [employer] Address [address] [facility] [address] 7t [place] [address] Care Team Providers Care Director Of Testing Name Role Phone Anjali Jacome MD Primary Care Provide r Coretta Grady PharmD Unavailable [phone]- [phone] Reason for Visit * Reason Comments Med Refill Encounter Details Date Type Department Care Team ([facility] st Contact Info) Description 10/26/2023 Refill [facility] [address] [place] [address] Anjali Jacome MD 230 [place], [place] [phone] Type 2 diabetes mellitus with other specified complication, unspecified whether fpc insulin use ([facility]) Social History Tobacco Use Types Packs/Day [...] Description 01/26/2025 10:00 AM EDT Office Visit [facility] [address] [place] [address] Anjali Jacome MD [address] [place] [address] documented as of this encounter Visit Diagnoses Diagnosis Type 2 diabetes mellitus with other specified complication, unspecified whether fpc insulin use ([facility]) documented in this encounter Additional Health Concerns Assessment Noted Time PHQ-9 Depression Total Score: 0 02/05/20 23 2:18 PM EDT documented as of this encounter Care Teams Director Of Testing Relationship Specialty Start Date End Date Anjali Jacome MD [address] [place] [phone] PCP - General Family Medicine 06/03/22 Coretta Grady, AsherD [address] [place] [phone] Pharmacist Internal Medicine 05/04/24 documented as of this encounter
--- OUTSIDE RECORDS SUMMARY | 2025-01-23 09:23 | XMS_ITS | Clinical Summary ---
Author Organization [facility] Address [address] [address] Care Team Providers Care Help Desk Manager Name Role Phone Jero, Moe Primary [...] Visit [facility] [address] [place] [address] Evan Chauhan MD [address] [facility] [address] [place] [address] Health Maintenance Due Date Last [...] Discontinued 06/01/2022, 11/11/2011, 07/16/2005 Insurance [place] [id number] [facility] ([id number]) [facility] ([id number]) Care Teams Help Desk Manager Relationship Specialty Start Date End Date Moe Nogueira PCP - General Internal Medicine 04/01/21
--- OUTSIDE RECORDS SUMMARY | 2025-01-23 09:23 | XMS_ITS | Encounter Summary ---
Author Organization [employer] Address 75 [facility] 7t [place] [address] Care Team Providers Care Collection Systems Technician Name Role Phone Anjali Jacome MD Primary Care Provide r Coretta Grady PharmD Unavailable [phone]- [phone] Encounter Details Date Type Department Care Team (Late Contact Info) Description 11/09/2022 Orders Only [facility] PEDS [address] [place] [address] Jane Howell LPN Social History Tobacco Use [...] Description 01/26/2025 10:00 AM EDT Office Visit [facility] [address] [place] [address] Anjali Jacome MD 230 [place], [place] [phone] documented as of this encounter Visit Diagnoses Not on filedocumented in this encounter Care Teams Collection Systems Technician Relationship Specialty Start Date End Date Anjali Jacome MD [address] [place] [address] [phone] PCP - General Family Medicine 06/03/22 Coretta Grady, AsherD [address] [place] [phone] Pharmacist Internal Medicine 05/04/24 documented as of this encounter
--- OUTSIDE RECORDS SUMMARY | 2025-01-23 09:23 | XMS_ITS | Encounter Summary ---
Author Organization [employer] Address 75 [facility] 7t [place] [address] Care Team Providers Care Risk Investigator Name Role Phone Anjali Jacome MD Primary Care Provide r Coretta Grady PharmD Unavailable [phone]- [phone] Reason for Visit * Reason Onset Date Comments PA 10/19/2022 Encounter Details Date Type Department Care Team ([facility] Contact Info) Description 10/19/2022 Telephone [facility] MED[facility]INE [address] [place] [address] Anjali Jacome MD 230 [place] [address] PA Social History Tobacco Use Types Packs/Day [...] Description 01/26/2025 10:00 AM EDT Office Visit [facility] [address] [place] [address] [phone] Anjali Jacome MD [address] [place] [address] [phone] documented as of this encounter Visit Diagnoses Not on filedocumented in this encounter Care Teams Risk Investigator Relationship Specialty Start Date End Date Anjali Jacome MD [address] [place] [address] [phone] PCP - General Family Medicine 06/03/22 Coretta Grady, PharmD [address] [place] [address] [phone] Pharmacist Internal Medicine 05/04/24 documented as of this encounter
--- OUTSIDE RECORDS SUMMARY | 2025-01-23 09:23 | XMS_ITS | Encounter Summary ---
Author Organization [employer] Address [address] [facility] [address] 7t [place] [address] Care Team Providers Care Armature [employer] Name Role Phone Anjali Jacome MD Primary Care Provide r Coretta Grady PharmD Unavailable [phone] Encounter Details Date Type Department Care Team ([facility] Contact Info) Description 01/18/2025 Orders Only [facility] External Provider, [facility] Social History Tobacco Use Types Packs/Day Years [...] Description 01/26/2025 10:00 AM EDT Office Visit [facility] [address] [place] [address] Anjali Jacome MD 230 [place] [address] documented as of this encounter Procedures Procedure Name Priority Date/Time Associated Diagnosis Comments STRESS TEST WITH MYOCARDIAL PERFUSION Routine 01/18/2025 8:35 AM EDT documented in this encounter Results * Stress test with myocardial perfusion (01/18/2025 8:35 AM EDT) 01/18/2025 8:35 AM EDT Narrative [facility] IMAGING - 01/20/2025 1:04 PM EDT ? [facility] ?[address] ?[place] [address] ?Nuclear Medicine Report ? Signed ? Patient: Joel Solomon Caicedo ?MR#: [id number] ?? [id number] ? : 1940 ?Acct:[id number] ? Age/Sex: 84 / M ?ADM Date: 05/15/25 ? Loc: HO.CARD ? Attending Dr: Brandie SCHMITT ? Ordering Physician: Brandie Amaro ?? Date of Service: 01/18/25 ?? Procedure(s): NM cardiolite stress test ?? Accession Number(s): [id number] ? cc: Anjali Jacome MD; Brandie Amaro ? Lexiscan Myocardial perfusion study ? Indication: ?? Chest pain to evaluate for myocardial ischemia ? Technique: ? The patient was brought in for a Lexiscan perfusion study on January 18, ?? 2024 and was injected 0.4 mg of Lexiscan intravenously. Within a minute ?? of this injection 25 mCi of sestamibi was given intravenously. Images ?? were obtained using the SPECT gamma camera interlaced with the gating ?? device. Images were obtained in supine position. ? Resting perfusion study was performed on January 19, 2025. Patient was ?? administered 25 mCi of sestamibi intravenously at rest. Images were ?? then obtained in supine position. ? Images obtained without without CT attenuation. Total DLP 59 mGy-cm. ? Images were processed with the software and compared side to side in ?? short axis, horizontal long axis and vertical long axis views. ? Findings: ? The stress perfusion study showed ??nonattenuated images show moderately ?? reduced uptake in the basal septum as well as. Moderately reduced ?? uptake in the basal inferior wall of the LV myocardium. The gated study ?? shows normal LV systolic function with calculated LVEF of 58%. LV ?? cavity is normal in size. The gated study shows areas ??wall thickening ?? and contraction of the basal septal segments. ?? Resting study shows nontender images show moderately reduced uptake in ?? the basal septum as well as minimal reduced uptake in the basal ?? inferior wall of the LV myocardium. Gating at rest reveals basal septal ?? wall motion with ejection fraction at 59%. ? The findings are consistent with fixed defect in the basal septum ?? suggestive of possibly nontransmural infarct with reversible defect in ?? the basal inferior wall ischemia. ? NM/NM cardiolite stress test ?? Impression: ? 1. 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 2. ??Gated LVEF is 58% ?? 3. Transient ischemic dilatation not present ? Nondiagnostic changes on EKG. ? Electronically signed by: ??Zach Lazar MD ??01/20/2025 01:01 PM EDT RP ? Dictated By: ?Zach Lazar MD ? Signed By: ?<Electronically signed by Zach Lazar MD in OV> ?01/20/25 1301 ? DD/ 0835 ? TD/TT: 01/19/25 1200 ? Piping Design Specialist: ? Procedure Note Donotjosephter, Image - 01/22/[address] [address] Nuclear Medicine Report Signed Patient: Donna Mcgrath#: [id number] : 1940cct:[id number] Age/Sex: 84 / MADM Date: 01/18/25 Loc: [facility] Attending Dr: Brandie SCHMITT Ordering Physician: Brandie Amaro Date of Service: 01/18/25 Procedure(s): NM cardiolite stress test Accession Number(s): [id number] cc: Anjali Jacome MD; Brandie Amaro Lexiscan Myocardial perfusion study Indication: Chest pain to evaluate for myocardial ischemia Technique: The patient was brought in for a Lexiscan perfusion study on January 18, 2025 and was injected 0.4 mg of Lexiscan intravenously. Within a minute of this injection 25 mCi of sestamibi was given intravenously. Images were obtained using the SPECT gamma camera interlaced with the gating device. Images were obtained in supine position. Resting perfusion study was performed on January 19, 2025. Patient was administered 25 mCi of sestamibi intravenously at rest. Images were then obtained in supine position. Images obtained without without CT attenuation. Total DLP 59 mGy-cm. Images were processed with the software and compared side to side in short axis, horizontal long axis and vertical long axis views. Findings: The stress perfusion study showed nonattenuated images show moderately reduced uptake in the basal septum as well as. Moderately reduced uptake in the basal inferior wall of the LV myocardium. The gated study shows normal LV systolic function with calculated LVEF of 58%. LV cavity is normal in size. The gated study shows areas wall thickening and contraction of the basal septal segments. Resting study shows nontender images show moderately reduced uptake in the basal septum as well as minimal reduced uptake in the basal inferior wall of the LV myocardium. Gating at rest reveals basal septal wall motion with ejection fraction at 59%. The findings are consistent with fixed defect in the basal septum suggestive of possibly nontransmural infarct with reversible defect in the basal inferior wall ischemia. NM/NM cardiolite stress test Impression: 1. 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 Gated LVEF is 58% 3. Transient ischemic dilatation not present Nondiagnostic changes on EKG. Electronically signed by: Zach Lazar MD 01/20/2025 01:01 PM EDT RP Dictated By: Zach Lazar MD Signed By: <Electronically signed by Zach Lazar MD in OV> 01/20/25 1301 DD/ 0835 TD/TT: 01/19/25 1200 Piping Design Specialist: [facility] External Provider CV STRE SS PROCEDURES Edited Result - Final [facility] [address] [place] [address] documented in this encounter Visit Diagnoses Not on filedocumented in this encounter Additional Health Concerns Assessment Noted Time PHQ-9 Depression Total Score: 0 04/14/20 24 9:38 AM EDT documented as of this encounter Care Teams Armature [employer] Relationship Specialty Start Date End Date Anjali Jacome MD [address] [place] [address] PCP - General Family Medicine 06/03/22 Coretta rGady PharmD [address] [place] [address] Pharmacist Internal Medicine 05/04/24 documented as of this encounter
--- OUTSIDE RECORDS SUMMARY | 2025-01-23 09:23 | XMS_ITS | Encounter Summary ---
Author Organization [employer] Address [address] [facility] [address] [facility] [address] 7t [place] [address] Care Team Providers Care Pie Maker Name Role Phone Anjali Jacome MD Primary Care Provide r Coretta Grady PharmD Unavailable [phone]- [phone] Encounter Details Date Type Department Care Team ([facility] Contact Info) Description 06/15/2023 Orders Only [facility] MED & PEDS [address] [place], [place] [phone] Devi Dumont LPN Social History Tobacco Use [...] Description 01/26/2025 10:00 AM EDT Office Visit [facility] MEDICINE [address] [place] [address] Anjali Jacome MD 230 [place] [address] documented as of this encounter Visit Diagnoses Not on filedocumented in this encounter Additional Health Concerns Assessment Noted Time PHQ-9 Depression Total Score: 0 02/05/20 23 2:18 PM EDT documented as of this encounter Care Teams Pie Maker Relationship Specialty Start Date End Date Anjali Jacome MD [address] [place] [address] PCP - General Family Medicine 06/03/22 Coretta Grady, AsherD [address] [place] [phone] Pharmacist Internal Medicine 05/04/24 documented as of this encounter
--- OUTSIDE RECORDS SUMMARY | 2025-01-23 09:23 | XMS_ITS | Encounter Summary ---
Author Organization [employer] Address 75 [facility] 7t [place] [address] Care Team Providers Care Grocery Checker Name Role Phone Anjali Jacome MD Primary Care Provide r Coretta Grady PharmD Unavailable [phone]- [phone] Reason for Visit * Reason Comments Med Refill Encounter Details Date Type Department Care Team ([facility] st Contact Info) Description 08/08/2023 Refill [facility] MEDICINE [address] [place] [address] Anjali Jacome MD 230 [place], [place] [phone] Social History Tobacco Use Types Packs/Day Years [...] Description 01/26/2025 10:00 AM EDT Office Visit [facility] MEDICINE [address] [place] [phone] Anjali Jacome MD [address] [place] [address] documented as of this encounter Visit Diagnoses Not on filedocumented in this encounter Additional Health Concerns Assessment Noted Time PHQ-9 Depression Total Score: 0 02/05/20 23 2:18 PM EDT documented as of this encounter Care Teams Grocery Checker Relationship Specialty Start Date End Date Anjali Jacome MD [address] [place] [phone] PCP - General Family Medicine 06/03/22 Coretta Grady, Song [address] [place] [address] Pharmacist Internal Medicine 05/04/24 documented as of this encounter
--- OUTSIDE RECORDS SUMMARY | 2025-01-23 09:23 | XMS_ITS | Clinical Summary ---
Author Organization [employer] Address [address] [facility] 7t [place] [address] Care Team Providers Care Director Pharmacy Services Name Role Phone Anjali Jacome MD Primary Care Provide r Coretta Grady PharmD Unavailable [phone]- [phone] Allergies Active Allergy Reactions Criticality Noted Date [...] disease, with long-term current use of insulin ([facility]) TEST BLOOD SUGAR TWICE DAILY 100 each [...] disease, with long-term current use of insulin ([facility]) Test blood sugar twice daily 100 strip 11 11/01/19 25 Active Trulicity 0.75 MG/0.5ML solution auto-injectorInd ications:Type 2 diabetes mellitus with stage 3b chronic kidney disease, with long-term current use of insulin ([facility]) INJECT ONE PEN (=0.75MG) SUBCUTANEOUSLY ONCE A [...] for him CGM and refer him to [facility] - Diabetic eye exam: has upcoming appointment [...] Encounters Date Type Department Care Team Description 01/18/2025 Orders Only [facility] External Provider, [facility] 01/18/2025 Patient Outreach [facility] MEDICINE [address] [place] [phone] Anjali Jacome MD Pre-visit Planning ((Unable to reach for PVP screening and or LVM)) 12/14/[address] [phone] Anjali Jacome MD 12/05/[address] [phone] Anjali Jacome MD 11/28/2024 Telephone [facility] MED[facility] [address] [place] [address] Anjali Jacome MD 11/24/[address] [address] Anjali Jacome MD 11/13/[address] [address] Anjali Jacome MD 11/10/[address] [phone] Anjali Jacome MD 11/08/[address] [address] Coretta Grady, Song Type 2 diabetes mellitus with stage 3b chronic kidney disease, with long-term current use of insulin ([facility]/HCC) 11/07/[address] [address] Anjali Jacome MD 11/01/2024 9:00 AM EST Office Visit [address] [phone] Anjali Jacome MD Essential hypertension (Primary Dx); Type 2 diabetes mellitus with stage 3b chronic kidney disease, with long-term current use of insulin (CMS/[facility]); Coronary arteriosclerosis 11/01/2024 Travel 10/26/[address] [phone] Anjali Jacome MD Chart Prep from Last 3 Months Immunizations Immunization Administration [...] Description 01/26/2025 10:00 AM EDT Office Visit [facility] MEDICINE [address] [place] [address] Anjali Jacome MD [address] [place] [address] Health Maintenance Due Date Last Done Comments [...] 04/14/2024 Depression Screening 04/14/2025 04/14/2024, 04/14/20 24 Lipid Panel 05/16/2025 05/16/2024, 06/0 05/2023, 04/27/2022, [...] MYOCARDIAL PERFUSION Routine 01/18/2025 8:35 AM EDT POCT GLYCATED HEMOGLOBIN, TOTAL Routine 11/01/2024 9:26 AM EST Type 2 diabetes mellitus with stage 3b chronic kidney disease, with long-term current use of insulin ([facility]) POCT GLUCOSE Routine 11/01/2024 8:55 AM EST Type 2 diabetes mellitus with stage 3b chronic kidney disease, with long-term current use of insulin (CMS/HCC) LIPID PANEL WITH REFLEX TO DIRECT LDL Routine 05/16/2024 8:20 AM EDT Type 2 diabetes mellitus with stage 3b chronic kidney disease, with long-term current use of insulin (CMS/HCC) Essential hypertension from Last 3 Months or Most Recently Relevant to Health Maintenance Results * Stress test with myocardial perfusion (01/18/2025 8:35 AM EDT) 01/18/2025 8:35 AM EDT Narrative [facility] IMAGING - 01/20/2025 1:04 PM EDT ? [facility] ?[address] ?[place] [address] ?Nuclear Medicine Report ? Signed ? Patient: Joel Caicedo,Solomon ?MR#: [id number] ?? [id number] ? : 1940 ?Acct:[id number] ? Age/Sex: 84 / M ?ADM Date: 01/18/25 ? Loc: HO.CARD ? Attending Dr: Brandie SCHMITT ? Ordering Physician: Brandie Amaro ?? Date of Service: 01/18/25 ?? Procedure(s): NM cardiolite stress test ?? Accession Number(s): [id number] ? cc: Anjali Jacome MD; Brandie Amaro [...] DD/ 0835 ? TD/TT: 01/19/25 1200 ? Gizzard Puller: ? Procedure Note Joselin, Image - 01/22/[address] [address] Nuclear Medicine Report Signed Patient: Solomon Mcgrath#: MM [id number] : 1Acct:[id number] Age/Sex: 84 / MADM Date: 01/18/25 Loc: [facility] Attending Dr: Brandie Amaro SERVER MANAGER-C Ordering Physician: Brandie Amaro Date of Service: 01/18/25 Procedure(s): NM cardiolite stress test Accession Number(s): [id number] cc: Anjali Jacome MD; Brandie Amaro Lexiscan [...] Zach Lazar MD 01/20/2025 01:01 PM EDT Dictated By: Zach Lazar MD Signed By: <Electronically signed by Zach Lazar MD in OV> 01/20/25 1301 DD/ 0835 TD/TT: 01/19/25 1200 Gizzard Puller: [facility] External Provider CV STRE SS PROCEDURES Edited Result - Final [facility] [address] [place] [phone] * (ABNORMAL) POCT HGB A1C (11/01/2024 9:26 AM EST) Hemoglobin A1C 7.0(A) 4.0 - 6.0 % QC Media Lot # [id number] Lot# Expiration Date ,068,011 Blood 11/01/2024 9:26 AM EST Anjali Car MD POINT OF CARE TEST EN TER/EDIT ORDERABLES Final Result * POCT Glucose (11/01/2024 8:55 AM EST) Glucose Blood, POC 155 60 - 200 mg/dL QC Media Lot # [id number] Lot# Expiration Date 466,200 Blood Capillary blood specimen / Unknown 11/01/2024 8:55 AM EST Anjali Car MD POINT OF CARE TEST EN TER/EDIT ORDERABLES Final Result * (ABNORMAL) Lipid Panel with Reflex to Direct LDL (05/16/2024 8:20 AM EDT) Triglycerides 148 <150 mg/dL [facility] Comment:Desirable Triglyceri de: less than 150 mg/dLBorderline High Triglyceride 150-199 mg/dLHigh Triglyceride: 200-499 mg/dLVery High Triglyceride: greater than or equal to 5OO mg/dL Cholesterol 143 <200 mg/dL [facility] Comment:Desirable Cholestero l: less than 200 mg/dLBorderline High Cholesterol: 200-239 mg/dLHigh Cholesterol: greater than 239 mg/dL LDL Cholesterol Calculated 82 <100 mg/dL [facility] Comment:Desirable LDL: less than 100 mg/dLNear Optimal/Above Optimal LDL: 110- 129 mg/dLBorderline High LDL: 130-159 mg/dLHigh LDL: 160-189 mg/dLVery High LDL: greater than or equal to 190 mg/dL HDL Cholesterol 32(L) >40 mg/dL [facility] Comment:Desirable HDL: great er than 40 mg/dL Note: This HDL assay may give artificially low results in patients with liver disease. Blood 05/16/2024 8:20 AM EDT 05/16/2024 11:09 AM EDT us Anjali Car MD LAB BLOOD ORDERABLES Final Result [facility] [address] [place] [phone] from Last 3 Months or Most Recently Relevant to Health Maintenance Insurance [facility] [employer] (HMO D-SNP) DAVID MCGRATH [id number] Care Teams Director Pharmacy Services Relationship Specialty Start Date End Date Anjali Jacome MD [address] [place] [phone] PCP - General Family Medicine 06/03/22 Coretta Grady, AsherD [address] [place] [phone] Pharmacist Internal Medicine 05/04/24
--- OUTSIDE RECORDS SUMMARY | 2025-01-23 09:23 | XMS_ITS | Encounter Summary ---
Author Organization [employer] Address 75 [facility] 7t [place] [address] Care Team Providers Care Coin Machine Assembler Name Role Phone Anjali Jacome MD Primary Care Provide r Coretta Grady PharmD Unavailable [phone]- [phone] Reason for Visit * Reason Comments Pre-visit Planning (Unable to reach for PVP screening and or LVM) Encounter Details Date Type Department Care Team ([facility] st Contact Info) Description 01/18/[address] [facility] MED[facility]INE [address] [place] [address] Anjali Jacome MD 230 [place], [place] [phone] Pre-visit Planning ((Unable to reach for PVP screening and or LVM)) Social History Tobacco Use Types Packs/Day Years [...] AM EDT documented as of this encounter Progress Notes * Lina Cisneros - 01/18/2025 9:03 AM EDT CC Lina placed outbound call to patient to complete pre-visit planning. No answer at this time. Patient name and were not confirmed. CC unable to leave a voice message. documented in this encounter Plan of Treatment Upcoming Encounters Date Type Department Care Team (Late st Contact Info) Description 01/26/2025 10:[address] EDT Office [address] [facility] MEDICINE [address] [place] [address] Anjali Jacome MD [address] [place] [address] documented as of this encounter Visit Diagnoses Not on filedocumented in this encounter Additional Health Concerns Assessment Noted Time PHQ-9 Depression Total Score: 0 04/14/20 24 9:38 AM EDT documented as of this encounter Care Teams Coin Machine Assembler Relationship Specialty Start Date End Date Anjali Jacome MD [address] [place] [address] PCP - General Family Medicine 06/03/22 Coretta Grady, AsherD [address] [place] [address] Pharmacist Internal Medicine 05/04/24 documented as of this encounter
== END 2025-01-23 09:44 | disposition home or self-care (01) ==
LOC: HO.HCS 08:56
PROVIDERS: PCP Internal Medicine; Visit Provider Nurse Practitioner Family
DX: I25.10 Atherosclerotic heart disease of native coronary artery without angina pectoris (principal); I10 Essential (primary) hypertension; E11.8 Type 2 diabetes mellitus with unspecified complications; E78.2 Mixed hyperlipidemia
CPT/HCPCS: 99214; G2211

== ENCOUNTER → 2025-01-23 08:55 | Outpatient (BNVA) | payer OTHER, SELFPAY | PROVIDERS: PCP Internal Medicine; Visit Provider Nurse Practitioner Family | DX: I25.10 Atherosclerotic heart disease of native coronary artery without angina pectoris (principal); I10 Essential (primary) hypertension; E11.8 Type 2 diabetes mellitus with unspecified complications; E78.2 Mixed hyperlipidemia | CPT/HCPCS: 99212 ==

== ENCOUNTER 2025-04-04 10:39 | Outpatient (REF) | payer OTHER, SELFPAY ==
--- OUTSIDE RECORDS SUMMARY | 2025-04-04 11:38 | XMS_ITS | Encounter Summary ---
Author Organization [employer] Address [address] [facility] 7t [place] [address] Care Team Providers Care Personnel Training Officer Name Role Phone Anjali Jacome MD Primary Care Provide r Coretta Grady PharmD Unavailable [phone] Jones Bhatt PharmD Unavailable [phone] Encounter Details Date Type Department Care Team (Late st Contact Info) Description 06/15/2023 Orders Only [facility] [address] [place] [address] Devi Dumont LPN Social History Tobacco Use [...] the past 12 months, has t he [employer] threatened to shut off services in your [...] Care Team (Late st Contact Info) Description 05/15/2025 9:00 AM EDT Office Visit [facility] [address] [place] [phone] Anjali Jacome MD [address] [place] [phone] 07/04/2025 10:00 AM EDT Medication Management [facility] [address] [place] [phone] Jones Bhatt, PharmD [address] [place] [address] documented as of this encounter Visit Diagnoses Not on filedocumented in this encounter Additional Health Concerns Assessment Noted Time PHQ-9 Depression Total Score: 0 02/05/20 23 2:18 PM EDT documented as of this encounter Care Teams Personnel Training Officer Relationship Specialty Start Date End Date Anjali Jacome MD [address] [place] [phone] PCP - General Family Medicine 06/03/22 Coretta Grady, PharmD [address] [place] [address] Pharmacist Internal Medicine 05/04/24 02/19/25 Jones Bhatt, PharmD [address] [place] [phone] Pharmacist Internal Medicine 02/20/25 documented as of this encounter
--- OUTSIDE RECORDS SUMMARY | 2025-04-04 11:38 | XMS_ITS | Clinical Summary ---
Author Organization [facility] Address [address] [place] [address] Phone Care Team Providers Care Girls Tennis Coach Name Role Phone Moe Nogueira Primary Care Provider Unavaila ble Allergies No [...] Mass Index - - Plan of Treatment Health Maintenance Due Date Last Done Comments Diabetes: Ophthalmology Exam 10/06/2020 Diabetes: Pedal Pulse Checked 10/06/2020 Diabetes: Sensory Foot Exam 10/06/2020 Diabetes: Visual Foot Exam 10/06/2020 Diabetes: Hemoglobin A1C 01/29/2025 025, 05/04/2024, 04/14/2024, Additional history exists Influenza Vaccine (#1) 2025 , 06/01/2022, 08/16/2019, Additional history exists Hepatitis B Vaccine Aged Out 03/17/2018, 10/18/2017, 09/14/2017 No longer eligible based on patient's age to complete this topic Pneumococcal Vaccine: 50+ Years Completed 06/01/2022, 11/11/2011, 07/16/2005 Pneumococcal Vaccine: Peds (0 to 5 Years) and At-Risk Patients (6 to 49 Years) Discontinued 06/01/2022, 11/11/2011, 07/16/2005 Insurance ([id number]) DAVID MCGRATH [id number] [facility] ([id number]) DAV[place] MCGRATH [id number] Care Teams Girls Tennis Coach Relationship Specialty Start Date End Date Moe Nogueira PCP - General Internal Medicine 04/01/21
[2025-04-04 14:40] LABS: Anion Gap 16 (12-20); Blood Urea Nitrogen 31 mg/dL (9-16); Calcium 9.8 mg/dL (8.4-10.2); Carbon Dioxide 22 mmol/L (22-29); Chloride 107 mmol/L (96-108); Cholesterol 124 mg/dL (<200); Estimated Glomerular Filt Rate 34; HDL Cholesterol 22 mg/dL (>40); Potassium 4.6 mmol/L (3.3-5.1); Sodium 140 mmol/L (135-145); Triglycerides 179 mg/dL (<150)
[2025-04-04 14:50] LABS: Microalbum/Creatinine Ratio Ur 128.1 ug/mg cr (<30)
== END 2025-04-04 10:40 | disposition home or self-care (01) ==
LOC: HO.HHCL 10:39
PROVIDERS: PCP Internal Medicine; Visit Provider Internal Medicine
DX: E11.22 Type 2 diabetes mellitus with diabetic chronic kidney disease (principal); N18.32 Chronic kidney disease, stage 3b; E78.2 Mixed hyperlipidemia; Z79.4 Long term (current) use of insulin
CPT/HCPCS: 36415; 80048; 80061; 82043; 82570

== ENCOUNTER → 2025-06-07 12:30 | Outpatient (REF) | payer OTHER, SELFPAY ==
--- NOTE | 2025-06-07 12:33 | CA_ITS ---
Transthoracic Echocardiogram Patient (Last, First, Middle): Solomon Mcgrath, Gender: Male Date of : 1940 Age: 84 Procedure Date: 06/07/2025 Procedure Type: Transthoracic Echocardiogram Location: OP Height: 160.02 cm Weight: 54.43 kg BSA: 1.56 m2 Heart Rate: 74 bpm BP: 120 / 60 mmHg Diagnostic Radiologist: SB Referring MD: Brandie Amaro FACE PAINTERSury Symptoms: I25.10 - Atherosclerotic heart disease of [place] coronary artery without... Study Quality: Adequate ECG Rhythm: Sinus Conclusions: - The left ventricular systolic function is normal. The calculated ejection fraction is 65% by biplane method. - There is moderate calcification of the aortic valve. There is no aortic valve regurgitation. Early aortic stenosis. - There is moderate mitral annular calcification. Findings Left Ventricle Normal left ventricular cavity size. There is normal left ventricular wall thickness. The left ventricular systolic function is normal. The calculated ejection fraction is 65% by biplane method. There is no evidence of regional wall motion abnormalities. Evidence suggests grade I (mild) diastolic dysfunction. Right Ventricle Normal right ventricular cavity size and systolic function. Atria Both atria are normal in size. Aortic Valve There is moderate calcification of the aortic valve. There is no aortic valve regurgitation. Early aortic stenosis. Mitral Valve There is moderate mitral annular calcification. There is no mitral valve regurgitation. There is no mitral valve stenosis. Pulmonic Valve The pulmonic valve was not well visualized. Tricuspid Valve There is mild tricuspid valve regurgitation. There is no evidence of pulmonary hypertension. Great Vessels The asc aorta is normal in size. Venous The inferior vena cava is normal in size and collapses greater than 50% with inspiration. Pericardium/Pleural There is no evidence of pericardial effusion. Prior Study Comparison Changes noted compared to prior study dated: 03/05/2020. Progression of valvular calcification. Measurements 2D Linear Measurements IVSd: 0.63 0.6-0.9/0.6-1.0 cm LVIDd: 3.94 3.9-5.3/4.2-5.9 cm LVIDd Index: 2.53 2.4-3.2/2.2-3.1 cm/m2 LVIDs: 3.06 2.0-3.6 cm LVPWd: 0.53 0.7-1.1 cm LA Diam: 2.70 2.7-3.8/3.0-4.0 cm LAIDs Index: 1.73 1.5-2.3 cm/m2 LV Mass: 74.51 67-162/88-224 g LV Mass Index: 47.76 43-95/49-115 g/m2 LVOT Diam: 2.00 3.0+(-)1.3 cm 2D Systolic Function EF 4C: 67.50 >55% EF 2C: 57.60 >55% EF BiP: 64.70 >55% Mitral Valve MV VTI: 0.37 MV Pk Wing: 1.56 MV Mn Wing: 0.99 MV Pk Grad: 10.00 MV Mn Grad: 4.00 MV Pk E: 1.21 MV PK A: 1.55 MV Decel Time: 283.00 E/A: 0.80 E'Lateral: 5.33 E'Medial: 5.98 E/E' Med: 20.20 E/E' Lat: 22.70 PHT: 83.00 MVA PHT: 2.65 MVA Continuity: 2.18 Decel Ashe: 4.26 Aortic Valve AoV Pk Wing: 1.93 AoV Mn Wing: 1.35 AoV VTI: 0.45 AoV Pk Grad: 15.00 Aov Mn Grad: 9.00 ALFREDO Cont.VTI: 1.79 LVOT LVOT Pk Wing: 1.06 LVOT Mn Wing: 0.80 LVOT VTI: 0.26 LVOT Pk Grad: 4.00 LVOT Mn Grad: 3.00 LVOT Diam: 2.00 LVOT Area: 3.14 Diastolic Function MV Pk E: 1.21 MV Pk A: 1.55 E/A: 0.80 E'Medial: 5.98 E/E' Med: 20.20 E' Laterial: 5.33 E/E' Lat: 22.70 Right Ventricle TAPSE (mm): 28.60 TVS' Wing: 14.40 Tricuspid Valve TR Pk Wing: 2.76 TR Pk Grad: 30.00 RA Press: 3.00 RVSP: 33.00 Great Vessels Aorta Sinus of Valsalva: 3.10 2.0-3.5 cm Ao Asc: 3.30 2.1-3.4 cm Pulmonary Veins Pulm Vein S/D 1.80 Pulmonary Valve PV Pk Wing: 0.98 Peak PV Grad: 4.00 Updated in Other Vendor System with Status of Final Ben Tomlinson MD electronically signed on 06/09/2025 1:27:04 PM with status of Final
--- OUTSIDE RECORDS SUMMARY | 2025-06-07 14:00 | XMS_ITS | Encounter Summary ---
Author Organization [employer] Address [address] [facility] 7t [place] [address] Care Team Providers Care Splunk Architect Name Role Phone Anjali Jacome MD Primary Care Provide r Coretta Grady PharmD Unavailable [phone] Jones Bhatt PharmD Unavailable [phone] Reason for Visit * Reason Onset Date Comments PA 10/19/2022 Encounter Details Date Type Department Care Team ([facility] st Contact Info) Description 10/19/2022 Telephone [facility] MEDICINE [address] [place] [address] Anjali Jacome MD [address] [place] [address] PA Social History Tobacco Use Types Packs/Day [...] Care Team (Late st Contact Info) Description 07/04/2025 10:00 AM EDT Medication Management [address] [address] Jones Bhatt, PharmD [address] [place] [phone] 07/31/2025 10:00 AM EST Office Visit [address] [address] Anjali Jacome MD [address] [place] [address] [phone] documented as of this encounter Visit Diagnoses Not on filedocumented in this encounter Care Teams Splunk Architect Relationship Specialty Start Date End Date Anjali Jacome MD [address] [place] [phone] PCP - General Family Medicine 06/03/22 Coretta Grady, PharmD [address] [place] [phone] Pharmacist Internal Medicine 05/04/24 02/19/25 Jones Bhatt, PharmD [address] [place] [phone] Pharmacist Internal Medicine 02/20/25 documented as of this encounter
--- OUTSIDE RECORDS SUMMARY | 2025-06-07 14:00 | XMS_ITS | Encounter Summary ---
Author Organization [employer] Address [address] [facility] [address] [address] 7t [place] [address] Care Team Providers Care Net Developer Name Role Phone Anjali Jacome MD Primary Care Provide r Coretta Grady PharmD Unavailable [phone] Jones Bhatt PharmD Unavailable [phone] Encounter Details Date Type Department Care Team (Late st Contact Info) Description 07/05/2023 Telephone [facility] MEDICINE [address] [place] [address] Anjali Jacome MD [address] [place], [place] [phone] Social History Tobacco Use Types Packs/Day Years [...] Description 07/04/2025 10:00 AM EDT Medication Management [facility] MED[facility]INE [address] [place] [address] Jnoes Bhatt, AsherD [address] [place] [phone] 07/31/2025 10:00 AM EST Office Visit [facility] [address] [place] [address] Anjali Jacome MD [address] [place] [phone] documented as of this encounter Visit Diagnoses Not on filedocumented in this encounter Additional Health Concerns Assessment Noted Time PHQ-9 Depression Total Score: 0 02/05/20 23 2:18 PM EDT documented as of this encounter Care Teams Net Developer Relationship Specialty Start Date End Date Anjali Jacome MD [address] [place] [phone] PCP - General Family Medicine 06/03/22 Coretta Grady, AsherD [address] [place] [phone] Pharmacist Internal Medicine 05/04/24 02/19/25 Jones Bhatt, PharmD [address] [place] [phone] Pharmacist Internal Medicine 02/20/25 documented as of this encounter
--- OUTSIDE RECORDS SUMMARY | 2025-06-07 14:00 | XMS_ITS | Encounter Summary ---
Author Organization [employer] Address [address] 7[address] [place] [address] Care Team Providers Care Autistic Teacher Name Role Phone Anjali Jacome MD Primary Care Provide r Coretta Grady PharmD Unavailable [phone] Jones Bhatt PharmD Unavailable [phone] Encounter Details Date Type Department Care Team (Late st Contact Info) Description 06/15/2023 Orders Only [facility] MED & PEDS [address] [place] [address] Devi Dumont LPN Social History Tobacco Use [...] the past 12 months, has t he Last 2 Left, gas, oil or water Ban[employer]! threatened to shut off services in your [...] Description 07/04/2025 10:00 AM EDT Medication Management [facility] MEDICINE [address] [place] [phone] Jones Bhatt, PharmD [address] [place] [phone] 07/31/2025 10:00 AM EST Office Visit [facility] MEDICINE [address] [place] [address] Anjali Jacome MD [address] [place] [phone] documented as of this encounter Visit Diagnoses Not on filedocumented in this encounter Additional Health Concerns Assessment Noted Time PHQ-9 Depression Total Score: 0 02/05/20 23 2:18 PM EDT documented as of this encounter Care Teams Autistic Teacher Relationship Specialty Start Date End Date Anjali Jacome MD [address] [place] [phone] PCP - General Family Medicine 06/03/22 Coretta Grady, PharmD [address] [place] [phone] Pharmacist Internal Medicine 05/04/24 02/19/25 Jones Bhatt, PharmD [address] [place] [phone] Pharmacist Internal Medicine 02/20/25 documented as of this encounter
--- OUTSIDE RECORDS SUMMARY | 2025-06-07 14:00 | XMS_ITS | Clinical Summary ---
Author Organization [facility] Address [address] [place] [address] Phone Care Team Providers Care Sales And Business Development Manager Name Role Phone Moe Nogueira Primary Care [...] Care Team (Late st Contact Info) Description 08/16/2025 3:00 PM EST Office Visit [facility] [address] [place] [address] Evan Chauhan MD [address] [facility] [address] [place] [address] Health Maintenance Due Date Last Done Comments Diabetes: Ophthalmology Exam 10/06/2020 Diabetes: Pedal Pulse Checked 10/06/2020 Diabetes: Sensory Foot Exam 10/06/2020 Diabetes: Visual Foot Exam 10/06/2020 Influenza Vaccine (#1) 2025 4, 06/01/2022, 08/16/2019, Additional history exists Diabetes: Hemoglobin A1C 05/23/202502/20/2 025, 11/01/2024, 05/04/2024, Additional history exists Hepatitis B Vaccine Aged Out 03/17/2018, 10/18/2017, 09/14/2017 No longer eligible based on patient's age to complete this topic Pneumococcal Vaccine: 50+ Years Completed 06/01/2022, 11/11/2011, 07/16/2005 Pneumococcal Vaccine: Peds (0 to 5 Years) and At-Risk Patients (6 to 49 Years) Discontinued 06/01/2022, 11/11/2011, 07/16/2005 [place] [id number] [facility] ([id number]) [facility] ([id number]) Care Teams Sales And Business Development Manager Relationship Specialty Start Date End Date Moe Nogueira PCP - General Internal Medicine 04/01/21
--- OUTSIDE RECORDS SUMMARY | 2025-06-07 14:00 | XMS_ITS | Encounter Summary ---
Author Organization [employer] Address [address] [facility] [address] 7t [place] [address] Care Team Providers Care Electric Spot Welder Name Role Phone Anjali Jacome MD Primary Care Provide r Coretta Grady PharmD Unavailable [phone] Jones Bhatt PharmD Unavailable [phone] Reason for Visit * Reason Comments Med Refill Encounter Details Date Type Department Care Team (Late st Contact Info) Description 08/08/2023 Refill [facility] MEDICINE [address] [place] [address] Anjali Jacome MD [address] [place], [place] [phone] Social History Tobacco Use Types Packs/Day Years [...] Description 07/04/2025 10:00 AM EDT Medication Management [facility] MEDICINE [address] [place] [phone] Jones Bhatt, PharmD [address] [place] [phone] 07/31/2025 10:00 AM EST Office Visit [facility] MEDICINE [address] [place] [phone] Anjali Jacome MD [address] [place] [phone] documented as of this encounter Visit Diagnoses Not on filedocumented in this encounter Additional Health Concerns Assessment Noted Time PHQ-9 Depression Total Score: 0 02/05/20 23 2:18 PM EDT documented as of this encounter Care Teams Electric Spot Welder Relationship Specialty Start Date End Date Anjali Jacome MD [address] [place] [address] [phone] PCP - General Family Medicine 06/03/22 Coretta Grady, AsherD [address] [place] [address] [phone] Pharmacist Internal Medicine 05/04/24 02/19/25 Jones Bhatt, PharmD [address] [place] [address] Pharmacist Internal Medicine 02/20/25 documented as of this encounter
--- OUTSIDE RECORDS SUMMARY | 2025-06-07 14:00 | XMS_ITS | Clinical Summary ---
Author Organization [email or web address] Address [address] [facility] 7t [place] [address] Care Team Providers Care Floorman Name Role Phone Anjali Jacome MD Primary Care Provide r Jones Bhatt PharmD Unavailable [phone] Allergies Active Allergy Reactions Criticality Noted Date Comments Dapagliflozin Itching 10/02/2024 Reported to pharmacist on 10/02/2024 Medications glucose (Glutose) 40 % gel oral gel [...] disease, with long-term current use of insulin ([facility]) TEST BLOOD SUGAR TWICE DAILY 100 each 11 07/20/20 24 Active FREESTYLE LITE test stripIndications :Type 2 diabetes mellitus with stage 3b chronic kidney disease, with long-term current use of insulin ([facility]) Test blood sugar twice daily 100 strip 11 11/01/19 25 Active metoprolol succinate XL (Toprol-XL) 50 MG 24 hr tablet Take 50 mg by mouth in the morning. 12/19/19 25 Active empagliflozin (Jardiance) 10 MGIndications:Ty pe 2 diabetes mellitus with stage 3b chronic kidney disease, with long-term current use of insulin ([facility]) Take 1 tablet (10 mg) by mouth Once per day. 30 tablet 5 02/21/20 25 Active Dulaglutide (Trulicity) 0.75 MG/0.5ML solution auto-injectorInd ications:Type 2 diabetes mellitus with stage 3b chronic kidney disease, with long-term current use of insulin (HCC) INJECT ONE PEN (=0.75MG) SUBCUTANEOUSLY ONCE A WEEK DIRECTED 2 mL 5 03/16/20 25 Active omeprazole (PriLOSEC) [address] Brian ns:Unspecified abdominal pain TAKE 1 CAPSULE BY MOUTH EVERY MORNING BEFORE MEALS 90 capsule 1 04/10/20 25 Active Aspirin Low Dose 81 MG EC tablet TAKE 1 TABLET BY MOUTH EVERY MORNING 90 tablet 1 04/10/20 25 Active atorvastatin (Lipitor) 80 MG tablet TAKE 1 TABLET BY MOUTH AT BEDTIME 90 tablet 1 04/10/20 25 Active Active Problems Problem Noted Date [...] Proteinuria 10/30/2020 Stage 3 chronic kidney disease (CMS/HCC) 021 Coronary arteriosclerosis 06/28/2017 Assessment & Plan (11/01/2024 [...] for him CGM and refer him to [facility] - Diabetic eye exam: has upcoming appointment [...] Encounters Date Type Department Care Team Description 05/15/2025 Telephone [facility] MEDICINE [address] [place] [address] Anjali Jacome MD No Show 05/14/2025 Telephone [facility] MEDICINE [address] [place] [address] Anjali Jacome MD chart prep 04/10/2025 Refill [facility] MEDICINE [address] [place] [address] Anjali Jacome MD Unspecified abdominal pain 04/04/2025 Telephone [facility] MEDICINE [address] [place] [address] Anjali Jacome MD 04/04/2025 Orders Only [facility] MEDICINE [address] [place] [address] Anjali Jacome MD 04/04/2025 Travel 03/07/2025 Refill [facility] MEDICINE [address] [place] [address] Coretta Grady, PharmD Type 2 diabetes mellitus with stage 3b chronic kidney disease, with long-term current use of insulin ([facility]) from Last 3 Months Immunizations Immunization Administration [...] tox oid, preservative free, adsorbed 11/11/2011,09/07/2001 Tdap 02/20/2025,09/19/2013 Zoster, live 09/14/2017 Social History Tobacco Use [...] Sign Reading Time Taken Comments Blood Pressure 126/68 04/04/2025 10:24 AM EDT Pulse 77 04/04/2025 10:24 AM EDT Temperature 35.9 C (96.6 F) 11/01/2024 8:54 AM EST Respiratory Rate 20 11/01/2024 8:54 AM EST [...] Description 07/04/2025 10:00 AM EDT Medication Management [facility] MEDICINE [address] [place] [address] Jones Bhatt, PharmD [address] [place] [address] 07/31/2025 10:00 AM EST Office Visit [facility] MEDICINE [address] [place], [place] [phone] Anjali Jacome MD [address] [place], [place] [phone] Health Maintenance Due Date Last Done Comments Diabetes: Foot Exam 1950 Eye Exam 1950 Alcohol/Substance Use Screening 1952 Zoster Vaccines (2 of 3) 11/09/2017 09/14/2017 SDOH Screening 01/29/2024 01/28/2023 Depression Screening 04/14/2025 04/14/2024, 04/14/20 24 COVID-19 Vaccine ( - season) 2025 01/22/2022, 07/22/2021, 12/04/2020 Influenza Vaccine (#1) 2025 , 06/01/2022, 06/01/2022, Additional history exists Diabetes: Hemoglobin A1C 05/23/2025 025, 11/01/2024, 07/17/2024, Additional history exists Tobacco Screening 11/01/2025 11/01/2024 Lipid Panel 04/04/2026 04/04/2025, 05/07, 02/12/2023, Additional history exists DTaP/Tdap/Td Vaccines (3 - Td or Tdap) 02/20/2035 02/20/2025, 09/19/2013, 11/11/2011, Additional history exists Hepatitis B Vaccines Completed 03/17/2018, 10/18/2017, 09/14/2017 Pneumococcal Vaccine: 50+ Years Completed 06/01/2022, 11/11/2011, 07/16/2005 RSV Patients and Patients Aged 60 years or older Completed 05/04/2024 HIB Vaccines Aged Out No longer eligi [...] Procedure Name Priority Date/Time Associated Diagnosis Comments ALBUMIN, RANDOM URINE W/CREATININE Routine 04/04/2025 11:07 AM EDT LIPID PANEL, STANDARD Routine 04/04/2025 11:07 AM EDT BASIC METABOLIC PANEL Routine 04/04/2025 11:07 AM EDT POCT GLYCATED HEMOGLOBIN, TOTAL Routine 02/20/2025 10:44 AM EDT Type 2 diabetes mellitus with stage 3b chronic kidney disease, with long-term current use of insulin ([facility]) from Last 3 Months or Most Recently Relevant to Health Maintenance Results * (ABNORMAL) Albumin, Random Urine W/Creatinine (04/04/2025 11:07 AM EDT) Creatinine, Urine 103.82 mg/dL [facility] Microalbumin Urine 133.0 mg/L H [facility] Microalbum Creatinine Ratio Ur 128.1(H) <30 ug/mg cr [facility] Comment:Albumin/Creatinine R atio Reference Ranges: Normal: < 30 ug/mg creatinine Microalbuminuria: 30 - 300 ug/mg creatinineClinical Albuminuria: > 300 ug/mg creatinine 04/04/2025 11:0 7 AM EDT 04/04/2025 1:05 PM EDT us Anjali Car MD LAB URINE ORDERABLES Final Result Performing Organization Address [facility] Co de Phone Number [facility] [address] [place] [phone] * (ABNORMAL) Lipid Panel, Standard (04/04/2025 11:07 AM EDT) Triglycerides 179(H) <150 mg/dL [facility] Comment:Desirable Triglyceri de: less than 150 mg/dLBorderline High Triglyceride 150-199 mg/dLHigh Triglyceride: 200-499 mg/dLVery High Triglyceride: greater than or equal to 5OO mg/dL Cholesterol 124 <200 mg/dL [facility] Comment:Desirable Cholestero l: less than 200 mg/dLBorderline High Cholesterol: 200-239 mg/dLHigh Cholesterol: greater than 239 mg/dL LDL Cholesterol Calculated 67 <100 mg/dL [facility] Comment:Desirable LDL: less than 100 mg/dLNear Optimal/Above Optimal LDL: 110- 129 mg/dLBorderline High LDL: 130-159 mg/dLHigh LDL: 160-189 mg/dLVery High LDL: greater than or equal to 190 mg/dL HDL Cholesterol 22(L) >40 mg/dL [facility] Comment:Desirable HDL: great er than 40 mg/dL Note: This HDL assay may give artificially low results in patients with liver disease. 04/04/2025 11:0 7 AM EDT 04/04/2025 1:19 PM EDT us Generic External Data Provider LAB BLOOD ORDERAB LES Final Result Performing Organization Address [facility]/ZIP Co de Phone Number [facility] [address] [place] [phone] * (ABNORMAL) Basic Metabolic Panel (04/04/2025 11:07 AM EDT) Sodium 140 135 - 145 mmol/L [facility] Potassium 4.6 3.3 - 5.1 mmol/L [facility] Chloride 107 96 - 108 mmol/L [facility] Carbon Dioxide 22 22 - 29 mmol/L [facility] Anion Gap 16 12 - 20 [facility] Urea Nitrogen (BUN) 31(H) 9 - 16 mg/dL [facility] Creatinine, Serum 1.91(H) 0.5 - 1.4 mg/dL [facility] Estimated Glomerular Filt Rate 34 [facility] Comment:Chronic Kidney Disea se: Estimated GFR < 60 mL/min/[id number] Kidney Disease: Estimated GFR < 15 mL/min/1.73m2 Glucose 128(H) 60 - 115 mg/dL [facility] Calcium 9.8 8.4 - 10.2 mg/dL [facility] 04/04/2025 11:0 7 AM EDT 04/04/2025 1:19 PM EDT us Anjali Car MD LAB BLOOD ORDERABLES Final Result [facility] [address] [place] [phone] * (ABNORMAL) POCT HGB A1C (02/20/2025 10:44 AM EDT) Hemoglobin A1C 7.9(A) 4.0 - 6.0 % QC Media Lot # [id number] Lot# Expiration Date [id number] Blood 02/20/2025 10:4 4 AM EDT Anjali Car MD POINT OF CARE TEST EN TER/EDIT ORDERABLES Final Result from Last 3 Months or Most Recently Relevant to Health Maintenance Insurance [facility] CARE HOME OPTIONS (O D-SNP) DAVID [place]GRATH [id number] Care Teams Floorman Relationship Specialty Start Date End Date Anjali Jacome MD [address] [place] [phone] PCP - General Family Medicine 06/03/22 Jones Bhatt, AsherD [address] [place], [place] Pharmacist Internal Medicine 02/20/25
--- OUTSIDE RECORDS SUMMARY | 2025-06-07 14:00 | XMS_ITS | Encounter Summary ---
Author Organization [employer] Address [address] [facility] 7t [place] [address] Care Team Providers Care Sausage Linker Name Role Phone Anjali Jacome MD Primary Care Provide r Coretta Grady PharmD Unavailable [phone] Jones Bhatt PharmD Unavailable [phone] Encounter Details Date Type Department Care Team (Late Contact Info) Description 11/09/2022 Orders Only [facility] CHC MED & PEDS [address] [place] [address] Jane Howell LPN Social History Tobacco Use [...] Department Care Team (Late Contact Info) Description 07/04/2025 10:00 AM EDT Medication Management [facility] MEDICINE [address] [place] [phone] Jones Bhatt PharmD [address] [place], [place] [phone] 07/31/2025 10:00 AM EST Office Visit [facility] MEDICINE [address] [place] [address] [phone] Anjali Jacome MD [address] [place] [phone] documented as of this encounter Visit Diagnoses Not on filedocumented in this encounter Care Teams Sausage Linker Relationship Specialty Start Date End Date Anjali Jacome MD [address] [place] [phone] PCP - General Family Medicine 06/03/22 Coretta Grady, PharmD [address] [place] [phone] Pharmacist Internal Medicine 05/04/24 02/19/25 Jones Bhatt, AsherD [address] [place] [phone] Pharmacist Internal Medicine 02/20/25 documented as of this encounter
--- OUTSIDE RECORDS SUMMARY | 2025-06-07 14:00 | XMS_ITS | Encounter Summary ---
Author Organization [employer] Address 75 [facility] 7t [place] [address] Care Team Providers Care Aboriginal Education Worker Coordinator Name Role Phone Anjali Jacome MD Primary Care Provide r Coretta Grady PharmD Unavailable [phone] Jones Bhatt PharmD Unavailable [phone] Reason for Visit * Reason Comments Med Refill Encounter Details Date Type Department Care Team (Late st Contact Info) Description 10/26/2023 Refill [facility] [address] [place], [place] [phone] Anjali Jacome MD [address] [place], [place] [phone] Type 2 diabetes mellitus with other specified complication, unspecified whether custodial insulin use ([facility]) Social History Tobacco Use Types Packs/Day Years [...] Description 07/04/2025 10:00 AM EDT Medication Management [facility] [address] [place] [address] Jones Bhatt, AsherD [address] [place] [address] 07/31/2025 10:00 AM EST Office Visit [facility] [address] [place] [address] Anjali Jacome MD [address] [place] [phone] documented as of this encounter Visit Diagnoses Diagnosis Type 2 diabetes mellitus with other specified complication, unspecified whether moth exterminator insulin use (HCC) documented in this encounter Additional Health Concerns Assessment Noted Time PHQ-9 Depression Total Score: 0 02/05/20 23 2:18 PM EDT documented as of this encounter Care Teams Aboriginal Education Worker Coordinator Relationship Specialty Start Date End Date Anjali Jacome MD [address] [place] [phone] PCP - General Family Medicine 06/03/22 Coretta Grady, AsherD [address] [place] [phone] Pharmacist Internal Medicine 05/04/24 02/19/25 Jones Bhatt, PharmD [address] [place] [address] 89003 Pharmacist Internal Medicine 02/20/25 documented as of this encounter
--- OUTSIDE RECORDS SUMMARY | 2025-06-07 14:00 | XMS_ITS | Encounter Summary ---
Author Organization [employer] Address 75 [facility] 7t [place] [address] Care Team Providers Care Transfer Station Attendant Name Role Phone Anjali Jacome MD Primary Care Provide r Coretta Grady PharmD Unavailable [phone] Jones Bhatt PharmD Unavailable [phone] Reason for Visit * Reason Onset Date Comments HDF 08/02/2023 Encounter Details Date Type Department Care Team ([facility] st Contact Info) Description 08/02/2023 Telephone [facility] [address] [place], [place] [phone] Anjali Jacome MD [address] [place], [place] [phone] HDF Social History Tobacco Use Types Packs/Day [...] Urine infection and pneumonia. Patient hospitalized at [facility] and discharged on 07/24. Patient advised will forward to triage nurse for follow up and appointment. PCP Dr. Mosley documented in this encounter Plan of Treatment Upcoming Encounters Date Type Department Care Team (Late st Contact Info) Description 07/04/2025 10:00 AM EDT Medication Management [facility] [address] [place] [address] Jones Bhatt, PharmD [address] [place] [address] 07/31/2025 10:00 AM EST Office Visit [facility] [address] [place] [address] Anjali Jacome MD [address] [place] [address] documented as of this encounter Visit Diagnoses Not on filedocumented in this encounter Additional Health Concerns Assessment Noted Time PHQ-9 Depression Total Score: 0 02/05/20 23 2:18 PM EDT documented as of this encounter Care Teams Transfer Station Attendant Relationship Specialty Start Date End Date Anjali Jacome MD [address] [place] [phone] PCP - General Family Medicine 06/03/22 Coretta Grady, PharmD [address] [place] [address] 79455 Pharmacist Internal Medicine 05/04/24 02/19/25 Jones Bhatt, AsherD [address] [place] [address] 57[address] Pharmacist Internal Medicine 02/20/25 documented as of this encounter
== END ==
LOC: HO.CARD 12:30
PROVIDERS: PCP Internal Medicine; Visit Provider Nurse Practitioner Family
DX: I25.10 Atherosclerotic heart disease of native coronary artery without angina pectoris (principal)
CPT/HCPCS: 93306

== ENCOUNTER → 2025-06-07 12:33 | Outpatient (BNV) | payer OTHER, SELFPAY | PROVIDERS: PCP Internal Medicine; Visit Provider Internal Medicine | DX: I34.81 Nonrheumatic mitral (valve) annulus calcification (principal); I35.8 Other nonrheumatic aortic valve disorders; I35.0 Nonrheumatic aortic (valve) stenosis | CPT/HCPCS: 93306 ==

== ENCOUNTER 2025-07-09 12:03 | Outpatient (REF) | payer OTHER, SELFPAY ==
--- NOTE | ~2025-07-09 | XR_ITS ---
EXAMINATION: XR KNEE, RIGHT CLINICAL INFORMATION: atraumatic right posterior knee pain COMPARISON: None available. TECHNIQUE: Three views of the right knee. FINDINGS: Moderate vascular calcifications are present. There is a small enthesophyte at the quadriceps attachment on patella. There is minimal medial greater than lateral joint space narrowing. There is no joint effusion. Faint density in the lateral greater than medial joint line could represent chondrocalcinosis. Minute marginal osteophyte is present at the lateral patellofemoral joint and tibial plateau. XR/XR knee RT 3V IMPRESSION: Minimal degenerative change. Electronically signed by: Stefano Dior MD 07/09/2025 12:33 PM EST
--- NOTE | ~2025-07-09 | US_ITS ---
EXAMINATION: US TRIPLEX LOWER EXTREMITY, RIGHT CLINICAL INFORMATION: Right calf pain and tenderness COMPARISON: None available. TECHNIQUE: Color-flow triplex imaging with spectral analysis and compression Doppler were performed on the right lower extremity. FINDINGS: Respiratory variation, normal compression and augmented flow are noted throughout the right lower extremity. The visualized common femoral vein, superficial femoral vein, profunda femoral vein, popliteal vein and midcalf peroneal and posterior tibial venous segments show no evidence of deep venous thrombosis. US/US venous duplex LE RT IMPRESSION: No evidence of deep venous thrombosis involving the right lower extremity. Electronically signed by: Stefano Dior MD 07/09/2025 12:46 PM EST
--- OUTSIDE RECORDS SUMMARY | 2025-07-09 09:20 | XMS_ITS | Encounter Summary ---
Author Organization [employer] Address 75 [facility] 7t [place] [address] Care Team Providers Care Paper Coating Machine Operator Name Role Phone Anjali Jacome MD Primary Care Provide r Jones Bhatt PharmD Unavailable [phone] Reason for Referral * Imaging (STAT) - Authorized Specialty Diagnoses / Procedures Referred By Contac t Referred To Contact Cardiology Diagnoses Right calf pain Procedures Vascular US lower extremity venous duplex right Charles Bates MD [address] [place] [address] Phone: tel: fax: [address] Phone: tel: fax: Referral ID Status Reason Start Date Expiration Date Visits Requested Visits Authorized [id number] Authorized Perform Procedure 07/09/2025 07/09/2026 1 1 Reason for Visit * Reason Comments Knee Pain Encounter Details Date Type Department Care Team (Late st Contact Info) Description 07/09/2025 9:20 AM EST Office Visit [facility] [address] [place] [address] [phone] Charles Bates MD [address] [place] [address] [phone] Right calf pain (Primary Dx); Acute pain of right knee; Essential hypertension Social History Tobacco Use Types Packs/Day Years [...] AM EDT documented as of this encounter Last Filed Vital Signs Vital Sign Reading Time Taken Comments Blood Pressure 142/91 07/09/2025 9:09 AM EST Pulse 103 07/09/2025 9:08 AM EST Temperature 36.6 C (97.9 F) 07/09/2025 9:08 AM EST Respiratory Rate 18 07/09/2025 9:08 AM EST Oxygen Saturation - - Inhaled Oxygen Concentration - - Weight 63.7 kg (140 lb 6.4 oz) 07/09/2025 9:08 A M EST Height 160 cm (5' 3 ) 07/09/2025 9:08 AM EST Body Mass Index 24.87 07/09/2025 9:08 AM EST documented in this encounter Progress Notes * Charles Bates MD - 07/09/2025 9:20 AM EST Subjective Patient ID: Solomon Caicedo is a 84 y.o. male. Field Investigator: Dulce HPI Here with . 2 days ago Solomon had onset of right knee and calf pain described as a cramp that hurts more at night in bed, occasionally wakes him.. Pain is worse when resting in bed, better with weight bearing. Knee brace helps sometimes. No trauma, joint swelling, fever, chills, rash, tick bite, family history of gout. Lives with . Former smoker. Patient Active Problem List Diagnosis Date Noted Sebaceous cyst 04/14/2024 Hospital discharge follow-up 08/18/2023 Renal osteodystrophy 11/10/2021 Diabetic nephropathy associated with type 2 diabetes mellitus (HCC) 10/30/2020 Proteinuria 10/30/2020 Stage 3 chronic kidney disease (CMS/HCC) (HCC) 10/30/2020 Coronary arteriosclerosis 06/28/2017 Essential hypertension 08/22/2013 Benign prostatic hyperplasia 04/20/2012 Gastroesophageal reflux disease 04/20/2012 Mild nonproliferative diabetic retinopathy (HCC) 04/20/2012 Mixed hyperlipidemia 04/20/2012 Type 2 diabetes mellitus with diabetic chronic kidney disease (HCC) 04/20/2012 The following portions of the chart were reviewed this encounter and updated as appropriate: Tobacco Allergies Meds Problems Med Hx Surg Hx Fam Hx Review of Systems Constitutional: Negative for fever. Respiratory: Negative for shortness of breath. Cardiovascular: Negative for chest pain. Gastrointestinal: Negative for abdominal pain. Musculoskeletal: Positive for arthralgias. Skin: Negative for rash. Neurological: Negative for headaches. Objective Physical Exam Constitutional: Appearance: Normal appearance. HENT: Nose: Nose normal. Eyes: Pupils: Pupils are equal, round, and reactive to light. Comments: Bilateral pterygium Cardiovascular: Rate and Rhythm: Normal rate and regular rhythm. Pulses: Dorsalis pedis pulses are 2+ on the right side. Heart sounds: No murmur heard. Pulmonary: Effort: Pulmonary effort is normal. Breath sounds: Normal breath sounds. Musculoskeletal: General: Normal range of motion. Cervical back: No tenderness. Comments: Right knee: Posterior tenderness with full range of motion and no appreciable joint effusion or instability. Tenderness to palpation over the right calf area. Skin: Findings: No rash. Neurological: Mental Status: He is alert. Gait: Gait is intact. Psychiatric: Mood and Affect: Mood normal. Behavior: Behavior normal. Procedures Assessment/Plan Diagnoses and all orders for this visit: Right calf pain Continue Tylenol as needed. Prescribed tizanidine to use at bedtime as needed. Stat venous Doppler ultrasound of the right lower extremity ordered to rule out DVT. Return to clinic if not improving - Vascular US lower extremity venous duplex right; Future Acute pain of right knee As above. Right knee x-rays ordered. Will call patient with results If venous Doppler ultrasound is negative and knee pain persist will refer to orthopedic surgery. - XR Knee 3 Views Right; Future Essential hypertension Has home BP monitor. Reviewed BP parameters, given written BP log that includes BP parameters, to keep daily. Call if BP readings are elevated. Other orders - tiZANidine (Zanaflex) 2 MG tablet; Take 1 tablet (2 mg) by mouth if needed at bedtime for muscle spasms. documented in this encounter Plan of Treatment Upcoming Encounters Date Type Department Care Team (Late st Contact Info) Description 07/18/2025 10:00 AM EST Medication Management [facility] [address] [place] [phone] Jones Bhatt, PharmD [address] [place] [address] 07/31/2025 10:00 AM EST Office Visit [facility] [address] [place] [address] Anjali Jacome MD [address] [place] [address] 09/13/2025 10:00 AM EST Office Visit [address] [address] Anjali Jacome MD [address] [place] [address] documented as of this encounter Procedures Procedure Name Priority Date/Time Associated Diagnosis Comments XR KNEE 3 VIEWS RIGHT Routine 07/09/2025 1:19 PM EST Acute pain of right knee documented in this encounter Results * XR Knee 3 Views Right (07/09/2025 1:19 PM EST) Anatomical Region Laterality Modality Lower Extremities, Knee Right Radiogra phic Imaging 07/09/2025 1:19 PM EST Narrative 07/09/2025 12:36 PM EST [facility] [address] [place] [address] XRay Report Signed Patient: Solomon Mcgrath MR#: [id number] : 1940 Acct:[id number] Age/Sex: 84 / M ADM Date: 07/09/25 Loc: HO.US Attending Dr: Charles Bates MD Ordering Physician: CHARLES BATES MD Date of Service: 07/09/25 Procedure(s): XR knee RT 3V Accession Number(s): [id number] cc: CHARLES BATES MD; Anjali Jacome MD Reason for Exam: atraumatic right posterior knee pain EXAMINATION: XR KNEE, RIGHT CLINICAL INFORMATION: atraumatic right posterior knee pain COMPARISON: None available. TECHNIQUE: Three views of the right knee. FINDINGS: Moderate vascular calcifications are present. There is a small enthesophyte at the quadriceps attachment on patella. There is minimal medial greater than lateral joint space narrowing. There is no joint effusion. Faint density in the lateral greater than medial joint line could represent chondrocalcinosis. Minute marginal osteophyte is present at the lateral patellofemoral joint and tibial plateau. XR/XR knee RT 3V IMPRESSION: Minimal degenerative change. Electronically signed by: Stefano Dior MD 07/09/2025 12:33 PM EST Dictated By: Stefano Dior MD Signed By: <Electronically signed by Stefano Dior MD in OV> 07/09/25 1233 DD/ 1319 TD/TT: 07/09/25 122 Chief Information Officer: Procedure Note Martater, Image - 07/09/[address] [address] XRay Report Signed Patient: Solomon McgrathMR#: [id number] : 1940cct:[id number] Age/Sex: 84 / MADM Date: 07/09/25 Loc: . Attending Dr: Charles Bates MD Ordering Physician: CHARLES BATES MD Date of Service: 07/09/25 Procedure(s): XR knee RT 3V Accession Number(s): [id number] cc: CHARLES BATES MD; Anjali Jacome MD Reason for Exam: atraumatic right posterior knee pain EXAMINATION: XR KNEE, RIGHT CLINICAL INFORMATION: atraumatic right posterior knee pain COMPARISON: None available. TECHNIQUE: Three views of the right knee. FINDINGS: Moderate vascular calcifications are present. There is a small enthesophyte at the quadriceps attachment on patella. There is minimal medial greater than lateral joint space narrowing. There is no joint effusion. Faint density in the lateral greater than medial joint line could represent chondrocalcinosis. Minute marginal osteophyte is present at the lateral patellofemoral joint and tibial plateau. XR/XR knee RT 3V IMPRESSION: Minimal degenerative change. Electronically signed by: Stefano Dior MD 07/09/2025 12:33 PM [facility] Dictated By: Stefano Dior MD Signed By: <Electronically signed by Stefano Dior MD in OV> 07/09/25 1233 DD/ 1319 TD/TT: 07/09/251228 Chief Information Officer: Charles Bates MD IMG XR PROCEDURES Edited Result - Final documented in this encounter Visit Diagnoses Diagnosis Right calf pain- Primary Acute pain of right knee Essential hypertension Unspecified essential hypertension documented in this encounter Additional Health Concerns Assessment Noted Time PHQ-9 Depression Total Score: 0 04/14/20 24 9:38 AM EDT documented as of this encounter Care Teams Paper Coating Machine Operator Relationship Specialty Start Date End Date Anjali Jacome MD [address] [place] [address] PCP - General Family Medicine 06/03/22 Jones Bhatt, AsherD [address] [place] [address] Pharmacist Internal Medicine 02/20/25 documented as of this encounter
--- OUTSIDE RECORDS SUMMARY | 2025-07-09 15:16 | XMS_ITS | Encounter Summary ---
Author Organization [employer] Address 75 [facility] 7t [place] [address] Care Team Providers Care Layer Up Name Role Phone Anjali Jacome MD Primary Care Provide r Jones Bhatt PharmD Unavailable [phone] Encounter Details Date Type Department Care Team ([facility] Contact Info) Description 07/04/2025 Telephone [facility] [address] [place] [address] Anjali Jacome MD [address] [place] [address] Social History Tobacco Use Types Packs/Day Years [...] encounter Miscellaneous Notes * Telephone Encounter - Jones Bhatt PharmD - 07/04/2025 8:51 AM EDT Pharmacy is requesting an updated CDTM referral with a diagnosis of diabetes and hypertension . This is to replace existing referral which does not meet visit requirements. Please send at your earliest convenience. Thank you! documented in this encounter Plan of Treatment Upcoming Encounters Date Type Department Care Team (Late st Contact Info) Description 07/18/2025 10:00 AM EST Medication Management [facility] [address] [place] [address]36 Jones Bhatt PharmD [address] [place] [address] 07/31/2025 10:00 AM EST Office Visit [address] [address] Anjali Jacome MD [address] [place] [address] 09/13/2025 10:00 AM EST Office Visit [address] [address] Anjali Jacome MD [address] [place] [address] documented as of this encounter Visit Diagnoses Not on filedocumented in this encounter Additional Health Concerns Assessment Noted Time PHQ-9 Depression Total Score: 0 04/14/20 24 9:38 AM EDT documented as of this encounter Care Teams Layer Up Relationship Specialty Start Date End Date Anjali Jacome MD [address] [place] [address] PCP - General Family Medicine 06/03/22 Jones Bhatt, AsherD [address] [place] [address]58 Pharmacist Internal Medicine 02/20/25 documented as of this encounter
--- OUTSIDE RECORDS SUMMARY | 2025-07-09 15:16 | XMS_ITS | Encounter Summary ---
Author Organization [employer] Address 75 [facility] 7t [place] [address] Care Team Providers Care Tower Crane Operator Name Role Phone Anjali Jacome MD Primary Care Provide r Coretta Grady PharmD Unavailable [phone] Jones Bhatt PharmD Unavailable [phone] Reason for Visit * Reason Onset Date Comments HDF 08/02/2023 Encounter Details Date Type Department Care Team ([facility] st Contact Info) Description 08/02/2023 Telephone [facility] [address] [place], [place] [phone] Anjali Jacome MD [address] [place], [place] [phone] HDF Social History Tobacco Use Types Packs/Day [...] Miscellaneous Notes * Telephone Encounter - Giuliana Walker - 08/02/2023 9:33 AM EST TC from daughter of pt calling for HDF follow up appointment and reports Urine infection and pneumonia. Patient hospitalized at [facility] and discharged on 07/24. Patient advised will forward to triage nurse for follow up and appointment. PCP Dr. Mosley documented in this encounter Plan of Treatment Upcoming Encounters Date Type Department Care Team (Late st Contact Info) Description 07/18/2025 10:00 AM EST Medication Management [address] [address] Jones Bhatt, PharmD [address] [place] [address] 07/31/2025 10:00 AM EST Office Visit [address] [address] Anjali Jacome MD [address] [place] [address] 09/13/2025 10:00 AM EST Office Visit [address] [address] Anjali Jacome MD [address] [place] [address] 8[address] documented as of this encounter Visit Diagnoses Not on filedocumented in this encounter Additional Health Concerns Assessment Noted Time PHQ-9 Depression Total Score: 0 02/05/20 23 2:18 PM EDT documented as of this encounter Care Teams Tower Crane Operator Relationship Specialty Start Date End Date Anjali Jacome MD [address] [place] [address] PCP - General Family Medicine 06/03/22 Coretta Grady, PharmD [address] [place] [address] Pharmacist Internal Medicine 05/04/24 02/19/25 Jones Bhatt, PharmD [address] [place] [address] Pharmacist Internal Medicine 02/20/25 documented as of this encounter
--- OUTSIDE RECORDS SUMMARY | 2025-07-09 15:16 | XMS_ITS | Encounter Summary ---
Author Organization [employer] Address [address] [facility] [address] 7t [place] [address] Care Team Providers Care Oyster Worker Name Role Phone Anjali Jacome MD Primary Care Provide r Coretta Grady PharmD Unavailable [phone] Jones Bhatt PharmD Unavailable [phone] Encounter Details Date Type Department Care Team (Late st Contact Info) Description 06/15/2023 Orders Only [facility] [address] [place] [address] Devi Dumont LPN Social History Tobacco Use [...] the past 12 months, has t he [employer], gas, oil or water [employer] threatened to shut off services in your [...] Description 07/18/2025 10:00 AM EST Medication Management [facility] [address] [place] [address] Jones Bhatt, PharmD [address] [place] [address] 07/31/2025 10:00 AM EST Office Visit [address] [address] Anjali Jacome MD [address] [place] [address] 09/13/2025 10:00 AM EST Office Visit [address] [address] Anjali Jacome MD [address] [place] [address] documented as of this encounter Visit Diagnoses Not on filedocumented in this encounter Additional Health Concerns Assessment Noted Time PHQ-9 Depression Total Score: 0 02/05/20 23 2:18 PM EDT documented as of this encounter Care Teams Oyster Worker Relationship Specialty Start Date End Date Anjali Jacome MD [address] [place] [address] PCP - General Family Medicine 06/03/22 Coretta Grady, AsherD [address] [place] [phone] Pharmacist Internal Medicine 05/04/24 02/19/25 Jones Bhatt, PharmD [address] [place] [phone] Pharmacist Internal Medicine 02/20/25 documented as of this encounter
--- OUTSIDE RECORDS SUMMARY | 2025-07-09 15:16 | XMS_ITS | Encounter Summary ---
Author Organization [employer] Address 75 [facility] 7t [place] [address] Care Team Providers Care Business Area Director Name Role Phone Anjali Jacome MD Primary Care Provide r Jones Bhatt PharmD Unavailable [phone] Encounter Details Date Type Department Care Team (Latest Contact Info) Description 07/09/2025 Travel Social History Tobacco Use Types Packs/Day Years [...] the past 12 months, has t he [employer], gas, oil or water [employer] threatened to shut off services in your [...] Description 07/18/2025 10:00 AM EST Medication Management [address] [address] Jones Bhatt, PharmD [address] [place] [address] 07/31/2025 10:00 AM EST Office Visit [address] [address] Anjali Jacome MD [address] [place] [address] 09/13/2025 10:00 AM EST Office Visit [address] [address] Anjali Jacome MD [address] [place] [address] documented as of this encounter Visit Diagnoses Not on filedocumented in this encounter Additional Health Concerns Assessment Noted Time PHQ-9 Depression Total Score: 0 04/14/20 24 9:38 AM EDT documented as of this encounter Care Teams Business Area Director Relationship Specialty Start Date End Date Anjali Jacome MD [address] [place] [address] PCP - General Family Medicine 06/03/22 Jones Bhatt, PharmD [address] [place] [address] Pharmacist Internal Medicine 02/20/25 documented as of this encounter
--- OUTSIDE RECORDS SUMMARY | 2025-07-09 15:16 | XMS_ITS | Encounter Summary ---
Author Organization [email or web address] Address [address] [facility] 7t [place] [address] Care Team Providers Care Injection Molding Supervisor Name Role Phone Anjali Jacome MD Primary Care Provide r Jones Bhatt PharmD Unavailable [phone] Reason for Referral * Consultation (Routine) - Authorized Specialty Diagnoses / Procedures Referred By Contmichelle t Referred To Contact Pharmacy Diagnoses Type 2 diabetes mellitus with stage 3b chronic kidney disease, with long-term current use of insulin (HCC) Essential hypertension Anjali Jacome MD [address] [place] [address] Phone: tel: fax: Referral ID Status Reason Start Date Expiration Date Visits Requested Visits Authorized [id number] Authorized Consult and Treat 07/04/2025 07/04/2026 6 6 Encounter Details Date Type Department Care Team (Late st Contact Info) Description 07/04/2025 Orders Only [facility] [address] [place] [address] [phone] Anjali Jacome MD [address] [place] [address] [phone] Type 2 diabetes mellitus with stage 3b chronic kidney disease, with long-term current use of insulin (HCC) (Primary Dx); Essential hypertension Social History Tobacco Use Types [...] t he electric, gas, oil or water [employer] threatened to shut off services in your [...] Description 07/18/2025 10:00 AM EST Medication Management [facility] [address] [place] [address] Jones Bhatt, PharmD [address] [place] [address] 07/31/2025 10:00 AM EST Office Visit [facility] [address] [place] [address] [phone] Anjali Jacome MD [address] [place], [place] [phone] 09/13/2025 10:00 AM EST Office Visit [facility] [address] [place], [place] [phone] Anjali Jacome MD [address] [place], [place] [phone] Scheduled Referrals Name Type Priority Associated Diagnoses Orde r Schedule Referral to Pharmacy CDTM Outpatient Referral Routine Type 2 diabetes mellitus with stage 3b chronic kidney disease, with long-term current use of insulin (HCC) Essential hypertension Ordered: 07/04/2025 documented as of this encounter Procedures Procedure Name Priority Date/Time Associated Diagnosis Comments US VENOUS DUPLEX LE RT Routine 07/09/2025 12:32 PM EST documented in this encounter Results * US VENOUS DUPLEX LE RT (07/09/2025 12:32 PM EST) Anatomical Region Laterality Modality Abdomen Ultrasound 07/09/2025 12:3 2 PM EST Narrative 07/09/2025 12:49 PM EST [address] [address] Ultrasound Report Signed Patient: Solomon Mcgrath MR#: [id number] : 1940 Acct:[id number] Age/Sex: 84 / M ADM Date: 07/09/25 Loc: HO.US Attending Dr: Charles Bates MD Ordering Physician: CHARLES BATES MD Date of Service: 07/09/25 Procedure(s): US venous duplex LE RT Accession Number(s): [id number] cc: CHARLES BATES MD; Anjali Jacome MD Reason for Exam: RIGHT CALF PAIN, TENDERNESS RIGHT CALF, R/O DVT EXAMINATION: US TRIPLEX LOWER EXTREMITY, RIGHT CLINICAL INFORMATION: Right calf pain and tenderness COMPARISON: None available. TECHNIQUE: Color-flow triplex imaging with spectral analysis and compression Doppler were performed on the right lower extremity. FINDINGS: Respiratory variation, normal compression and augmented flow are noted throughout the right lower extremity. The visualized common femoral vein, superficial femoral vein, profunda femoral vein, popliteal vein and midcalf peroneal and posterior tibial venous segments show no evidence of deep venous thrombosis. US/US venous duplex LE RT IMPRESSION: No evidence of deep venous thrombosis involving the right lower extremity. Electronically signed by: Stefano Dior MD 07/09/2025 12:46 PM [facility] Dictated By: Stefano Dior MD Signed By: <Electronically signed by Stefano Dior MD in OV> 07/09/25 1246 DD/ 1232 TD/TT: 07/09/25 1240 Retail Customer Service Specialist: Procedure Note Donotuseinterpreter, Image - 07/09/2025 [place] [address] Ultrasound Report Signed Patient: Solomon McgrathMR#: [id number] : 1940cct:[id number] Age/Sex: 84 / MADM Date: 07/09/25 Loc: . Attending Dr: Charles Bates MD Ordering Physician: CHARLES BATES MD Date of Service: 07/09/25 Procedure(s): US venous duplex LE RT Accession Number(s): [id number] cc: CHARLES BATES MD; Anjali Jacome MD Reason for Exam: RIGHT CALF PAIN, TENDERNESS RIGHT CALF, R/O DVT EXAMINATION: US TRIPLEX LOWER EXTREMITY, RIGHT CLINICAL INFORMATION: Right calf pain and tenderness COMPARISON: None available. TECHNIQUE: Color-flow triplex imaging with spectral analysis and compression Doppler were performed on the right lower extremity. FINDINGS: Respiratory variation, normal compression and augmented flow are noted throughout the right lower extremity. The visualized common femoral vein, superficial femoral vein, profunda femoral vein, popliteal vein and midcalf peroneal and posterior tibial venous segments show no evidence of deep venous thrombosis. US/US venous duplex LE RT IMPRESSION: No evidence of deep venous thrombosis involving the right lower extremity. Electronically signed by: Stefano Dior MD 07/09/2025 12:46 PM EST RP Dictated By: Stefano Dior MD Signed By: <Electronically signed by Stefano Dior MD in OV> 07/09/25 1246 DD/ 1232 TD/TT: 07/09/25 1240 Retail Customer Service Specialist: Charles Bates MD [facility] PROCEDURES Edited Result - Final documented in this encounter Visit Diagnoses Diagnosis Type 2 diabetes mellitus with stage 3b chronic kidney disease, with long-term current use of insulin (HCC)- Primary Essential hypertension Unspecified essential hypertension documented in this encounter Additional Health Concerns Assessment Noted Time PHQ-9 Depression Total Score: 0 04/14/20 24 9:38 AM EDT documented as of this encounter Care Teams Injection Molding Supervisor Relationship Specialty Start Date End Date Anjali Jacome MD [address] [place] [address] PCP - General Family Medicine 06/03/22 Jones Bhatt, AsherD [address] [place] [address] Pharmacist Internal Medicine 02/20/25 documented as of this encounter
--- OUTSIDE RECORDS SUMMARY | 2025-07-09 15:16 | XMS_ITS | Encounter Summary ---
Author Organization [employer] Address [address] [facility] [address] 7t [place] [address] Care Team Providers Care Bridge Toll Collector Name Role Phone Anjali Jacome MD Primary Care Provide r Coretta Grady PharmD Unavailable [phone] Jonse Bhatt PharmD Unavailable [phone] Encounter Details Date Type Department Care Team (Late st Contact Info) Description 07/05/2023 Telephone [facility] [address] [place] [address] Anjali Jacome MD 230 [place], [place] [phone] Social History Tobacco Use Types Packs/Day Years [...] Description 07/18/2025 10:00 AM EST Medication Management [address] [address] Jones Bhatt, AsherD [address] [place] [phone] 07/31/2025 10:00 AM EST Office Visit [address] [address] Anjali Jacome MD [address] [place] [address] 09/13/2025 10:00 AM EST Office Visit [address] [address] Anjali Jacome MD [address] [place] [address] documented as of this encounter Visit Diagnoses Not on filedocumented in this encounter Additional Health Concerns Assessment Noted Time PHQ-9 Depression Total Score: 0 02/05/20 23 2:18 PM EDT documented as of this encounter Care Teams Bridge Toll Collector Relationship Specialty Start Date End Date Anjali Jacome MD [address] [place] [phone] PCP - General Family Medicine 06/03/22 Coretta Grady, PharmD 230 [place] [address] Pharmacist Internal Medicine 05/04/24 02/19/25 Jones Bhatt, PharmD 230 [place] [address] Pharmacist Internal Medicine 02/20/25 documented as of this encounter
--- OUTSIDE RECORDS SUMMARY | 2025-07-09 15:17 | XMS_ITS | Encounter Summary ---
Author Organization [employer] Address [address] 7t [place] [address] Care Team Providers Care Felt Cementer Name Role Phone Anjali Jacome MD Primary Care Provide r Jones Bhatt PharmD Unavailable [phone] Encounter Details Date Type Department Care Team ([facility] Contact Info) Description 07/09/2025 Results Follow-Up [facility] [address] [place] [address] Charles Bates MD [address] [place] [address] XR Knee 3 Views Right Social History Tobacco Use Types Packs/Day Years [...] Description 07/18/2025 10:00 AM EST Medication Management [address] [address] Jones Bhatt, PharmD [address] [place] [address] 07/31/2025 10:00 AM EST Office Visit [address] [address] Anjali Jacome MD [address] [place] [address] 09/13/2025 10:00 AM EST Office Visit [address] [address] Anjali Jacome MD [address] [place] [address] documented as of this encounter Visit Diagnoses Not on filedocumented in this encounter Additional Health Concerns Assessment Noted Time PHQ-9 Depression Total Score: 0 04/14/20 24 9:38 AM EDT documented as of this encounter Care Teams Felt Cementer Relationship Specialty Start Date End Date Anjali Jacome MD [address] [place], [place] [phone] PCP - General Family Medicine 06/03/22 Jones Bhatt, AsherD [address] [place] [address] Pharmacist Internal Medicine 02/20/25 documented as of this encounter
--- OUTSIDE RECORDS SUMMARY | 2025-07-09 15:17 | XMS_ITS | Encounter Summary ---
Author Organization [employer] Address [address] [facility] 7t [place] [address] Care Team Providers Care Associate Professor Of Psychology Name Role Phone Anjali Jacome MD Primary Care Provide r Coretta Grady PharmD Unavailable [phone] Jones Bhatt PharmD Unavailable [phone] Encounter Details Date Type Department Care Team (Late Contact Info) Description 11/09/2022 Orders Only [facility] [address] [place] [address] Jane Howell LPN Social History Tobacco Use [...] Department Care Team (Late Contact Info) Description 07/18/2025 10:00 AM EST Medication Management [facility] [address] [place] [phone] Jones Bhatt, PharmD [address] [place] [address] [phone] 07/31/2025 10:00 AM EST Office Visit [facility] [address] [place] [address] [phone] Anjali Jacome MD [address] [place] [phone] 09/13/2025 10:00 AM EST Office Visit [facility] [address] [place], [place] [phone] Anjali Jacome MD [address] [place] [address] [phone] documented as of this encounter Visit Diagnoses Not on filedocumented in this encounter Care Teams Associate Professor Of Psychology Relationship Specialty Start Date End Date Anjali Jacome MD [address] [place] [address] [phone] PCP - General Family Medicine 06/03/22 Coretta Grady, PharmD [address] [place] [address] [phone] Pharmacist Internal Medicine 05/04/24 02/19/25 Jones Bhatt, PharmD [address] [place] [address] [phone] Pharmacist Internal Medicine 02/20/25 documented as of this encounter
--- OUTSIDE RECORDS SUMMARY | 2025-07-09 15:17 | XMS_ITS | Clinical Summary ---
Author Organization [employer] Address [address] [facility] 7t [place] [address] Care Team Providers Care Design Verification Engineer Name Role Phone Anjali Jacome MD Primary Care Provide r Jones Bhatt PharmD Unavailable [phone] Allergies Active Allergy Reactions Criticality Noted Date [...] disease, with long-term current use of insulin ([facility]) TEST BLOOD SUGAR TWICE DAILY 100 each 11 07/20/20 24 Active FREESTYLE LITE test stripIndications :Type 2 diabetes mellitus with stage 3b chronic kidney disease, with long-term current use of insulin ([facility]) Test blood sugar twice daily 100 strip 11 11/01/19 25 Active metoprolol succinate XL (Toprol-XL) 50 MG 24 hr tablet Take 50 mg by mouth in the morning. 12/19/19 25 Active empagliflozin (Jardiance) 10 MGIndications:Ty pe 2 diabetes mellitus with stage 3b chronic kidney disease, with long-term current use of insulin ([facility]) Take 1 tablet (10 mg) by mouth Once per day. 30 tablet 5 02/21/20 25 Active Dulaglutide (Trulicity) 0.75 MG/0.5ML solution auto-injectorInd ications:Type 2 diabetes mellitus with stage 3b chronic kidney disease, with long-term current use of insulin ([facility]) INJECT ONE PEN (=0.75MG) SUBCUTANEOUSLY ONCE A WEEK DIRECTED 2 mL 5 03/16/20 25 Active omeprazole (PriLOSEC) [address] capsuleIndicatirojas ns:Unspecified abdominal pain TAKE 1 CAPSULE BY MOUTH EVERY MORNING BEFORE MEALS 90 capsule 1 04/10/20 25 Active Aspirin Low Dose 81 MG EC tablet TAKE 1 TABLET BY MOUTH EVERY MORNING 90 tablet 1 04/10/20 25 Active atorvastatin (Lipitor) 80 MG tablet TAKE 1 TABLET BY MOUTH AT BEDTIME 90 tablet 1 04/10/20 25 Active tiZANidine (Zanaflex) 2 MG tablet Take 1 tablet (2 mg) by mouth if needed at bedtime for muscle spasms. 15 tablet 07/09/20 25 Active Active Problems Problem Noted Date [...] Encounters Date Type Department Care Team Description 07/09/2025 9:20 AM EST Office Visit [facility] [address] [place] [phone] Charles Bates MD Right calf pain (Primary Dx); Acute pain of right knee; Essential hypertension 07/09/2025 Results Follow-Up [facility] [address] [place] [address] Charles Bates MD XR Knee 3 Views Right 07/09/2025 Travel 07/04/2025 Orders Only [facility] [address] [place] [address] Anjali Jacome MD Type 2 diabetes mellitus with stage 3b chronic kidney disease, with long-term current use of insulin (HCC) (Primary Dx); Essential hypertension 07/04/2025 Telephone [facility] [address] [place] [address] Anjali Jacome MD 06/29/2025 Telephone [facility] [address] [place] [address] Anjali Jacome MD cr recall 05/15/2025 Telephone [facility] [address] [place] [address] Anjali Jacome MD No Show 05/14/[address] [address] Anjali Jacome MD chart prep 04/10/2025 Refill [facility] [address] [place] [address] Anjali Jacome MD Unspecified abdominal pain from Last 3 Months Immunizations Immunization Administration [...] 18 07/09/2025 9:08 AM EST Oxygen Saturation 100% 11/01/2024 8:54 AM EST Inhaled Oxygen Concentration - - Weight 63.7 kg (140 lb 6.4 oz) 07/09/2025 9:08 A M EST Height 160 cm (5' 3 ) 07/09/2025 9:08 AM EST Body Mass Index 24.87 07/09/2025 9:08 AM EST Plan of Treatment Upcoming Encounters Date Type Department Care Team (Late st Contact Info) Description 07/18/2025 10:00 AM EST Medication Management [address] [address] Jones Bhatt, PharmD [address] [place] [address] 07/31/2025 10:00 AM EST Office Visit [address] [address] Anjali Jacome MD [address] [place] [phone] 09/13/2025 10:00 AM EST Office Visit [address] [address] Anjali Jacome MD [address] [place] [address] Health Maintenance Due Date Last Done Comments Diabetes: Foot Exam 1951 Eye Exam 1951 Alcohol/Substance Use Screening 1952 Zoster Vaccines (2 of 3) 11/09/2017 09/14/2017 SDOH Screening 01/29/2024 01/28/2023 Depression Screening 04/14/2025 04/14/2024, 04/14/20 24 Diabetes: Hemoglobin A1C 05/23/2025 025, 11/01/2024, 07/17/2024, Additional history exists COVID-19 Vaccine ( season) 2025 05/24/2025, 01/22/2022, 07/22/2021, Additional history exists Lipid Panel 04/04/2026 04/04/2025, 05/07, 02/12/2023, Additional history exists Tobacco Screening 07/09/2026 07/09/2025 DTaP/Tdap/Td Vaccines (3 - Td or Tdap) 02/20/2035 02/20/2025, 09/19/2013, 11/11/2011, Additional history exists Hepatitis B Vaccines Completed 03/17/2018, 10/18/2017, 09/14/2017 Pneumococcal Vaccine: 50+ Years Completed 06/01/2022, 11/11/2011, 07/16/2005 RSV Patients and Patients Aged 60 years or older Completed 05/04/2024 Influenza Vaccine Completed 05/24/2025, , 06/01/2022, Additional history exists HIB Vaccines [...] PM EST Acute pain of right knee US VENOUS DUPLEX LE RT Routine 07/09/2025 12:32 PM EST LIPID PANEL, STANDARD Routine 04/04/2025 11:07 AM EDT POCT GLYCATED HEMOGLOBIN, TOTAL Routine 02/20/2025 10:44 AM EDT Type 2 diabetes mellitus with stage 3b chronic kidney disease, with long-term current use of insulin ([facility]) from Last 3 Months or Most Recently Relevant to Health Maintenance Results * XR Knee 3 Views Right (07/09/2025 1:19 PM EST) Anatomical Region Laterality Modality Lower Extremities, Knee Right Radiogra phic Imaging 07/09/2025 1:19 PM EST Narrative 07/09/2025 12:36 PM EST [address] [address] XRay Report Signed Patient: Solomon Mcgrath MR#: [id number] : 1940 Acct:[id number] Age/Sex: 84 / M ADM Date: 07/09/25 Loc: HO. Attending Dr: Charles Bates MD Ordering Physician: CHARLES BATES MD Date of Service: 07/09/25 Procedure(s): XR knee RT 3V Accession Number(s): [id number] cc: CHARLES BATES MD; Anjali Jacome MD [...] OV> 07/09/25 1233 DD/ 1319 TD/TT: 07/09/25 1229 Stereo Equipment Installer: Procedure Note Donotjosephter, Image - 07/09/[address] [address] XRay Report Signed Patient: Solomon McgrathMR#: [id number] : 1940cct:[id number] Age/Sex: 84 / MADM Date: 07/09/25 Loc: . Attending Dr: Charles Bates MD Ordering Physician: CHARLES BATES MD Date of Service: 07/09/25 Procedure(s): XR knee RT 3V Accession Number(s): [id number] cc: CHARLES BATES MD; Anjali Jacome MD [...] Stefano Dior MD 07/09/2025 12:33 PM EST RP Dictated By: Stefano Dior MD Signed By: <Electronically signed by Stefano Dior MD in OV> 07/09/25 1233 DD/ 1319 TD/TT: 07/09/259 Stereo Equipment Installer: us Charles Bates MD IMG XR PROCEDURES Edited Result - Final * US VENOUS DUPLEX LE RT (07/09/2025 12:32 PM EST) Anatomical Region Laterality Modality Abdomen Ultrasound 07/09/2025 12:3 2 PM EST Narrative 07/09/2025 12:49 PM EST [address] [address] Ultrasound Report Signed Patient: Solomon Mcgrath MR#: [id number] : 1940 Acct:[id number] Age/Sex: 84 / M ADM Date: 07/09/25 Loc: HO.US Attending Dr: Charles Bates MD Ordering Physician: CHARLES BATES MD Date of Service: 07/09/25 Procedure(s): US venous duplex LE RT Accession Number(s): [id number] cc: CHARLES BATES MD; Anjali Jacome MD [...] Stefano Dior MD 07/09/2025 12:46 PM EST Dictated By: Stefano Dior MD Signed By: <Electronically signed by Stefano Dior MD in OV> 07/09/25 1246 DD/ 1232 TD/TT: 07/09/25 1240 Stereo Equipment Installer: Procedure Note Donotuseinterpreter, Image - 07/09/[address] [address] Ultrasound Report Signed Patient: Solomon McgrathMR#: [id number] : 1Acct:[id number] Age/Sex: 84 / MADM Date: 07/09/25 Loc: HO.US Attending Dr: Charles Bates MD Ordering Physician: CHARLES BATES MD Date of Service: 07/09/25 Procedure(s): US venous duplex LE RT Accession Number(s): [id number] cc: CHARLES BATES MD; Anjali Jacome MD [...] by: Stefano Dior MD 07/09/2025 12:46 PM [facility] Dictated By: Stefano Dior MD Signed By: <Electronically signed by Stefano Dior MD in OV> 07/09/25 1246 DD/ 1232 TD/TT: 07/09/25 1240 Stereo Equipment Installer: Charles Bates MD [facility] PROCEDURES Edited Result - Final * (ABNORMAL) Lipid Panel, Standard (04/04/2025 11:07 AM EDT) Triglycerides 179(H) <150 mg/dL [facility] Comment:Desirable Triglyceri de: less than 150 mg/dLBorderline High Triglyceride 150-199 mg/dLHigh Triglyceride: 200-499 mg/dLVery High Triglyceride: greater than or equal to 5OO mg/dL Cholesterol 124 <200 mg/dL [facility] Comment:Desirable Cholestero l: less than 200 mg/dLBorderline High Cholesterol: 200-239 mg/dLHigh Cholesterol: greater than 239 mg/dL LDL Cholesterol Calculated 67 <100 mg/dL [facility] Comment:Desirable LDL: less than 100 mg/dLNear Optimal/Above Optimal LDL: 110- 129 mg/dLBorderline High LDL: 130-159 mg/dLHigh LDL: 160-189 mg/dLVery High LDL: greater than or equal to 190 mg/dL HDL Cholesterol 22(L) >40 mg/dL [facility] Comment:Desirable HDL: great er than 40 mg/dL Note: This HDL assay may give artificially low results in patients with liver disease. 04/04/2025 11:0 7 AM EDT 04/04/2025 1:19 PM EDT us Generic External Data Provider LAB BLOOD ORDERAB LES Final Result [facility] [address] [place] [phone] * (ABNORMAL) POCT HGB A1C (02/20/2025 10:44 AM EDT) Hemoglobin A1C 7.9(A) 4.0 - 6.0 % QC Media Lot # [id number] Lot# Expiration Date ,596,[id number] Blood 02/20/2025 10:4 4 AM EDT us Anjali Car MD POINT OF CARE TEST EN TER/EDIT ORDERABLES Final Result from Last 3 Months or Most Recently Relevant to Health Maintenance Insurance [facility] [employer] (HMO D-SNP) [place] [id number] Care Teams Design Verification Engineer Relationship Specialty Start Date End Date Anjali Jacome MD [address] [place], [place] PCP - General Family Medicine 06/03/22 Jones Bhatt, PharmD [address] [place], [place] Pharmacist Internal Medicine 02/20/25
--- OUTSIDE RECORDS SUMMARY | 2025-07-09 15:17 | XMS_ITS | Encounter Summary ---
Author Organization [employer] Address [address] 7[address] [place] [address] Care Team Providers Care Entry Level Chemist Name Role Phone Anjali Jacome MD Primary Care Provide r Coretta Grady PharmD Unavailable [phone]- Jones Bhatt PharmD Unavailable [phone] Reason for Visit * Reason Comments Med Refill Encounter Details Date Type Department Care Team (Late st Contact Info) Description 08/08/2023 Refill [facility] [address] [place] [address] Anjali Jacome MD [address] [place], [place] [phone] Social History Tobacco Use Types Packs/Day Years [...] Description 07/18/2025 10:00 AM EST Medication Management [address] [address] Jones Bhatt, PharmD [address] [place] [address] 07/31/2025 10:00 AM EST Office Visit [address] [address] Anjali Jacome MD [address] [place] [address] 09/13/2025 10:00 AM EST Office Visit [address] [address] Anjali Jacome MD [address] [place] [phone] documented as of this encounter Visit Diagnoses Not on filedocumented in this encounter Additional Health Concerns Assessment Noted Time PHQ-9 Depression Total Score: 0 02/05/20 23 2:18 PM EDT documented as of this encounter Care Teams Entry Level Chemist Relationship Specialty Start Date End Date Anjali Jacome MD [address] [place] [phone] PCP - General Family Medicine 06/03/22 Coretta Grady, PharmD [address] [place] [address] Pharmacist Internal Medicine 05/04/24 02/19/25 Jones Bhatt, AsherD [address] [place] [address] Pharmacist Internal Medicine 02/20/25 documented as of this encounter
--- OUTSIDE RECORDS SUMMARY | 2025-07-09 15:17 | XMS_ITS | Encounter Summary ---
Author Organization [employer] Address [address] [facility] [address] [place] [address] Care Team Providers Care Boot Lace Cutter Machine Name Role Phone Anjali Jacome MD Primary Care Provide r Coretta Grady PharmD Unavailable [phone] Jones Bhatt PharmD Unavailable [phone] Reason for Visit * Reason Onset Date Comments PA 10/19/2022 Encounter Details Date Type Department Care Team ([facility] st Contact Info) Description 10/19/2022 Telephone [facility] [address] [place] [address] Anjali Jacome MD [address] [place] [address] PA Social History Tobacco Use Types Packs/Day [...] Description 07/18/2025 10:00 AM EST Medication Management [address] [address] Jones Bhatt, PharmD [address] [place] [phone] 07/31/2025 10:00 AM EST Office Visit [address] [address] Anjali Jacome MD [address] [place] [phone] 09/13/2025 10:00 AM EST Office Visit [address] [address] Anjali Jacome MD [address] [place] [phone] documented as of this encounter Visit Diagnoses Not on filedocumented in this encounter Care Teams Boot Lace Cutter Machine Relationship Specialty Start Date End Date Anjali Jacome MD [address] [place] [phone] PCP - General Family Medicine 06/03/22 Coretta Grady, PharmD [address] [place] [phone] Pharmacist Internal Medicine 05/04/24 02/19/25 Jones Bhatt, PharmD [address] [place] [phone] Pharmacist Internal Medicine 02/20/25 documented as of this encounter
--- OUTSIDE RECORDS SUMMARY | 2025-07-09 15:17 | XMS_ITS | Encounter Summary ---
Author Organization [employer] Address [address] [facility] 7t [place] [address] Care Team Providers Care Dental Cream Maker Name Role Phone Anjali Jacome MD Primary Care Provide r Coretta Grady PharmD Unavailable [phone] Jones Bhatt PharmD Unavailable [phone] Reason for Visit * Reason Comments Med Refill Encounter Details Date Type Department Care Team (Late st Contact Info) Description 10/26/2023 Refill [facility] [address] [place] [address] Anjali Jacome MD [address] [place], [place] [phone] Type 2 diabetes mellitus with other specified complication, unspecified whether nursing home insulin use ([facility]) Social History Tobacco Use Types Packs/Day [...] Description 07/18/2025 10:00 AM EST Medication Management [address] [address] Jones Bhatt, PharmD [address] [place] [phone] 07/31/2025 10:00 AM EST Office Visit [address] [address] Anjali Jacome MD [address] [place] [phone] 09/13/2025 10:00 AM EST Office Visit [address] [address] Anjali Jacome MD [address] [place] [phone] documented as of this encounter Visit Diagnoses Diagnosis Type 2 diabetes mellitus with other specified complication, unspecified whether nursing home insulin use (HCC) documented in this encounter Additional Health Concerns Assessment Noted Time PHQ-9 Depression Total Score: 0 02/05/20 23 2:18 PM EDT documented as of this encounter Care Teams Dental Cream Maker Relationship Specialty Start Date End Date Anjali Jacome MD [address] [place] [phone] PCP - General Family Medicine 06/03/22 Coretta Grady, PharmD [address] [place] [phone] Pharmacist Internal Medicine 05/04/24 02/19/25 Jones Bhatt, AsherD [address] [place] [phone] Pharmacist Internal Medicine 02/20/25 documented as of this encounter
== END 2025-07-09 12:04 | disposition home or self-care (01) ==
LOC: HO.US 12:03
PROVIDERS: PCP Internal Medicine; Visit Provider Emergency Medicine
DX: M25.561 Pain in right knee (principal); M79.661 Pain in right lower leg
CPT/HCPCS: 73562; 93971

== ENCOUNTER → 2025-07-09 12:09 | Outpatient (BNV) | payer OTHER, SELFPAY | PROVIDERS: PCP Internal Medicine; Visit Provider Radiology Diagnostic Radiology | DX: M79.661 Pain in right lower leg (principal); M17.11 Unilateral primary osteoarthritis, right knee | CPT/HCPCS: 73562; 93971 ==

== ENCOUNTER 2025-07-30 09:41 | Outpatient (AMB) | payer OTHER, SELFPAY ==
[2025-07-30 09:43] VITALS: BP 126/70; PULSE 76; BMI 23.8
--- NOTE | 2025-07-30 09:43 | MHC.OFFVIS ---
Vital Signs 07/30/25 09:43 Height 5 ft 3 in Weight 134 lb 7.712 oz BMI 23.8 BP 126/70 Blood Pressure Location Lt brachial Position Sitting Pulse 76 Pulse Source Monitor Intake Visit Reasons: 6 mthf/up Production Underwriter Required: Yes Production Underwriter Services: Production Underwriter Offered & Declined Accompanied by: Daughter Allergies No Known Allergies Allergy (Mild, Verified 01/23/25 09:20) NONE Medication List - Last Reconciled 07/30/25 by Ben Tomlinson MD aspirin 81 mg PO DAILY atorvastatin 80 mg PO DAILY dulaglutide (Trulicity) 0.75 mg subcut TU@0900 ezetimibe (Zetia) 10 mg PO DAILY metoprolol succinate ER 50 mg PO QAM omeprazole 20 mg PO QAM HPI Comments Details: Solomon returns for follow-up regarding coronary artery disease. He had an inferior STEMI in 2016. Overall, he is doing fine. He has got no cardiac complaints like angina or shortness of breath or in fact anything cardiac sounding. He states that he is doing really well. [facility] Medical History CKD (chronic kidney disease) stage 4, GFR 15-29 ml/min Renal osteodystrophy Stage 3 chronic kidney disease Coronary atherosclerosis Essential hypertension Mixed hyperlipidemia Mild nonproliferative diabetic retinopathy Benign prostatic hyperplasia Gastroesophageal reflux disease Type 2 diabetes mellitus with unspecified complications Atherosclerotic cardiovascular disease Surgical History No pertinent past surgical history Family History Father No problems noted. Mother No problems noted. Social History Household Members: Spouse Housing: Apartment Do you presently have visiting nurse or other home services: Yes Alcohol intake: never Patient Tobacco Use Status: Never used Tobacco service: No Review of Systems Const Denies weakness ENT Denies dizziness Card Denies chest pain, Denies chest pain with activity, Denies syncope, Denies rapid heart rate, Denies pedal edema, Denies edema, Denies leg edema, Denies lightheadedness, Denies palpitations, Denies dyspnea, Denies dyspnea on exertion and Denies orthopnea Resp Denies cough, Denies dyspnea and Denies dyspnea on exertion GI Denies hematochezia and Denies change in stool character Musc Denies abnormal gait, Denies muscle cramps, Denies muscle weakness, Denies numbness, Denies radiating pain into limb and Denies tingling Neuro Denies abnormal gait, Denies dizziness, Denies syncope, Denies numbness, Denies tingling and Denies weakness Endo Denies palpitations Physical Exam Vital Signs: Last Vital Signs Pulse 76 07/30/25 09:43 BP 126/70 07/30/25 09:43 BMI result Body Mass Index 23.8 Const General: comfortable and no acute distress Orientation/consciousness: patient oriented x3 HEENT Other: Unremarkable Head: Yes normal to inspection Neck Neck: Yes normal visual inspection Chest Chest palpation & inspection: normal inspection of the chest Resp Auscultation: clear to auscultation bilaterally Cardio Palpation: normal PMI Heart sounds: S1 normal heart sound present, S2 normal heart sound present, no gallops, Murmur heart sound present systolic II/ and at the right sternal border and no rubs GI Palpation (GI): Soft to palpation Back/Spine/Pelvis Other: unremarkable Skin General skin exam: no rashes or lesions noted Neuro General: patient oriented x3 Extrem General: Yes normal to inspection Psych Mental Status: mental status grossly normal Office Procedures EKG Details: EKG with underlying sinus rhythm at 76/Min; possible inferior and lateral infarct; [place] [address]-[id number], Complete Assessment & Plan Assessment & Plan (1) Atherosclerotic cardiovascular disease: Code(s): I25.10 - Atherosclerotic heart disease of habematolel coronary artery without angina pectoris Category: Medical Plan: Cardiac catheterization reviewed from 2016. At that time, RCA was small in size and thought to have chronic stenosis.? He also had intermediate grade lesions in the LAD; 100% stenosis distal circumflex.? Most recently, myocardial perfusion imaging study showed basal septal nontransmural infarct; basal inferior ischemia. Clinically, he has got absolutely no angina. Continue medical therapy. (2) Type 2 diabetes mellitus with unspecified complications: Code(s): E11.8 - Type 2 diabetes mellitus with unspecified complications Category: Medical Plan: On Trulicity. No recent hemoglobin A1c in our system. Random glucose 128. (3) Aortic valve calcification: Code(s): I35.9 - Nonrheumatic aortic valve disorder, unspecified Category: Medical Plan: In the recent echocardiogram, moderate aortic valve calcification with early stenosis. Can be followed on echocardiogram. (4) Mitral annular calcification: Code(s): I05.9 - Rheumatic mitral valve disease, unspecified Category: Medical Plan: Moderate mitral annular calcification. No significant valvular dysfunction. 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 We reviewed that the kidney function labs are on the higher side but have been stable for some time. I advised that we will continue to monitor this but will not make any changes at this time. The patient will follow up in six months. Patient was informed and verbally consented to the use of an ambient scribe for clinic note documentation during this visit. Patient Instructions: - Continue to take all your medications every day as prescribed. - Please return to the clinic for a follow-up appointment in six months. Coding Level of Care Code Est Pt Level 4 (77212) Complex visit Add On G2211 Diagnoses Atherosclerotic cardiovascular disease I25.10 Type 2 diabetes mellitus with unspecified complications E11.8 Aortic valve calcification I35.9 Mitral annular calcification I05.9 CPT Codes EKG - CPT: 65923-[id number], Complete ([id number])
--- OUTSIDE RECORDS SUMMARY | 2025-07-30 11:21 | XMS_ITS | Clinical Summary ---
Author Organization [facility] Address [address] [address] Phone Care Team Providers Care Managed Services Sales Consultant Name Role Phone Moe Nogueira Primary Care [...] Weight 62.5 kg (137 lb 12.8 oz) 024 1:09 PM EDT Height - - Body Mass Index - - Plan of Treatment Upcoming Encounters Date Type Department Care Team (Late st Contact Info) Description 08/16/2025 3:00 PM EST Office Visit [facility] [address] [place] [address] Evan Chauhan MD [address] [facility] [address] [place] [address] Health Maintenance Due Date Last Done Comments Diabetes: Ophthalmology Exam 10/06/2020 Diabetes: Pedal Pulse Checked 10/06/2020 Diabetes: Sensory Foot Exam 10/06/2020 Diabetes: Visual Foot Exam 10/06/2020 Influenza Vaccine (#1) 2025 4, 06/01/2022, 08/16/2019, Additional history exists Diabetes: Hemoglobin A1C 05/23/2025 025, 11/01/2024, 05/04/2024, Additional history exists Hepatitis B Vaccine Aged Out 03/17/2018, 10/18/2017, 09/14/2017 No longer eligible based on patient's age to complete this topic Pneumococcal Vaccine: 50+ Years Completed 06/01/2022, 11/11/2011, 07/16/2005 Pneumococcal Vaccine: Peds (0 to 5 Years) and At-Risk Patients (6 to 49 Years) Discontinued 06/01/2022, 11/11/2011, 07/16/2005 [place] [address] [facility] ([id number]) [facility] ([id number]) Care Teams Managed Services Sales Consultant Relationship Specialty Start Date End Date Moe Nogueira PCP - General Internal Medicine 04/01/21
== END 2025-07-30 10:08 | disposition home or self-care (01) ==
LOC: HO.HCS 09:42
PROVIDERS: PCP Internal Medicine; Visit Provider Internal Medicine
DX: I25.10 Atherosclerotic heart disease of native coronary artery without angina pectoris (principal); E11.8 Type 2 diabetes mellitus with unspecified complications; I35.9 Nonrheumatic aortic valve disorder, unspecified; I05.9 Rheumatic mitral valve disease, unspecified
CPT/HCPCS: 93010; 99214; G2211

== ENCOUNTER → 2025-07-30 09:41 | Outpatient (BNVA) | payer OTHER, SELFPAY | PROVIDERS: PCP Internal Medicine; Visit Provider Internal Medicine | DX: I25.10 Atherosclerotic heart disease of native coronary artery without angina pectoris (principal); E11.8 Type 2 diabetes mellitus with unspecified complications; I35.9 Nonrheumatic aortic valve disorder, unspecified; I05.9 Rheumatic mitral valve disease, unspecified | CPT/HCPCS: 93005; 99212 ==